=== PATIENT | female | born 2005 | race Caucasian/White ===

== ENCOUNTER 2024-11-29 21:43 | Emergency (ER) | payer OTHER, SELFPAY ==
[2024-11-29 21:43] VITALS: BP 146/96; PULSE 77; RESP 18; TEMP 36.7; O2SAT 98; BMI 39.7
[2024-11-29] MEDS: Ketorolac 30 MG/ML Syringe IM (22:34)
--- OUTSIDE RECORDS SUMMARY | 2024-11-29 22:35 | XMS RPT_ITS | CCD ---
Author Organization [facility] Care Team Providers Care Blind Aide Name Role Phone PATIENT, SELF Referring Unavailable JOSUE SAM Primary Care Unavailable PROVIDER, UNKNOWN Admitting Unavailable PROVIDER, UNKNOWN Attending Unavailable PROVIDER, UNKNOWN Attending Unavailable PATIENT, SELF Referring Unavailable JOSUE SAM Primary Care Unavailable PROVIDER, UNKNOWN Admitting Unavailable Jim Rueda Attending Unavailable Jim Rueda Attending Unavailable Jim Rueda Referring Unavailable Care Physician, No Primary Primary Care Unava ilable Jim Rueda Attending Unavailable JOSUE SAM Primary Care Unavailable RUTH MENJIVAR Attending Unavaila ble Unavailable Primary Care Provider Unavailabl e Medications Current Medications Medication Drug Class(es) Dates Sig (Normalized) Sig (Original) ethinyl estradiol 0.035 mg / norgestimate 0.25 mg oral tablet (3 sources) Progestin, Estrogen Start: 11-23-2019 norgestimate-ethin yl estradiol (PRAVIFEM- ORTHO/CYCLEN) 0.25-35 MG-MCG tablet Take 1 Tablet by mouth daily. 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 Chronic Mood disorders (3 sources) Major depressive affective disorder, recurrent episode, mild Onset: 05-11-2019 05-11-2019 Chronic Other hereditary and degenerative nervous system conditions (3 sources) Tics of organic origin Onset: 01-28-2019 01-28-2019 Chronic Other nutritional; endocrine; and metabolic disorders (3 sources) Obesity, unspecified Onset: 11-23-2019 11-23-2019 Chronic Other upper respiratory infections (1 source) Acute pharyngitis, unspecified; Translations: [Acute pharyngitis, unspecified etiology] Onset: 03-03-2024 Episodic Thyroid disorders (1 source) Goiter, unspecified 07-17-2023 Chronic Past or Other Problems Problem Classification Problem Date Documented Da te Episodic/Chronic Headache; including migraine (3 sources) Headache Onset: 01-28-2019 01-28-2019 Episodic Menopausal disorders (1 source) Hormone replacement therapy (postmenopausal) 06-17-2023 Episodic Results Test Name Value Interpretation Reference Range Facility [facility] SHERRI LOGAN ([id number]) 3 F Date Time Provider Department 03/04/24 RUTH MENJIVAR [facility] During your visit today, we recorded the following information about you: Adina Contreras LPN 03/04/2024 9:55 AM Signed ----- Message from Ruth Menjivar MD sent at 03/04/2024 7:39 AM EST ----- Please inform patient PCR positive for strep pharyngitis. Finish amoxicillin as directed. Adina Contreras LPN 03/04/2024 9:56 AM Signed Patient notified of lab results, pt voiced understanding of the results. Adina Contreras LPN Allergies As of Date: 03/04/2024 (No Known Allergies) Date Reviewed: 03/03/2024 Reviewed by: Ruth Menjivar MD - Fully Assessed Reason for Visit: Results [95] Prescriptions as of 03/04/2024 - etonogestrel (NEXPLANON) subdermal implant 68 mg 68 mg. - amoxicillin (AMOXIL) 875 mg tablet Take 1 tablet by mouth two times a day for 10 days. - ibuprofen (MOTRIN) 600 mg tablet Take 1 tablet by mouth every 6 hours. Take with food. Problem List As Of Date: 03/04/2024 (None) Encounter Status:Closed by ADINA CONTRERAS on 03/04/24 [facility] CNPN Telephone ([facility]NCA) SHERRI LOGAN ([id number]) 3 F Date Time Provider Department 03/04/24 RUTH MENJIVAR [facility] During your visit today, we recorded the following information about you: Ruth Menjivar MD 03/04/2024 4:30 PM Signed Please inform patient amoxicillin and ibuprofen sent to designated pharmacy. Savita Martinez LPN 03/04/2024 6:57 PM Signed Patient notified prescriptions have been sent to [facility] per patient request. Patient verbalized understanding. Savita Martinze LPN Allergies As of Date: 03/04/2024 (No Known Allergies) Date Reviewed: 03/03/2024 Reviewed by: Ruth Menjivar MD - Fully Assessed Reason for Visit: Patient Update [1234] Prescriptions as of 03/04/2024 - amoxicillin (AMOXIL) 875 mg tablet Take 1 tablet by mouth two times a day for 10 days. - ibuprofen (MOTRIN) 600 mg tablet Take 1 tablet by mouth every 6 hours. Take with food. - etonogestrel (NEXPLANON) subdermal implant 68 mg 68 mg. - amoxicillin (AMOXIL) 875 mg tablet Take 1 tablet by mouth two times a day for 10 days. - ibuprofen (MOTRIN) 600 mg tablet Take 1 tablet by mouth every 6 hours. Take with food. Problem List As Of Date: 03/04/2024 (None) Encounter Status:Closed by RUTH MENJIVAR on 03/04/24 [facility] CNOVon 03-03-2024 CN Office Visit (UCMNCA ) SHERRI LOGAN ([id number]) 3 F Date Time Provider Department 03/03/24 6:30 PM RUTH MENJIVAR [facility] During your visit today, we recorded the following information about you: Temperature Pulse Respiration Blood pressure 99.3 degrees 96/minute 16/minute 143/93 Weight Last Period 108.9 kg 02/17/24 Ruth Menjivar MD 03/03/2024 7:30 PM Signed Sherri Logan is a 18 year old female who presents with Sore Throat (Fatigue started on Friday) She is 18 years old presenting today with a sore throat, fatigue, cough since Friday. Patient reports that she attended a concert and shared water bottles with several individuals prior to getting sick. She states that she has not been able to work at her job at the [employer] since she became ill. She states that she has had plenty of strep pharyngitis when she was a kid and few as an adult. She presents today for further evaluation and treatment. PAST MEDICAL HISTORY Diagnosis Date Anxiety Depression There is no problem list on file for this patient. Current Outpatient Medications Medication Sig Dispense Refill etonogestrel (NEXPLANON) subdermal implant 68 mg 68 mg. hydrOXYzine HCl (ATARAX) 10 mg tablet Take 10 mg by mouth. (Patient not taking: Reported on 03/03/2024) FLUoxetine (PROZAC) 10 mg capsule Take 10 mg by mouth once daily. (Patient not taking: Reported on 03/03/2024) 3 cloNIDine HCl (CATAPRES) 0.1 mg tablet Take 0.1 mg by mouth daily at bedtime. (Patient not taking: Reported on 03/03/2024) 2 No current facility-administered medications for this visit. Social History Tobacco Use Smoking status: Never Smokeless tobacco: Never Vaping Use Vaping status: Never Used Substance Use Topics Alcohol use: Never Drug use: Never Alcohol Use: Never Tobacco Use: Never FAMILY HISTORY Problem Relation Age of Onset Depression Mother Diabetes Mother Diabetes Brother Review of Systems Constitutional: Positive for malaise/fatigue. Negative for chills and fever. HENT: Positive for sore throat. Negative for ear pain and sinus pain. Eyes: Negative for blurred vision. Respiratory: Positive for cough. Negative for hemoptysis, sputum production, shortness of breath, wheezing and stridor. Cardiovascular: Negative for chest pain. Gastrointestinal: Negative for abdominal pain. Skin: Negative for rash. Neurological: Negative for dizziness and headaches. BP 143/93 Pulse 96 Temp (Src) 99.3 (Temporal) Resp 16 Wt 240 lb (108.9kg) SpO2 100% LMP 02/17/2024 Physical Exam Vitals and nursing note reviewed. Constitutional: Comments: PHYSICAL EXAMINATION: GENERAL:The patient is alert oriented in no acute distress. HEAD: Head is atraumatic normocephalic. EYES: Extraocular muscles are intact bilaterally. Normal sclerae and conjunctivae. EARS: Tympanic membranes are normal in appearance without signs of infection. NOSE: No maxillary sinus tenderness bilaterally. MOUTH: Pharynx erythematous. Tonsils are not enlarged. Exudates not present. Uvula at midline. No dysphagia. No peritonsillar abscess. NECK: Trachea at midline. No anterior cervical adenopathy. No stridor. No trismus. No hoarseness. Normal phonation. LUNGS: No labored breathing. Lungs clear to auscultation. HEART: Regular rate and rhythm. No murmurs, rubs or gallops. MUSCULOSKELETAL: Moves all extremities. SKIN: Warm and dry no clubbing cyanosis or edema. No rashes. NEUROLOGY: Cranial nerves II through XII grossly intact without any focal neurological deficits. PSYCHIATRY: Cooperative. Normal mood and affect. Strep test negative. Cultures pending. My suspicion for strep pharyngitis is high I will treat with amoxicillin and ibuprofen. Home-going instructions discussed with patient. Follow-up if not improving. Discharged in stable condition. Procedures ASSESSMENT/PLAN: 1. Acute pharyngitis, unspecified etiology - ICD9: 462, ICD10: J02.9 - RAPID GROUP A STREP RFLX TO PCR - GROUP A STREPTOCOCCUS BY PCR - AMOXICILLIN 875 MG TABLET - IBUPROFEN 600 MG TABLET Ruth Shah MD 03/03/2024 7:29 PM Signed Discontinue ibuprofen if gastrointestinal upset develops. Patient instructed to return in the next 3 to 5 days if not improving. Patient instructed to keep routine appointment with primary care provider. Ruth Menjivar MD 03/04/2024 4:30 PM Signed Addended by: RUTH MENJIVAR on: 03/04/2024 04:30 PM Modules accepted: Orders Allergies As of Date: 03/03/2024 (No Known Allergies) Date Reviewed: 03/03/2024 Reviewed by: Ruth Menjivar MD - Fully Assessed Reason for Visit: Sore Throat [200] Cmt: Fatigue started on Friday Primary Visit Diagnosis:Acute pharyngitis, unspecified etiology [J02.9] Order(s):RAPID GROUP A STREP RFLX TO PCR [SQSTAPCR] Order #: [id number] FUTURE (more content not included)... Normal [facility] RAPID GROUP A STREP RFLX TO PCRon 03-03-2024 S. pyogenes Ag Ql (Throat) Negative Normal Negative Group A Strep Screen [facility] Comment on above: Order Comment: Speci men Type: SWAB Ordering Facility: [facility] Address: [address] [place] [address] Performed By: #### S TAPCR #### [facility] CLIA [id number] [address] [place] [address] [place] #### [id number] #### [facility] CLIA [id number] [facility] [place] [address] [place] S pyo DNA Throat Ql JIAN+prob manjit 03-03-2024 S. pyogenes DNA JIAN+probe Ql (Throat) Detected Abnormal Not detected [facility] Comment on above: Order Comment: Speci men Type: SWAB Ordering Facility: [facility] Address: [address] [place] [address] Performed By: #### S TAPCR #### [facility] CLIA [id number] [address] [place], [place] [id number] [place] #### [id number] #### [facility] CLIA [id number] [address] [place] [address] [place] Quantiferon TB-Gold+on 12-02 QFT MITOGEN MARIBELL > 10.00 Normal . [facility] Comment on above: Performed By: #### L 3400.8000 #### [facility] [address] [place], [address] QFT NIL VALUE 0 IU/mL Normal . [facility] Comment on above: Performed By: #### L 3400.8000 #### [facility] [address] [place], [address] QFT TB GOLD+ Comment Normal . [facility] Comment on above: Result Comment: Mk tiFERON-TB Gold Plus is a qualitative indirect test for M tuberculosis infection (including disease) and is intended for use in conjunction with risk assessment, radiography, and other medical and diagnostic evaluations. The QuantiFERON-TB Gold Plus result is determined by subtracting the Nil value from either TB antigen (Ag) value. The Mitogen tube serves as a control for the test. Performed By: #### L 3400.8000 #### [facility] [address] [place], [address] QFT TB POS CRIT Negative Normal Negative [facility] Comment on above: Result Comment: No r esponse to M tuberculosis antigens detected. Infection with M tuberculosis is unlikely, but high risk individuals should be considered for additional testing (ATS/IDSA/CDC Clinical Practice Guidelines, 2017). The reference range is an Antigen minus Nil result of <0.35 IU/mL. The specimen received for QuantiFERON testing was incubated by the ordering institution. Specific procedures outlined in our Directory of Services and in the package insert for the QuantiFERON Gold (In Tube) test must be followed to enable for proper stimulation of cells for the production of interferon gamma. Chemiluminescence immunoassay methodology Performed at: [facility] [employer] [id number] [employer] Sealer: Jacobo Puente PhD, Phone: [phone] Performed By: #### L 3400.8000 #### [facility] [address] [place], [place], [address] QFT TB1+ AG MARIBELL 0 IU/mL Normal . [facility] Comment on above: Performed By: #### L 3400.8000 #### [facility] [address] [place], [address] QFT TB2+ AG MARIBELL 0 IU/mL Normal . [facility] Comment on above: Performed By: #### L [id number] #### [facility] [address] [place], [place], [address] Office Visit Reporton 2023 Office Visit Report [facility] [address] [place] [address] OFFICE VISIT Date of Service: 12/01/23 MR#: [id number] Acct: [id number] Patient: SHERRI LOGAN Rep #: [id number] : 2005 Provider: NAEEM Chi Age/Sex: 18/F [place] [facility] Status: Signed Intake Intake Visit Reasons: PRE EMP/NON DOT/RESP FIT TEST/QUANTIFERON Office Procedures [facility] Billing Sheet Testing Respirator Clearance (form only): Yes Respirator Fit Testing: Yes Occquant-Quantiferon: Yes Assessment and Plan Assessment and Plan Orders: Orders Quantiferon TB-Gold+ Today Z02.1 - Encounter for pre-employment examination 12/01/23 1052 Date Jim Black Signature: Date (if applicable) CC: Normal [facility] Urgent Care Visit Reporton 0 12-01-2023 Urgent Care Visit Report [facility] [address], [address] [place] [address] OFFICE VISIT Date of Service: 12/01/23 MR#: [id number] Acct: [id number] Name: SHERRI LOGAN Rep #: [id number] : 2005 Provider: NAEEM Chi Age/Sex: 18/F [place] [facility] [place] Status: Signed Intake Intake Visit Reasons: PRE EMP[facility]NON DOT[facility] History (Updated 12/01/23 @ 10:54 by Jim HARTLEY PA) Physical exam, pre-employment HPI HPI Details: SHERRI LOGAN, is a 18 F who presents to the office today for Office Procedures Physical Exam Coding PE Coding Pre-employment PE: Yes Coding Level of Care Code No Charge Diagnoses Physical exam, pre-employment Z02.1 Assessment and Plan Assessment and Plan (1) Physical exam, pre-employment: Status: Acute 12/01/23 1200 Date Jim HARTLEY Cosigner Signature: Date (if applicable) CC: Normal [facility] 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 Audio and visual communication was utilized in real-time. I confirmed understanding of risks and benefits of telehealth visits and obtained consent to proceed with the telemedicine visit. Location of Patient: Home of patient Time-Based Billing Justifications: Charting in Epic Patient visit (including performing a medically appropriate exam) Obtaining history (or reviewing separately obtained history) Phone numbers Service Authorized by Treatment Plan/ISP: Yes MEDICATIONS: Current Outpatient Medications: * buPROPion (WELLBUTRIN) 75 MG tablet, Take 1 Tablet by mouth daily., Disp: 30 Tablet, Rfl: 2 * norgestimate-ethinyl estradiol (PRAVIFEM- ORTHO/CYCLEN) 0.25-35 MG-MCG tablet, Take 1 Tablet by mouth daily., Disp: 3 Package, Rfl: 3 SIDE EFFECTS: None reported. SIGNIFICANT LIFE CHANGES/UPDATE: None reported. Treatment Plan Goal Addressed Today: Psy Tx Goals 07/08/2017 Goal 1 Decrease depressive symptoms as measured by the PHQ9 Some recent data might be hidden SCALES: No Chief Complaint: depression SUBJECTIVE: Doing pretty good, denies feeling sad or depressed (denies feeling hopeless, worthless, no anhedonia, good energy level, sleep is preserved), denies SI/HI and AVH. Has been off medication for about almost 2 months. Has been doing ok in home and at school. Bringing grades up and feels happy about it. Not talking to therapist. No concerns for safety or behavior. OARRS was reviewed today: No concerns There were no vitals taken for this visit. OBJECTIVE/MENTAL STATUS EXAM: 1. APPEARANCE: well groomed 2. GAIT: Normal 3. BEHAVIOR: cooperative 4. ORIENTATION: Oriented to time, person AND place 5. SPEECH: spontaneous, normal rate and flow 6. THOUGHT PROCESS: logical, organized 7. THOUGHT CONTENT: No evidence of paranoia, No evidence of delusions 8. PERCEPTIONS: No evidence of perceptual disturbance 9. MOOD: euthymic 10. AFFECT: range full 11. ATTENTION/CONCENTRATIO N: Sustained 12. RECENT AND REMOTE MEMORY: Within normal limits 13. JUDGMENT AND INSIGHT: Good Cognitive function is sufficient for dialogue with therapist: Yes Patient Safety Screener (PSS-3) RISK ASSESSMENT: 1. In the past two weeks, have you felt down, depressed, or hopeless? No 2. In the past two weeks, have you had thoughts of killing yourself? No 3. In your lifetime, have you ever attempted to kill yourself? No PAIN ASSESSMENT: Patient did not report pain today. LAB STUDIES AND TESTS: None today ASSESSMENT: Symptoms in partial remission Mood stable Coping better Adjustment improving Stopped medication and doing well, not depressed, not anxious, denies SI/HI and AVH. INTERACTIVE COMPLEXITY: None DIAGNOSTIC IMPRESSION: Diagnosis: Major depressive disorder in partial remission. LIZZY. Active/pertinent medical issues impacting patient presentation: None MENTAL HEALTH INTERVENTIONS: Adjust medications: Will stop wellbutrin. Continue recommending psychotherapy. PATIENT RESPONSE TO INTERVENTIONS: Verbalized information correctly Verbalizes understanding Return demo correct CHANGES TO TREATMENT PLAN: None needed at this time. PROMIS: no Have you had any change in the condition of your health?No Have you had a visit with a primary care provider in the past 12 months?Yes PATIENT EDUCATION ON CURRENT PROTOCOL: RISKS AND BENEFITS OF MEDICATIONS DISCUSSED: Yes ENCOURAGED TO MAKE PHONE CALLS WITH CONCERNS: Yes AVAILABILITY OF ED AFTER CLINIC HOURS DISCUSSED: Yes FOLLOW-UP PLAN: Is the patient on two or more psychotropic medications in the same class? No Follow up required to prevent relapse: Yes Follow up: 3 months Problems being treated are amenable to intervention: Yes Pharmacological Management appointment: To be arranged Marshall Rodríguez MD PGY-3, Psychiatry Pager [phone] Attending/Teaching Physician Note: I evaluated Sherri Logan. I personally obtained the ceron and critical portions of the history and physical exam. I reviewed the resident's documentation and discussed the patient with the resident. I agree with the resident's medical decision making as documented in the resident's note. 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 Audio and visual communication was utilized in real-time. I confirmed understanding of risks and benefits of telehealth visits and obtained consent to proceed with the telemedicine visit. Location of Patient: Home of patient Time-Based Billing Justifications: Charting in Epic Patient visit (including performing a medically appropriate exam) Obtaining history (or reviewing separately obtained history) No one logging to video visit Phone numbers Called number on file. Per mom Jorden is at school. Wants to reschedule. Patient was a no show. Marshall Rodríguez MD PGY-3, Psychiatry Pager [phone] This encounter was opened in error. Patient was a No-Show. Please disregard. Normal [facility] Vital Signs Date Time Vital Sign Value Performing Clinician Facility 07-17-2023 15:29-0400 Body temperature 97.81 [degF] Carol Mcnamara MD Other Phone: [facility] 07-17-2023 15:29-0400 Body weight 113.85 kg Carol Mcnamara MD Other Phone: [facility] 07-17-2023 15:29-0400 Diastolic blood pressure 87 mm[Hg] Carol Mcnamara MD Other Phone: [facility] 07-17-2023 15:29-0400 Heart rate 95 /min Carol Mcnamara MD Other Phone: [facility] 07-17-2023 15:29-0400 SaO2% (BldA) [Mass fraction] 97 % Carol Mcnamara MD Other Phone: [facility] 07-17-2023 15:29-0400 Systolic blood pressure 115 mm[Hg] Carol Mcnamara MD Other Phone: [facility] Encounters Encounter Date Encounter Type Care Provider Facility Start: 03-03-2024 End: 03-05-2024 ambulatory JOSUE SIMSY CECY Facility:[id number] Start: 12-01-2023 End: 12-01-2023 ambulatory Jim HARTLEY [place] [place] Start: 07-17-2023 End: 07-17-2023 Office outpatient new 45 minutes Carol Mcnamara MD Other Phone: [facility] Comment on above: Gender dysphoria (Pr imary Dx); Goiter Start: 06-23-2023 Patient encounter procedure Royal Amos RN [facility] Comment on above: Referral to Speciali st; Care Coordination Start: 06-17-2023 Transcribe Orders Nanci Park Other Phone: [facility] Physician Referral Service Start: 08-31-2020 End: 09-13-2020 ambulatory SELF PATIENT Facility:[facility] Start: 08-29-2020 ambulatory UNKNOWN [facility]ER [facility] Date Care Activity Detail Author Start: 2054 Shingles (RZV) Vacci ne (1 of 2) Shingles (RZV) Vaccine (1 of 2) [facility] Start: 06-07-2025 Tetanus vaccination Tetanus (T d or Tdap) Booster [facility] Start: 12-20-2022 COVID-19 Vaccine ( season) COVID-19 Vaccine ( season) [facility] Start: 12-20-2022 Influenza vaccination Influenza Vacc ine (#1) [facility] Start: 2022 Hepatitis C screening Hepatitis C An tibody [facility] Start: 2022 Screening for Chlamy luis a trachomatis STI Screening (Age 18-24) [facility] Start: 2020 Meningococcal B (Bexsero,OMV) Vaccine (Optional,16-23 years) Meningococcal B (Bexsero,OMV) Vaccine (Optional,16-23 years) [facility] Start: 2019 HIV screening HIV Test [email or web address] Assay of testosteron e total [facility] Work Phone: Comment on above: Ordered: 07/17/2023 Assay of thyroid stimulating hormone tsh TSH Lab Routine Goiter Ordered: 07/17/2023 [facility] Work Phone: Comment on above: Ordered: 07/17/2023 Basic metabolic 2000 panel - Serum or Plasma BASIC METABOLIC PANEL Lab Routine Gender dysphoria Ordered: 07/17/2023 [facility] Work Phone: Comment on above: Ordered: 07/17/2023 CBC panel - Blood by Automated count COMPLETE BLOOD COUNT Lab Routine Gender dysphoria Ordered: 07/17/2023 [facility] Work Phone: Comment on above: Ordered: 07/17/2023 Lipid 1996 panel - Serum or Plasma FULL LIPID PROFILE Lab Routine Gender dysphoria Ordered: 07/17/2023 [facility] [employer] [facility] Work Phone: Comment on above: Ordered: 07/17/2023 Transferase alanine amino alt sgpt ALANINE AMINO TRANSFERASE Lab Routine Gender dysphoria Ordered: 07/17/2023 [facility] Work Phone: Comment on above: Ordered: 07/17/2023 Transferase aspartat e amino ast sgot ASPARTATE AMINOTRANSFERASE Lab Routine Gender dysphoria Ordered: 07/17/2023 [facility] [employer] [facility] Work Phone: Comment on above: Ordered: 07/17/2023 Immunizations Immunization Date Immunization Notes Care Provider [facility] 08-29-2021 meningococcal oligosaccharide (groups A, C, Y and W-135) diphtheria toxoid conjugate vaccine (MCV4O) Nanci Skorvanek Other Phone: [facility] [employer] [facility] 12-08-2018 varicella virus vaccine Ginny yoan Skorvanek Other Phone: [facility] [employer] [facility] 03-06-2017 Human Papillomavirus 9-valent vaccine Nanci Skorvanek Other Phone: [facility] [facility] Work Phone: 03-06-2017 influenza, injectabl e, quadrivalent, preservative free Nanci Skorvanek Other Phone: [facility] [employer] [facility] Work Phone: 03-06-2017 influenza virus vacc ine, unspecified formulation Nanci Skorvanek Other Phone: [facility] [employer] [facility] Work Phone: 06-07-2015 Human Papillomavirus 9-valent vaccine Nanci Skorvanek Other Phone: [facility] [employer] [facility] Work Phone: 06-07-2015 meningococcal oligosaccharide (groups A, C, Y and W-135) diphtheria toxoid conjugate vaccine (MCV4O) Nanci Skorvanek Other Phone: [facility] [employer] [facility] Work Phone: 06-07-2015 tetanus toxoid, redu rossi diphtheria toxoid, and acellular pertussis vaccine, adsorbed Nanci Skorvanek Other Phone: [facility] Work Phone: 2014 influenza, injectabl e, quadrivalent, preservative free Nanci Skorvanek Other Phone: [facility] Work Phone: 07-04-2009 diphtheria, tetanus toxoids and acellular pertussis vaccine, unspecified formulation Nanci Skorvanek Other Phone: [facility] Work Phone: 07-04-2009 measles, mumps and rubella virus vaccine Nanci Skorvanek Other Phone: [facility] Work Phone: 07-04-2009 poliovirus vaccine, unspecified formulation Nanci Skorvanek Other Phone: [facility] Work Phone: 07-04-2009 varicella virus vaccine Ginny yoan Skorvanek Other Phone: [facility] Work Phone: 08-11-2007 hepatitis A vaccine, pediatric/adolescent dosage, 2 dose schedule Nanci Skorvanek Other Phone: [facility] Work Phone: 2006 hepatitis A vaccine, pediatric/adolescent dosage, 2 dose schedule Nanci Skorvanek Other Phone: [facility] Work Phone: 2006 influenza virus vacc ine, unspecified formulation Nanci Skorvanek Other Phone: [facility] Work Phone: 07-04-2005 diphtheria, tetanus toxoids and acellular pertussis vaccine, unspecified formulation Nanci Skorvanek Other Phone: [facility] Work Phone: 07-04-2005 haemophilus influenz ae type b vaccine, conjugate unspecified formulation Nanci Skorvanek Other Phone: [facility] Work Phone: 07-04-2005 hepatitis B vaccine, unspecified formulation Nanci Skorvanek Other Phone: [facility] Work Phone: 07-04-2005 pneumococcal Conjuga te, unspecified formulation Nanci Skorvanek Other Phone: [facility] Work Phone: 05-22-2005 varicella virus vaccine Ginny yoan Skorvanek Other Phone: [facility] Work Phone: 05-01-2005 influenza virus vacc ine, unspecified formulation Nanci Skorvanek Other Phone: [facility] Work Phone: 05-01-2005 measles, mumps and rubella virus vaccine Nanci Skorvanek Other Phone: [facility] Work Phone: 02-16-2005 influenza nasal, unspecified formulation Nanci Skorvanek Other Phone: [facility] Work Phone: 2004 diphtheria, tetanus toxoids and acellular pertussis vaccine, unspecified formulation Nanci Skorvanek Other Phone: [facility] Work Phone: 2004 haemophilus influenz ae type b vaccine, conjugate unspecified formulation Nanci Skorvanek Other Phone: [facility] Work Phone: 2004 pneumococcal Conjuga te, unspecified formulation Nanci Skorvanek Other Phone: [facility] Work Phone: 2004 poliovirus vaccine, unspecified formulation Nanci Skorvanek Other Phone: [facility] Work Phone: 2004 diphtheria, tetanus toxoids and acellular pertussis vaccine, unspecified formulation Nanci Skorvanek Other Phone: [facility] Work Phone: 2004 haemophilus influenz ae type b vaccine, conjugate unspecified formulation Nanci Skorvanek Other Phone: [facility] Work Phone: 2004 pneumococcal Conjuga te, unspecified formulation Nanci Skorvanek Other Phone: [facility] Work Phone: 2004 poliovirus vaccine, unspecified formulation Nanci Skorvanek Other Phone: [facility] Work Phone: 2004 diphtheria, tetanus toxoids and acellular pertussis vaccine, unspecified formulation Nanci Skorvanek Other Phone: [facility] Work Phone: 2004 haemophilus influenz ae type b vaccine, conjugate unspecified formulation Nanci Skorvanek Other Phone: [facility] Work Phone: 2004 hepatitis B vaccine, unspecified formulation Nanci Skorvanek Other Phone: [facility] Work Phone: 2004 pneumococcal Conjuga te, unspecified formulation Nanci Skorvanek Other Phone: [facility] Work Phone: 2004 poliovirus vaccine, unspecified formulation Nanci Skorvanek Other Phone: [facility] Work Phone: 2004 hepatitis B vaccine, unspecified formulation Nanci Park Other Phone: [facility] [employer] [facility] Work Phone: Payers Date Payer Category Payer Unknown [id number] 2023 Self-pay 2023 Private Health Insurance [id number] 2020 Private Health Insurance [id number] 1981 Unknown [id number] 1981 Unknown [id number] Unknown [id number] Unknown [id number] Unknown [id number] Social History Date Type Detail Facility Start: 01-28-2019 Tobacco smoking stat [facility] Never smoked tobacco [facility] [employer] [facility] History of tobacco use Passive smoker [facility] [employer] [facility] Work Phone: Start: 01-28-2019 Tobacco use and exposure Smokeless tobacco non-user [facility] [employer] [facility] Work Phone: Start: 01-28-2019 Tobacco Comment Smoker present in [facility] [employer] [facility] Work Phone: Start: 2004 Sex Assigned At Not on file T [facility] [employer] [facility] Work Phone: Start: 11-23-2019 Gender identity Not on file [facility] [employer] [facility] Work Phone: Start: 11-23-2019 History of Social function [facility] [employer] [facility] Work Phone: Adolescent depressio n screening assessment 0 [facility] Work Phone: Progress note 03-03-2024 Note Date & Type Note Facility 03-03-2024 Note HNO ID: [id number] Author: RUTH MENJIVAR MD Service: ? Author Type: Physician Type: Progress Notes Filed: 03/03/2024 19:30 Note Text: Sherri Logan is a 18 year old female who presents with Sore Throat (Fatigue started on Friday) She is 18 years old presenting today with a sore throat, fatigue, cough since Friday. Patient reports that she attended a concert and shared water bottles with several individuals prior to getting sick. She states that she has not been able to work at her job at the [employer] since she became ill. She states that she has had plenty of strep pharyngitis when she was a kid and few as an adult. She presents today for further evaluation and treatment. PAST MEDICAL HISTORY Diagnosis Date Anxiety Depression There is no problem list on file for this patient. Current Outpatient Medications Medication Sig Dispense Refill etonogestrel (NEXPLANON) subdermal implant 68 mg 68 mg. hydrOXYzine HCl (ATARAX) 10 mg tablet Take 10 mg by mouth. (Patient not taking: Reported on 03/03/2024) FLUoxetine (PROZAC) 10 mg capsule Take 10 mg by mouth once daily. (Patient not taking: Reported on 03/03/2024) 3 cloNIDine HCl (CATAPRES) 0.1 mg tablet Take 0.1 mg by mouth daily at bedtime. (Patient not taking: Reported on 03/03/2024) 2 No current facility-administered medications for this visit. Social History Tobacco Use Smoking status: Never Smokeless tobacco: Never Vaping Use Vaping status: Never Used Substance Use Topics Alcohol use: Never Drug use: Never Alcohol Use: Never Tobacco Use: Never FAMILY HISTORY Problem Relation Age of Onset Depression Mother Diabetes Mother Diabetes Brother Review of Systems Constitutional: Positive for malaise/fatigue. Negative for chills and fever. HENT: Positive for sore throat. Negative for ear pain and sinus pain. Eyes: Negative for blurred vision. Respiratory: Positive for cough. Negative for hemoptysis, sputum production, shortness of breath, wheezing and stridor. Cardiovascular: Negative for chest pain. Gastrointestinal: Negative for abdominal pain. Skin: Negative for rash. Neurological: Negative for dizziness and headaches. BP 143/93 Pulse 96 Temp (Src) 99.3 (Temporal) Resp 16 Wt 240 lb (108.9kg) SpO2 100% LMP 02/17/2024 Physical Exam Vitals and nursing note reviewed. Constitutional: Comments: PHYSICAL EXAMINATION: GENERAL:The patient is alert oriented in no acute distress. HEAD: Head is atraumatic normocephalic. EYES: Extraocular muscles are intact bilaterally. Normal sclerae and conjunctivae. EARS: Tympanic membranes are normal in appearance without signs of infection. NOSE: No maxillary sinus tenderness bilaterally. MOUTH: Pharynx erythematous. Tonsils are not enlarged. Exudates not present. Uvula at midline. No dysphagia. No peritonsillar abscess. NECK: Trachea at midline. No anterior cervical adenopathy. No stridor. No trismus. No hoarseness. Normal phonation. LUNGS: No labored breathing. Lungs clear to auscultation. HEART: Regular rate and rhythm. No murmurs, rubs or gallops. MUSCULOSKELETAL: Moves all extremities. SKIN: Warm and dry no clubbing cyanosis or edema. No rashes. NEUROLOGY: Cranial nerves II through XII grossly intact without any focal neurological deficits. PSYCHIATRY: Cooperative. Normal mood and affect. Strep test negative. Cultures pending. My suspicion for strep pharyngitis is high I will treat with amoxicillin and ibuprofen. Home-going instructions discussed with patient. Follow-up if not improving. Discharged in stable condition. Procedures ASSESSMENT/PLAN: 1. Acute pharyngitis, unspecified etiology - ICD9: 462, ICD10: J02.9 - RAPID GROUP A STREP RFLX TO PCR - GROUP A STREPTOCOCCUS BY PCR - AMOXICILLIN 875 MG TABLET - IBUPROFEN 600 MG TABLET [facility] History of Present illness Narrative 07-17-2023 Carol Mcnamara MD - 07/17/2023 3:33 PM Rell Baker - 07/17/2023 3:26 PM Carol Bello MD - 07/17/2023 3:24 PM EDT Note Date & Type Note Facility 07-17-2023 History of Present illness Narrative Images from the original note were not included. Sherri Logan 18 year old Chief Complaint Patient presents with New patient, to establish relationship Referring Provider: Nanci Park HPI: She is here to discuss trans gender thoughts Since she was 11 years old, she was thinking she should be a boy and called as a boy. Started thinking about transgender for 2 year now Has Nexplanon gets occasional spotting. She smokes daily, alcohol socially She lives with parents, family (except for dad) supportive She has a job Never been and nut sure if she would like to in the future Patient reports Anxiety; headaches. Patient denies: Difficulty swallowing food; Hoarseness; Chocking sensation; Neck pressure; Neck pain; Heat Intolerance; Cold intolerance; Palpitations; Depression; Tremors; Memory problem; Dry skin; Hair loss; Insomnia; Bowel movement problem: Fatigue: Proximal Muscle weakness; Weight changes ROS: As per history of present illness. All other systems reviewed and negative. 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 Anxiety 05/11/2019 Mild episode of recurrent major depressive disorder (HCC) 05/11/2019 Tics of organic origin 01/28/2019 Frequent headaches 01/28/2019 Family History Problem Relation Age of Onset Asthma Father Diabetes Mellitus Maternal Grandfather Lung Disease Paternal Uncle Social History Socioeconomic History Marital status: Single Tobacco Use Smoking status: Passive Smoke Exposure - Never Smoker Smokeless tobacco: Never Tobacco comments: Smoker present in home Substance and Sexual Activity Sexual activity: Never No Known Allergies Lab Results Component Value Date TSH 1.139 03/06/2017 Physical Examination: Constitution: 1-Vital signs: BP 115/87 Pulse 95 Temp 97.8 F (36.6 C) (Temporal) Wt 251 lb (113.9 kg) SpO2 97% 2-Appearance: obese Eyes: Conjunctivae: normal, not injected. lids: normal. No Upper lid retraction, No Lid Lag. No Periorbital edema, No Proptosis. Extra Ocular Movement intact HENT: Normocephalic atraumatic Ear, and nose, normal appearance, no lesions Mouth: Oral mucosa moist; Lip moist, no lesions or edema Neck: 1-Thyroid: no thyromegaly or nodules palpated. No tenderness 2. Neck- supple. ROM normal. Trachea midline. Gastrointestinal: 1-Abdomen: soft, no distention or tenderness, 2. Palpation: Soft, no tenderness. no mass palpated, no organomegaly Skin: 1-Appearance: No pallor, jaundice or erythema.. acne 2-Palpation: smooth warm moist Musculoskeletal: 1-Gait and station normal 2. No hand tremor Psychiatric: 1-Orientation: Patient appears well oriented to place, person and time. 2-Mood anxious. affect: flat Assessment and plan: Sherri was seen today for new patient, to establish relationship. Diagnoses and all orders for this visit: Gender dysphoria - BASIC METABOLIC PANEL - ASPARTATE AMINOTRANSFERASE - ALANINE AMINO TRANSFERASE - COMPLETE BLOOD COUNT - FULL LIPID PROFILE - SEX BINDING HORMONE (SHBG), TESTOSTERONE, FREE AND BIOAVAILABLE - TESTOSTERONE, TOTAL - PSYCHIATRY SERVICE REQUEST, ADULT Goiter - TSH Gender dysphoria (thoughts for 2 years) Has not seen a therapist. She thinks she has good support in the family Discussed with her and her friend about the course of treatment and expectations I also advised her to think about fertility and if she with consider being in the future I referred to psych for evaluation, she can call to make appointment after she gets clearance letter Orders & Meds Signed During This Encounter Basic Metabolic Panel Aspartate Aminotransferase (A* Alanine Amino Transferase Complete Blood Count Full Lipid Profile Sex Binding Hormone,Testosterone, Fr&Bio Testosterone, Total TSH Behavioral Health Service Request (Adult) Follow up in No follow-ups on file. Carol Mcnamara MD Patient was identified by name and date of . 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 Patient at risk for falls:No Falls Risk protocol implemented: Yes documented in this encounter [facility] [employer] [facility] Work Phone: Evaluation note Note Date & Type Note Facility Evaluation note Diagnosis Counseling for hormone replacement therapy- Primary Need for prophylactic hormone replacement therapy (postmenopausal) documented in this encounter [facility] [employer] [facility] Work Phone: Evaluation note Note Date & Type Note Facility Evaluation note Diagnosis Gender dysphoria- Primary Goiter Goiter, unspecified documented in this encounter [facility] [employer] [facility] Work Phone: Summary Purpose Family History No Family History Records FoundNo Family History Records FoundNo Family History Records Found Advance Directives No Advanced Directives Records FoundNo Advanced Directives Records FoundNo Advanced Directives Records Found Reason for Referral Specialty Diagnoses / Procedures Referred By Ramila schmidt Referred To Contact Endocrinology Diagnoses Counseling for hormone replacement therapy Nanci Park [address] [address] [facility] ENDOCRINOLOGY [address] [place] [address] Referral ID Status Reason Start Date Expiration Date V isits Requested Visits Authorized [id number] Authorized 06/19/2023 06/17/2024 3 3 Scheduling Instructions Please call the Endocrinology Clinic at [phone] to schedule an appointment if one was not made for you today. Question Answer Patient to be evaluated for: Hormones [10] Comments No prior visits in Endocrinology Specialty Diagnoses / Procedures Referred By Ramila schmidt Referred To Contact Psychiatry Diagnoses Gender dysphoria Carol Mcnamara MD [address] [place] [address] [facility] PSY ADULT GENERAL [address] [place] [address] Referral ID Status Reason Start Date Expiration Date V isits Requested Visits Authorized [id number] Authorized 07/17/2023 07/16/2024 3 3 Scheduling Instructions You have been referred to Outpatient Behavioral Health. In order to begin services, you will need to attend an intake assessment with a licensed retail supervisor. (No medications will be provided at this appointment. Linkage to treatment is made after completion of the initial assessment.) To schedule an intake, please contact our office at and we will schedule you an appointment with a licensed retail supervisor. All scheduled intake appointments run between 8AM-3:00PM Friday through Friday with some capacity for evening appointments. Intakes are available in person or via video. Assessment locations are as follows: o [address] [facility] (walk-in available 8 a.m.-2 p.m, first come first served) o [address] [facility] (by appointment only) For quicker assistance, please consider utilizing our online scheduling tool at [email or web address]. We look forward to assisting you. Thank you for choosing [employer]. Question Answer Behavioral Health Service Options Counseling Comments Please utilize the [id number] Integrated Behavioral Health referral if initiating Psychology or Psychiatry services from a site that offers Integrated Behavioral Health. Please utilize the PAX555, Addiction Referral Outpatient if requesting that this patient be evaluated for Substance Use Disorder (RABIA) reasons. Additional Source Comments INFORMATION SOURCE (unrecogn ized section and content) DATE CREATED AUTHOR 05/24/2021 [facility] [employer] [facility] DATE CREATED AUTHOR AUTHOR'S ORGANIZ ATION 01/10/2024 [facility] DATE CREATED AUTHOR AUTHOR'S ORGANIZ ATION 03/08/2024 [facility] Reason for Visit (unrecogniz ed section and content) Reason Onset Date Comments Referral to Specialist 06/23/2023 Care Coordination 06/23/2023 Reason Comments New patient, to establish relationship Specialty Diagnoses / Procedures Referred By Ramila schmidt Referred To Contact Endocrinology Diagnoses Counseling for hormone replacement therapy Nanci Park [address] [facility] [address] [place] [address] [facility] ENDOCRINOLOGY [address] [place], [place] [id number] Referral ID Status Reason Start Date Expiration Date V isits Requested Visits Authorized [id number] Authorized 06/19/2023 06/17/2024 3 3 FOR RECORDS PERTAINING TO PATIENTS WHO ARE OR HAVE BEEN ENROLLED IN A CHEMICAL DEPENDENCY/SUBSTANCEABUSE PROGRAM, SOME INFORMATION MAY BE OMITTED. This clinical summary was aggregated from multiple sources. Caution should be exercised in using it in the provision of clinical care. This summary normalizes information from multiple sources, and as a consequence, information in this document may materially change the coding, format and clinical context of patient data. In addition, data may be omitted in some cases. CLINICAL DECISIONS SHOULD BE BASED ON THE PRIMARY CLINICAL RECORDS. [facility] [employer] [facility]. provides no warranty or guarantee of the accuracy or completeness of information in this document.
--- OUTSIDE RECORDS SUMMARY | 2024-11-29 22:35 | XMS RPT_ITS | CCD ---
Author Organization [facility] Care Team Providers Care Admissions Manager Name Role Phone PATIENT, SELF Referring Unavailable JOSUE SAM Primary Care Unavailable PROVIDER, UNKNOWN Admitting Unavailable PROVIDER, UNKNOWN Attending Unavailable PROVIDER, UNKNOWN Attending Unavailable PATIENT, SELF Referring Unavailable JOSUE ASM Primary Care Unavailable PROVIDER, UNKNOWN Admitting Unavailable [...] Test Name Value Interpretation Reference Range Facility [facility] 03-04-2024 [facility] Tele[facility] (UCMNCA) SHERRI LOGAN ([id number]) 3 F Date Time Provider Department 03/04/24 RUTH MENJIVAR [facility] During your visit today, we recorded the [...] Encounter Status:Closed by ADINA CONTRERAS on 03/04/24 [facility] CNPN Telephone (UCMNCA) SHERRI LOGAN ([id number]) 3 F Date Time Provider Department 03/04/24 RUTH MENJIVAR [facility] During your visit today, we recorded the following information about you: Ruth Menjivar MD 03/04/2024 4:30 PM Signed Please inform patient amoxicillin and ibuprofen sent to designated pharmacy. Savita Martinez LPN 03/04/2024 6:57 PM Signed Patient notified prescriptions have been sent to [facility] per patient request. Patient verbalized understanding. 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 She states that [...] STREP RFLX TO PCR [SQSTAPCR] Order #: [id number] FUTURE (more content not included)... Normal [facility] RAPID GROUP A STREP RFLX TO PCRon 03-03-2024 S. pyogenes Ag Ql (Throat) Negative Normal Negative Group A Strep Screen [facility] Comment on above: Order Comment: Speci men Type: SWAB Ordering Facility: [facility] Address: [address] [place] [address] Performed By: #### S TAPCR #### [facility] CLIA [id number] [address] [place] [address] [place] #### [id number] #### [facility] CLIA [id number] [facility] [place] [address] [place] S pyo DNA Throat Ql JIAN+prob manjit 03-03-2024 S. pyogenes DNA JIAN+probe Ql (Throat) Detected Abnormal Not detected [facility] Comment on above: Order Comment: Speci men Type: SWAB Ordering Facility: [facility] Address: [address] [place] [address] Performed By: #### S TAPCR #### [facility] CLIA [id number] [address] [place], [place] [id number] [place] #### [id number] #### [facility] CLIA [id number] [address] [place] [address] [place] Quantiferon TB-Gold+on 12-02 QFT MITOGEN MARIBELL > 10.00 Normal . [facility] Comment on above: Performed By: #### L 3400.8000 #### [facility] [address] [place], [address] QFT NIL VALUE 0 IU/mL Normal . [facility] Comment on above: Performed By: #### L 3400.8000 #### [facility] [address] [place], [address] QFT TB GOLD+ Comment Normal . [facility] Comment on above: Result Comment: Mk tiFERON-TB [...] test. Performed By: #### L 3400.8000 #### [facility] [address] [place], [address] QFT TB POS CRIT Negative Normal Negative [facility] Comment on above: Result Comment: No r [...] interferon gamma. Chemiluminescence immunoassay methodology Performed at: [facility] [email or web address] [id number] Professor Of Industrial Technology: Jacobo Puente PhD, Phone: [phone] Performed By: #### L [id number] #### [facility] [address] [place], [place], [address] QFT TB1+ AG MARIBELL 0 IU/mL Normal . [facility] Comment on above: Performed By: #### L [id number] #### [facility] [address] [place], [address] QFT TB2+ AG MARIBELL 0 IU/mL Normal . [facility] Comment on above: Performed By: #### L [id number] #### [facility] [address] [place], [place], [address] Office Visit Reporton 2023 Office Visit Report [facility] [address] [place] [address] OFFICE VISIT Date of Service: 12/01/23 MR#: [id number] Acct: [id number] Patient: SHERRI LOGAN Rep #: [id number] : 2005 Provider: NAEEM Chi Age/Sex: 18/F Location: [facility] Status: Signed Intake Intake Visit Reasons: PRE EMP/NON DOT/RESP FIT TEST/QUANTIFERON Office Procedures [facility] Billing Sheet Testing Respirator Clearance (form only): Yes Respirator Fit Testing: Yes Occquant-Quantiferon: Yes Assessment and Plan Assessment and Plan Orders: Orders Quantiferon TB-Gold+ Today Z02.1 - Encounter for pre-employment examination 12/01/23 1052 Date Jim Black Signature: Date (if applicable) CC: Normal [facility] Urgent Care Visit Reporton 0 12-01-2023 Urgent Care Visit Report [facility] [address] [place] [address] OFFICE VISIT Date of Service: 12/01/23 MR#: [id number] Acct: [id number] Name: SHERRI LOGAN Rep #: [id number] : 2005 Provider: NAEEM Chi Age/Sex: 18/F Location: [facility] Status: Signed Intake Intake Visit Reasons: PRE EMP/NON DOT[facility] History (Updated 12/01/23 @ 10:54 by [...] Cosigner Signature: Date (if applicable) CC: Normal [facility] Progress Noteson 08-31-2020 [employer] Worker Authentication Interface Message Text PHARMACOLOGIC MANAGEMENT: DATE: [...] arranged Marshall Rodríguez MD PGY-3, Psychiatry Pager [phone] Attending/Teaching Physician Note: I evaluated Sherri Logan. I personally obtained the ceron and critical portions of the history and physical exam. I reviewed the resident's documentation and discussed the patient with the resident. I agree with the resident's medical decision making as documented in the resident's note. Phone: Time spent 7 minutes Chai Rachel MD Child and Adolescent Psychiatrist Pin [phone] Pager [phone] 09/01/2020 Normal [facility] [employer] [facility] Progress Noteson 08-29-2020 [employer] Worker Authentication Interface Message Text PHARMACOLOGIC MANAGEMENT: DATE: [...] mm[Hg] Carol Mcnamara MD Other Phone: [facility] [employer] [facility] Encounters Encounter Date Encounter Type Care Provider Facility Start: 03-03-2024 End: 03-05-2024 ambulatory JOSUE SIMSY CECY Facility:[id number] Start: 12-01-2023 End: 12-01-2023 ambulatory Jim HARTLEY Facility:[facility] Start: 07-17-2023 End: 07-17-2023 Office outpatient new 45 minutes Carol Mcnamara MD Other Phone: [facility] Comment on above: Gender dysphoria (Pr imary Dx); Goiter Start: 06-23-2023 Patient encounter procedure Royal Amos RN [facility] Comment on above: Referral to Speciali st; Care Coordination Start: 06-17-2023 Transcribe Orders Nanci Park Other Phone: [facility] Physician Referral Service Start: 08-31-2020 End: 09-13-2020 ambulatory SELF PATIENT Facility:[facility] Start: 08-29-2020 ambulatory UNKNOWN [facility] Plan of Treatment Date Care Activity Detail Author Start: 2054 Shingles (RZV) Vacci ne (1 of 2) Shingles (RZV) Vaccine (1 of 2) [facility] [employer] [facility] Start: 06-07-2025 Tetanus vaccination Tetanus (T d or Tdap) Booster [facility] [employer] [facility] Start: 12-20-2022 COVID-19 Vaccine ( season) COVID-19 Vaccine ( season) [facility] [employer] [facility] Start: 12-20-2022 Influenza vaccination Influenza Vacc ine (#1) [facility] [employer] [facility] Start: 2022 Hepatitis C screening Hepatitis C An tibody [facility] [employer] [facility] Start: 2022 Screening for Chlamy luis a trachomatis STI Screening (Age 18-24) [facility] [employer] [facility] Start: 2020 Meningococcal B (Bexsero,OMV) Vaccine (Optional,16-23 years) Meningococcal B (Bexsero,OMV) Vaccine (Optional,16-23 years) [facility] [employer] [facility] Start: 2019 HIV screening HIV Test [facility] Assay of testosteron e total [employer] Work Phone: Comment on above: Ordered: 07/17/2023 Assay of thyroid stimulating hormone tsh TSH Lab Routine Goiter Ordered: 07/17/2023 [facility] [employer] Work Phone: Comment on above: Ordered: 07/17/2023 Basic metabolic 2000 panel - Serum or Plasma BASIC METABOLIC PANEL Lab Routine Gender dysphoria Ordered: 07/17/2023 [facility] [employer] [facility] Work Phone: Comment on above: Ordered: 07/17/2023 CBC panel - Blood by Automated count COMPLETE BLOOD COUNT Lab Routine Gender dysphoria Ordered: 07/17/2023 [facility] [employer] [facility] Work Phone: Comment on above: Ordered: 07/17/2023 Lipid 1996 panel - Serum or Plasma FULL LIPID PROFILE Lab Routine Gender dysphoria Ordered: 07/17/2023 [facility] [employer] [facility] Work Phone: Comment on above: Ordered: 07/17/2023 Transferase alanine amino alt sgpt ALANINE AMINO TRANSFERASE Lab Routine Gender dysphoria Ordered: 07/17/2023 [facility] Work Phone: Comment on above: Ordered: 07/17/2023 Transferase aspartat e amino ast sgot ASPARTATE AMINOTRANSFERASE Lab Routine Gender dysphoria Ordered: 07/17/2023 [facility] [employer] [facility] Work Phone: Comment on above: Ordered: 07/17/2023 Immunizations Immunization Date Immunization Notes Care Provider Fa [facility] 08-29-2021 meningococcal oligosaccharide (groups A, C, Y and W-135) diphtheria toxoid conjugate vaccine (MCV4O) Nanci Skorvanek Other Phone: [facility] [employer] [facility] 12-08-2018 varicella virus vaccine Ginny yoan Skorvanek Other Phone: [facility] [employer] [facility] 03-06-2017 Human Papillomavirus 9-valent vaccine Nanci Skorvanek Other Phone: [facility] [employer] [facility] Work Phone: 03-06-2017 influenza, injectabl e, quadrivalent, preservative free Nanci Skorvanek Other Phone: [facility] [employer] [facility] Work Phone: 03-06-2017 influenza virus vacc ine, unspecified formulation Nanci Skorvanek Other Phone: [facility] [employer] [facility] Work Phone: 06-07-2015 Human Papillomavirus 9-valent vaccine Nanci Skorvanek Other Phone: [facility] [employer] [facility] Work Phone: 06-07-2015 meningococcal oligosaccharide (groups A, C, Y and W-135) diphtheria toxoid conjugate vaccine (MCV4O) Nanci Skorvanek Other Phone: [facility] [employer] [facility] Work Phone: 06-07-2015 tetanus toxoid, redu [...] unspecified formulation Nanci Park Other Phone: [facility] [employer] [facility] Work Phone: Payers Date Payer Category Payer Unknown [id number] 2023 Self-pay 2023 Private Health Insurance [id number] 2020 Private Health Insurance [id number] 1981 Unknown [id number] 1981 Unknown [id number] [id number] Unknown [id number] Unknown [id number] [id number] Unknown [id number] Social History Date Type Detail Facility Start: 01-28-2019 Tobacco smoking stat [facility] Never smoked tobacco [facility] [employer] [facility] History of tobacco use Passive smoker [facility] [employer] [facility] Work Phone: Start: 01-28-2019 Tobacco use and exposure Smokeless tobacco non-user [facility] [employer] [facility] Work Phone: Start: 01-28-2019 Tobacco Comment Smoker present in [facility] [employer] [facility] Work Phone: Start: 2005 Sex Assigned At Not on file T [facility] [employer] [facility] Work Phone: Start: 11-23-2019 Gender identity Not on file [facility] [employer] [facility] Work Phone: Start: 11-23-2019 History of Social function [facility] [employer] Work Phone: Adolescent depressio n screening assessment 0 [facility] Work Phone: Progress note 03-03-2024 Note Date & Type Note Facility 03-03-2024 Note HNO ID: [id number] Author: RUTH MENJIVAR MD Service: ? 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 She states that [...] MG TABLET - IBUPROFEN 600 MG TABLET [facility] History of Present illness Narrative 07-17-2023 Carol [...] implemented: Yes documented in this encounter [facility] [employer] Work Phone: Evaluation note Note Date & Type Note Facility Evaluation note Diagnosis Counseling for hormone replacement therapy- Primary Need for prophylactic hormone replacement therapy (postmenopausal) documented in this encounter [facility] [employer] Work Phone: Evaluation note Note Date & Type Note Facility Evaluation note Diagnosis Gender dysphoria- Primary Goiter Goiter, unspecified documented in this encounter [facility] [employer] [facility] Work Phone: Summary Purpose Family History No Family History Records FoundNo Family History Records FoundNo Family History Records Found Advance Directives No Advanced Directives Records FoundNo Advanced Directives Records FoundNo Advanced Directives Records Found Reason for Referral Specialty Diagnoses / Procedures Referred By Ramila schmidt Referred To Contact Endocrinology Diagnoses Counseling for hormone replacement therapy Nanci Park [address] [address] [facility] END[facility] [address] [place] [address] Referral ID Status Reason Start Date Expiration Date V isits Requested Visits Authorized [id number] Authorized 06/19/2023 06/17/2024 3 3 Scheduling Instructions Please call the Endocrinology Clinic at [phone] to schedule an appointment if one was not made for you today. Question Answer Patient to be evaluated for: Hormones [10] Comments No prior visits in Endocrinology Specialty Diagnoses / Procedures Referred By Ramila schmidt Referred To Contact Psychiatry Diagnoses Gender dysphoria Carol Mcnamara MD [address] [place] [address] [facility] PSY ADULT GENERAL [address] [place] [address] Referral ID Status Reason Start Date Expiration Date V isits Requested Visits Authorized [id number] Authorized 07/17/2023 07/16/2024 3 3 Scheduling Instructions [...] Assessment locations are as follows: o [address] [facility] (walk-in available 8 a.m.-2 p.m, first come first served) o [address] [facility] (by appointment only) For quicker assistance, please consider utilizing our online scheduling tool at [email or web address]. We look forward to assisting you. Thank you for choosing [employer]. Question Answer Behavioral Health Service Options Counseling Comments Please utilize the [id number] Integrated Behavioral Health referral if initiating Psychology or Psychiatry services from a site that offers Integrated Behavioral Health. Please utilize the [id number], Addiction Referral Outpatient if requesting that this patient be evaluated for Substance Use Disorder (RABIA) reasons. Additional Source Comments INFORMATION SOURCE (unrecogn ized section and content) DATE CREATED AUTHOR 05/24/2021 [facility] [employer] [facility] DATE CREATED AUTHOR AUTHOR'S ORGANIZ ATION 01/10/2024 [facility] DATE CREATED AUTHOR AUTHOR'S ORGANIZ ATION 03/08/2024 [facility] Reason for Visit (unrecogniz ed section and content) Reason Onset Date Comments Referral to Specialist 06/23/2023 Care Coordination 06/23/2023 Reason Comments New patient, to establish relationship Specialty Diagnoses / Procedures Referred By Ramila schmidt Referred To Contact Endocrinology Diagnoses Counseling for hormone replacement therapy Nanci Park [address] [facility] [address] [place] [address] [facility] [address] [place], [place] [id number] Referral ID Status Reason Start Date Expiration Date V isits Requested Visits Authorized [id number] Authorized 06/19/2023 06/17/2024 3 3 FOR RECORDS [...] BE BASED ON THE PRIMARY CLINICAL RECORDS. [facility] [employer] [facility]. provides no warranty or guarantee of the accuracy or completeness of information in this document.
--- NOTE | 2024-11-29 22:52 | RAD_ITS ---
PROCEDURE: L/S SPINE MIN 4 VIEWS 11/29/2024 REASON FOR EXAM: PAIN TECHNIQUE: L/S SPINE MIN 4 VIEWS FINDINGS: No evidence of acute fracture or dislocation. No visualized pars defects. The intervertebral disc spaces are maintained. Vertebral body heights are maintained. Normal alignment. RAD/L/S Spine Min 4 Views IMPRESSION: No acute abnormalities. Reading Location: [id number]
--- NOTE | 2024-11-29 22:52 | RAD_ITS ---
PROCEDURE: L/S SPINE MIN 4 VIEWS 11/29/2024 REASON FOR EXAM: PAIN TECHNIQUE: L/S SPINE MIN 4 VIEWS FINDINGS: No evidence of acute fracture or dislocation. No visualized pars defects. The intervertebral disc spaces are maintained. Vertebral body heights are maintained. Normal alignment. RAD/L/S Spine Min 4 Views IMPRESSION: No acute abnormalities. Reading Location: [id number]
--- NOTE | 2024-11-29 23:19 | EDS_ITS ---
HPI History of Present Illness Chief Complaint: Abd Pain Informant: patient and spouse/S.O. Narrative Narrative: Patient is a 19-year-old female who reports no significant past medical history. She states on Friday night she noticed some pain in the midline of her low back. She states it was not significant however and she was able to go to sleep. She reports that she then awoke around 5 or 6 in the morning with increased pain in the low back region. She states that it hurts worse with motion and will sometimes radiate towards her rectum. She states there is been no recent trauma or excessive activity. She denies any concern for or STD. She states has been no dysuria or hematuria. She denies any use of IV drugs. She denies any loss of bowel or bladder control. She states she is taken yfgn-cah-poofnmg medications throughout the day with minimal symptom improvement and secondary to this comes in for evaluation. [facility] Medical History (Updated 11/29/24 @ 23:[address] Masood Palencia, DO) Physical exam, pre-employment Home Medications ?Medication ?Instructions ?Recorded ?Last Taken ?Type methocarbamol 500 mg tablet 1,000 mg (2 x 500 mg) PO 4 X/DAY 11/29/24 Unknown Rx PRN Muscle pain/spasm #56 tabs oxycodone-acetaminophen 5 mg-325 1 tab PO Q6H PRN pain 3 days #12 11/29/24 Unknown Rx mg tablet (Endocet) tabs Allergy/AdvReac Type Severity Reaction Status Date / Time No Known Allergies Allergy Verified 11/29/24 21:45 Social History Smoking Status: Never smoker [facility] ED Constitutional Constitutional ED: Denies chills or fever(s) ENT ENT ED: Denies sore throat Cardiovascular Cardiovascular: Denies chest pain Respiratory/Chest Respiratory/Chest: Denies cough or dyspnea Gastrointestinal Gastrointestinal: Denies abdominal pain, diarrhea, nausea or vomiting Genitourinary Genitourinary ED: Denies dysuria, hematuria or urinary frequency Musculoskeletal Musculoskeletal: Reports back pain Integumentary Denies rash Neurologic Neurologic: Denies headache(s) or paresthesias Hematologic/Lymphatic Hematologic/Lymphatic: Denies easy bleeding or easy bruising EXAM Physical Exam Const Vital Signs: 11/29/24 21:43 11/29/24 23:28 Temperature 98.1 F 98 F Temperature Source Oral Pulse Rate 77 70 Respiratory Rate 18 18 Blood Pressure 146/96 H 144/84 H Blood Pressure Mean 112 104 Pulse Ox 98 100 Positive well nourished and well developed General Appearance ED: well developed; Negative for pallor HEENT HEENT Narrative: Normocephalic atraumatic Eyes PERRL and EOMs intact bilaterally General Eye ED: Negative for scleral icterus Neck supple Resp normal respiratory effort and clear to auscultation bilaterally Cardio regular rate and regular rhythm Back/Spine no CVA tenderness Back/Spine Narrative: No bony deformity or step-off of the cervical thoracic or lumbar spine. Patient does have lower lumbar midline pain with palpation. No saddle anesthesia. Negative straight leg raise. No clonus or Babinski. Patellar reflexes are +2-4 bilaterally No overlying soft tissue changes to suggest trauma or infection Back pain does worsen with palpation as well as rotation and sidebending. Extremity normal to inspection Extremity Narrative: No asymmetric edema no pitting edema negative Homans' sign bilaterally Neuro oriented x3, CN's II-XII intact bilaterally and no sensory deficits noted Sensorium / Orientation: alert Motor Exam: strength 5/5 throughout Psych mental status grossly normal Skin no rashes or lesions noted and no wounds General Skin Exam: Negative for jaundice or pallor MDM MDM MDM Narrative Medical decision making narrative: Patient arrived to the ER hypertensive otherwise with stable vitals. Reportedly she told nursing triage that she had lower abdominal pain and vaginal discharge. She denied the symptoms for me and reported low back pain radiating towards her rectum. Therefore this time as patient is denying discharge bleeding or concern for STD or to me I do not feel the need for pelvic exam. As her pain is solely located in the low back and radiating towards the buttocks/rectum and not the abdomen I have low concern for kidney stone UTI or pyelonephritis. Patient denies any recent surgical procedures or injections going against discitis or osteomyelitis. She denies IV drug use or loss of bowel or bladder control going against cauda equina syndrome or epidural abscess. Therefore this time I feel pain is most likely musculoskeletal but as she has midline pain there is concern for compression fracture versus generative disc disease versus spondylolisthesis. X-ray was obtained which revealed no acute finding. After receiving medication in the ER she did have improvement of symptoms. Therefore this time as history and exam and imaging indicate this is most likely musculoskeletal I will simply place patient on medication and she is safe for discharge. History & Record Review Discussion w/independent historian: Patient and Significant other Radiography Diagnostic Testing: Clinical Impression(s) from Imaging Studies Lumbar Spine X-Ray 11/29/24 22:52 IMPRESSION: No acute abnormalities. Reading Location: [facility] X-ray of the lumbosacral spine as interpreted by the emergency medicine physician reveals no acute compression fracture or spondylolisthesis Discharge Plan Triage Chief Complaint: Abd Pain ED Provider: Masood Palencia Dx/Rx/DC Orders Clinical Impression: Lumbosacral strain Instructions: Understanding Lumbosacral Strain, Understanding Sacroiliac Strain Prescriptions: New oxycodone-acetaminophen [Endocet] 5-325 mg tablet 1 tab PO Q6H PRN (Reason: pain) 3 Days Qty: 12 0RF methocarbamol 500 mg tablet 1,000 mg PO 4X/DAY PRN (Reason: Muscle pain/spasm) Qty: 56 0RF Stand Alone Forms: ED Work / School Excuse Primary Care Provider: Care Physician,No Primary Referrals: Jai Rachel MD [Med Staff - Active Staff] - Care Physician,No Primary [Primary Care Provider] - Activity Restrictions/Additional Instructions: Your x-ray did not show any sign bony abnormality or joint space narrowing. Therefore I feel your symptoms are most likely related to nerve impingement from superficial muscle tension and spasm. Please stretch and heat to low back to help reduce pain and speed healing. Take the prescribed medications as directed to help as well. If you have any further concerns or worsening of symptoms please return for repeat evaluation Print Language: Greenlandic Disposition Disposition: Home, Self Care Discharge Date/Time: 11/29/24 23:28
[2024-11-29 23:28] VITALS: BP 144/84; PULSE 70; RESP 18; TEMP 36.6; O2SAT 100
== END 2024-11-29 23:28 | disposition home or self-care (01) ==
PROVIDERS: Emergency Provider Emergency Medicine; Visit Provider Emergency Medicine
DX: S39.012A Strain of muscle, fascia and tendon of lower back, initial encounter (principal); N89.8 Other specified noninflammatory disorders of vagina; X58.XXXA Exposure to other specified factors, initial encounter
CPT/HCPCS: 72110; 96372; 99283

== ENCOUNTER 2024-12-03 15:52 | Inpatient (IN) | payer OTHER, SELFPAY ==
[2024-12-03] VITALS (7 sets, daily range): BP systolic 127–142; BP diastolic 74–92; PULSE 66–108; RESP 14–19; TEMP 36.6–36.9; O2SAT 97–100; BMI 39.2; BMI 38.7
--- NOTE | 2024-12-03 17:01 | EDS_ITS ---
HPI <NAEEM Archuleta - Last Filed: 12/03/24 21:58> History of Present Illness Chief Complaint: Abd Pain Narrative Narrative: 19-year-old female with no past medical history presents with a few days of generalized abdominal pain and midline lumbar pain. Patient was seen here on 11/29 and had workup for the back pain with negative lumbar x-rays. She was prescribed oxycodone and methocarbamol which have somewhat helped the pain. She reports she continues to have generalized abdominal pain with occasional nausea and vomiting. No hematemesis. Last bowel movement was a few days ago. No urinary symptoms. No history of abdominal surgeries. She drinks socially about twice a year but nothing recent. Denies smoking. PFS <NAEEM Archuleta - Last Filed: 12/03/24 21:58> [facility], [facility] Medical History (Updated 12/03/24 @ 23:45 by Noemí March) Depression Anxiety Physical exam, pre-employment Home Medications ?Medication ?Instructions ?Recorded ?Last Taken ?Type methocarbamol 500 mg tablet 1,000 mg (2 x 500 mg) PO 4 X/DAY 11/29/24 Unknown Rx PRN Muscle pain/spasm #56 tabs oxycodone-acetaminophen 5 mg-325 1 tab PO Q6H PRN pain 3 days #12 11/29/24 Unknown Rx mg tablet (Endocet) tabs Allergy/AdvReac Type Severity Reaction Status Date / Time No Known Allergies Allergy Verified 11/29/24 21:45 Social History Smoking Status: Former smoker ROS <NAEEM Archuleta - Last Filed: 12/03/24 21:58> ROS ED ROS Narrative Constitutional: Negative for fever, chills, malaise. CVS: Negative for chest pain. Respiratory: Negative for shortness of breath.. GI: Positive for abdominal pain, nausea, vomiting. : Negative for dysuria, hematuria or frequency. EXAM <NAEEM Archuleta - Last Filed: 12/03/24 21:58> Physical Exam Narrative Exam Narrative: CONST: Patient sitting in no acute distress. EYES: Normal inspection. NECK: Normal inspection. RESP: No respiratory distress, CTAB. CVS: Regular rate and rhythm, no murmur, no gallop. ABD: Soft with generalized tenderness, no guarding or rebound, nondistended, no hepatosplenomegaly. Back: Normal inspection, no midline or CVA tenderness. SKIN: Color normal, no rash, warm, dry, intact. EXTREMITIES: Normal appearance, no pedal edema. NEURO: Alert and answering questions appropriately. PSYCH: Normal affect. Const Vital Signs: 12/03/24 15:53 12/03/24 18:06 12/03/24 20:00 Temperature 97.9 F Temperature Source Oral Pulse Rate 108 H 66 71 Respiratory Rate 18 18 18 Blood Pressure 141/91 H 134/76 H 142/92 H Blood Pressure Mean 107 95 108 Pulse Ox 99 100 99 Oxygen Delivery Method Room Air Room Air Room Air <Dr. Ellen Bueno MD - Last Filed: 12/04/24 00:47> Physical Exam Const Vital Signs: 12/03/24 15:53 12/03/24 18:06 12/03/24 20:00 Temperature 97.9 F Temperature Source Oral Pulse Rate 108 H 66 71 Respiratory Rate 18 18 18 Blood Pressure 141/91 H 134/76 H 142/92 H Blood Pressure Mean 107 95 108 Pulse Ox 99 100 99 Oxygen Delivery Method Room Air Room Air Room Air MDM <NAEEM Archuleta - Last Filed: 12/03/24 21:58> [facility] MDM Narrative Medical decision making narrative: Differential includes but not limited to cholecystitis, appendicitis, kidney stone, UTI Consults: General surgery, GI, hospitalist 19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 Seen a couple days ago and given oxycodone and methocarbamol for the back pain male presenting with more so the abdominal complaints. Patient appears well and nontoxic. HR is 108 with otherwise stable vital signs. Abdomen is soft with generalized tenderness without peritoneal signs. There is no tenderness of the flank or back. CBC is within normal limits. Chemistry shows elevated liver enzymes with total bilirubin of 2.74, AST 159, ALT 285, alkaline phosphatase 194, and normal lipase at 17. is negative. Due to the lab abnormalities I ordered a CT scan and gallbladder ultrasound. Ultrasound shows gallbladder distention with wall thickening and stones with a mildly dilated CBD at 1 cm. The report states this is likely acute cholecystitis but with no white count and elevated liver enzymes this is more consistent with choledocholithiasis. I consulted Dr. Marshall in general surgery who recommended consulting GI for ERCP tomorrow and then he can remove her gallbladder at a later date. I consulted Dr. White and he is available tomorrow for ERCP. Patient was covered with Zosyn and I will discuss with the hospitalist for admission. History & Record Review Discussion w/independent historian: Patient and Friend Additional record(s) reviewed:: Prior ED visit Lab Data Attestation: I reviewed the patient's lab results. Labs: Laboratory Results - last 24 hr 12/03/24 12/03/24 17:14 17:35 WBC 6.6 RBC 4.61 Hgb 13.0 Hct 40.1 MCV 87.0 MCH 28.2 MCHC 32.4 RDW Std Deviation 44.7 H RDW Coeff of Keith 14.0 Plt Count 268 MPV 10.1 Immature Gran % (Auto) 0.200 Neut % (Auto) 66.8 Lymph % (Auto) 20.5 [place] % (Auto) 9.5 Eos % (Auto) 2.4 Baso % (Auto) 0.6 Absolute Neuts (auto) 4.4 Absolute Lymphs (auto) 1.34 Nucleated RBC % 0 Sodium 133 Potassium 4.4 Chloride 104 Carbon Dioxide 16.9 L Anion Gap 13 BUN 11 Creatinine 0.71 Estim Creat Clear Calc 169.90 Est GFR (MDRD) Non-Af 125 BUN/Creatinine Ratio 14.8 Glucose 93 Calcium 9.0 Magnesium 2.0 Total Bilirubin 2.74 H AST 159 H ALT 285 H Alkaline Phosphatase 194 H Total Protein 6.9 Albumin 3.4 L Globulin 3.5 Albumin/Globulin Ratio 1.0 Lipase 17 Serum , Qual NEGATIVE Urine Color Lyn Urine Clarity Clear Urine pH 6.5 Ur Specific [place] 1.015 Urine Protein 30 H Urine Glucose (UA) Normal Urine Ketones Negative Urine Occult Blood Negative Urine Nitrite Negative Urine Bilirubin 3 H Urine Urobilinogen 4 H Ur Leukocyte Esterase 25 H Urine RBC 0 SEEN Urine WBC 0 SEEN Ur Squamous Epith Cells 0-5 SEEN Urine Bacteria 0 SEEN Urine Mucus 0 SEEN Radiography Diagnostic Testing: Clinical Impression(s) from Imaging Studies Abdomen Ultrasound 12/03/24 18:09 IMPRESSION: 1. Cholelithiasis with gallbladder distention and mild generalized wall thickening/edema. Mildly dilated common bile duct measuring 1 cm. Findings likely indicate acute cholecystitis. 2. Mild diffuse hepatic steatosis. Reading Location: [facility] Abdomen/Pelvis CT 12/03/24 18:17 IMPRESSION: 1. Cholelithiasis with CT evidence of acute cholecystitis in correlation with findings seen on ultrasound. 2. Diffuse bladder wall thickening may represent cystitis, please correlate with urinalysis. Reading [facility] <Dr. 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 Seen a couple days ago and given oxycodone and methocarbamol for the back pain male presenting with more so the abdominal complaints. Patient appears well and nontoxic. HR is 108 with otherwise stable vital signs. Abdomen is soft with generalized tenderness without peritoneal signs. There is no tenderness of the flank or back. CBC is within normal limits. Chemistry shows elevated liver enzymes with total bilirubin of 2.74, AST 159, ALT 285, alkaline phosphatase 194, and normal lipase at 17. is negative. Due to the lab abnormalities I ordered a CT scan and gallbladder ultrasound. Ultrasound shows gallbladder distention with wall thickening and stones with a mildly dilated CBD at 1 cm. The report states this is likely acute cholecystitis but with no white count and elevated liver enzymes this is more consistent with choledocholithiasis. I consulted Dr. Marshall in general surgery who recommended consulting GI for ERCP tomorrow and then he can remove her gallbladder at a later date. I consulted Dr. White and he is available tomorrow for ERCP. Patient was covered with Zosyn and I will discuss with the hospitalist for admission. Patient seen and evaluated with KALINA. I personally interviewed and examined the patient. I was involved in all aspects of patient's orders, interpretation of results, and treatment. In brief patient came in for abdominal pain, nausea and vomiting. Very unremarkable abdominal exam, labs were obtained. Elevated total bili, AST, ALT and alk phos. CT abdomen and gallbladder ultrasound were obtained which shows findings of possible cholecystitis. With the elevated total bili and liver enzymes, most likely choledocholithiasis. Did speak with general surgery as above however they recommended speaking with GI and admitting hospitalist. Clinical impression Choledocholithiasis Abdominal pain Lab Data Labs: Laboratory Results - last 24 hr 12/03/24 12/03/24 17:14 17:35 WBC 6.6 RBC 4.61 Hgb 13.0 Hct 40.1 MCV 87.0 MCH 28.2 MCHC 32.4 RDW Std Deviation 44.7 H RDW Coeff of Keith 14.0 Plt Count 268 MPV 10.1 Immature Gran % (Auto) 0.200 Neut % (Auto) 66.8 Lymph % (Auto) 20.5 [place] % (Auto) 9.5 Eos % (Auto) 2.4 Baso % (Auto) 0.6 Absolute Neuts (auto) 4.4 Absolute Lymphs (auto) 1.34 Nucleated RBC % 0 Sodium 133 Potassium 4.4 Chloride 104 Carbon Dioxide 16.9 L Anion Gap 13 BUN 11 Creatinine 0.71 Estim Creat Clear Calc 169.90 Est GFR (MDRD) Non-Af 125 BUN/Creatinine Ratio 14.8 Glucose 93 Calcium 9.0 Magnesium 2.0 Total Bilirubin 2.74 H AST 159 H ALT 285 H Alkaline Phosphatase 194 H Total Protein 6.9 Albumin 3.4 L Globulin 3.5 Albumin/Globulin Ratio 1.0 Lipase 17 Serum , Qual NEGATIVE Urine Color Lyn Urine Clarity Clear Urine pH 6.5 Ur Specific [place] 1.015 Urine Protein 30 H Urine Glucose (UA) Normal Urine Ketones Negative Urine Occult Blood Negative Urine Nitrite Negative Urine Bilirubin 3 H Urine Urobilinogen 4 H Ur Leukocyte Esterase 25 H Urine RBC 0 SEEN Urine WBC 0 SEEN Ur Squamous Epith Cells 0-5 SEEN Urine Bacteria 0 SEEN Urine Mucus 0 SEEN Radiography Diagnostic Testing: Clinical Impression(s) from Imaging Studies Abdomen Ultrasound 12/03/24 18:09 IMPRESSION: 1. Cholelithiasis with gallbladder distention and mild generalized wall thickening/edema. Mildly dilated common bile duct measuring 1 cm. Findings likely indicate acute cholecystitis. 2. Mild diffuse hepatic steatosis. Reading Location: [facility] Abdomen/Pelvis CT 12/03/24 18:17 IMPRESSION: 1. Cholelithiasis with CT evidence of acute cholecystitis in correlation with findings seen on ultrasound. 2. Diffuse bladder wall thickening may represent cystitis, please correlate with urinalysis. Reading Location: [facility] Discharge Plan Dx/Rx/DC Orders Clinical Impression: Choledocholithiasis, Transaminitis, Abdominal pain Disposition Disposition: Acute Care Hospital [facility] Discharge Date/Time: 12/03/24 23:45
[2024-12-03 17:36] LABS: Hematocrit 40.1 % (37-47); Hemoglobin 13.0 g/dL (12.0-15.0); Immature Granulocytes Count 0.010 X10^3/uL (0.0-0.0); Mean Corp Hgb Conc 32.4 g/dL (32-36); Mean Corpuscular Volume 87.0 fL (81-99); Mean Platelet Vol. 10.1 fl (6.2-12.0); NRBC Flagged by Analyzer 0 % (0-5); Platelet Count 268 K/mm3 (150-450); RBC Distribution Width CV 14.0 % (11.6-14.6); RBC Distribution Width SD 44.7 fl (35.1-43.9); Red Blood Count 4.61 M/mm3 (4.2-5.4); White Blood Count 6.6 K/mm3 (4.4-11.0)
[2024-12-03 17:39] LABS: Mucous, Urine 0 SEEN /hpf (<or=2+); Red Blood Cells-Urine 0 SEEN /hpf (0-5)
[2024-12-03 17:48] LABS: Internal QC Validated? YES +Cl - CLEAR BKGD; Pregnancy, Serum, hCG Quali. NEGATIVE Negative; Record Kit Lot#, Serum Preg. 962302
[2024-12-03 17:59] LABS: Lipase 17 U/L (13-75)
[2024-12-03 18:01] LABS: AST(SGOT) 159 U/L (<=31); Alanine Aminotransfer ALT/SGPT 285 U/L (<=34); Albumin, Serum 3.4 g/dL (3.5-5.0); Alkaline Phosphatase 194 U/L (35-104); Anion Gap 13 (5-15); BUN 11 mg/dL (4-19); BUN/Creat Ratio 14.8 RATIO (10-20); Calcium,Total 9.0 mg/dL (7.6-11.0); Carbon Dioxide 16.9 mmol/L (21.0-32.0); Chloride 104 mmol/L (98-108); Estimated Creatinine Clearance 169.90 ml/min (50-250); Globulin 3.5 g/dL (2.2-4.2); Glucose 93 mg/dL (70-99); Potassium 4.4 mmol/L (3.3-5.1)
--- NOTE | 2024-12-03 18:09 | US_ITS ---
PROCEDURE: ULTRASOUND ABDOMEN LIMITED 12/03/2024 REASON FOR EXAM: RUQ PAIN TECHNIQUE: Right upper quadrant abdominal ultrasound utilizing 2D grayscale and color Doppler. COMPARISON: Abdominal CT from same day 12/03/2024. FINDINGS: Liver: Grossly normal in size. No discrete focal lesion. Mild diffuse increased parenchymal echogenicity compatible with fatty infiltration. Gallbladder: Gallbladder is distended with multiple shadowing echogenic gallstones. Mild circumferential gallbladder thickening/edema. No discrete pericholecystic fluid is seen. research technologist reports that no sonographic Allen's sign was elicited on this exam. Common bile duct: Dilated measuring up to roughly 1 cm in diameter. Pancreas: Visualized portions are sonographically unremarkable. Other: Visualized right kidney appears normal. No right upper quadrant ascites. US/Abdomen Limited IMPRESSION: 1. Cholelithiasis with gallbladder distention and mild generalized wall thicken ing/edema. Mildly dilated common bile duct measuring 1 cm. Findings likely indicate acute cholecystitis. 2. Mild diffuse hepatic steatosis. Reading Location: [id number]
--- NOTE | 2024-12-03 18:17 | CT_ITS ---
PROCEDURE: ABDOMEN/PELVIS W IV CONT ONLY 12/03/2024 REASON FOR EXAM: ABDOMINAL PAIN, NAUSEA, VOMITING TECHNIQUE: ABDOMEN/PELVIS W IV CONT ONLY Coronal and Sagittal reconstruction series were provided. CONTRAST: 100 cc of Isovue 370 intravenous contrast. One or more dose reduction techniques were used (e.g., Automated exposure control, adjustment of the mA and/or kV according to patient size, use of iterative reconstruction technique. RADIATION DOSE SUMMARY: CTDlvol: 30 mGy DLP: 1316 mGycm COMPARISON: Abdominal ultrasound 12/03/2024 FINDINGS: Lung bases: Unremarkable Liver: Normal-size. Mild diffuse hepatic steatosis. Mild intrahepatic bile duct dilatation. No mass. Gallbladder: Several calcified gallstones with mild gallbladder wall thickening and surrounding fluid. Mild dilatation of the common bile duct measuring up to 11 mm. Findings may suggest acute cholecystitis. No definite choledocholithiasis. Spleen: Normal size. Pancreas: Normal size without evidence of mass surrounding inflammation or ductal dilation. Adrenals: Unremarkable. Kidneys: Normal renal sizes. No hydronephrosis. Bladder: Diffuse bladder wall thickening may be due to underdistention or cystitis. Reproductive Organs: Normal uterine size and contour. Ovaries are unremarkable. Bowel: No bowel obstruction. Appendix: Normal. Lymph nodes: Unremarkable. Vasculature: The abdominal aorta and IVC are normal. Peritoneum / Retroperitoneum: No free fluid or air. Bones: Unremarkable. No acute fractures. CT/Abdomen/Pelvis W IV Cont ONLY IMPRESSION: 1. Cholelithiasis with CT evidence of acute cholecystitis in correlation with f indings seen on ultrasound. 2. Diffuse bladder wall thickening may represent cystitis, please correlate wit h urinalysis. Reading Location[facility]
[2024-12-03 18:24] LABS: Color, Urine Amber (Yellow); Glucose, Dipstick Normal (Normal); Ketone-Dipstick Negative (Negative); Leukocyte Esterase-Dipstick 25 /ul (Negative); Nitrite-Dipstick Negative (Negative); Occult Blood-Urine Negative /ul (Negative); Protein-Dipstick 30 mg/dl (Negative); Specific Gravity, Urine 1.015 (1.002-1.030)
[2024-12-03 18:32] LABS: Urine Bilirubin Dipstick 3 mg/dL (Negative)
[2024-12-03 18:34] LABS: Squamous Epithelial Cells - UA 0-5 SEEN /hpf (5-10)
[2024-12-03] MEDS: Piperacil/Tazobactam 4.5 GM in 0.9% Normal Saline (100mL MB+) 100 ML IV (21:58)
[2024-12-03] MEDS: DiphenhydrAMINE 50 MG/ML Syringe 25 MG IV (22:00)
--- NOTE | 2024-12-03 22:00 | HP.PCM.HOS_ITS ---
[facility] - General General Date of Admission: 12/03/24 Date of Service: 12/03/24 Chief Complaint: Abdominal Pain, Nausea and Vomiting. HPI Narrative SHERRI LOGAN, is a 19 F with a past medical history of obesity (class II); with BMI of 39.2 this admission and former tobacco abuse who presents to [facility] ER complaining of abdominal pain, nausea and vomiting. Ms. Logan reports her symptoms began approximately 4 days prior to admission with generalized abdominal pain that radiated into her lumbar region with visit to the ER here on November 29, 2024 when she underwent a back pain workup with negative lumbar x-rays. She was subsequently discharged on a combination of prn oxycodone and prn methocarbamol which she states did help alleviate her symptoms. Unfortunately, she then developed worsening abdominal pain with nausea and vomiting with bilious emesis with her last BM a few days ago so she decided to come back in for further evaluation and treatment. She denies associated fever, chills, runny nose, sore throat, ear pain, SOB, cough, diarrhea, dysuria, hematuria, headache or rash. In the ER she had a gallbladder ultrasound that revealed Cholelithiasis with gallbladder distention and mild generalized wall-thickening/edema with mildly dilated CBD measuring ~1 cm with findings indicating Acute Cholecystitis she then underwent CT scan of the abdomen and pelvis that revealed Cholelithiasis with CT evidence of Acute Cholecystitis in correlation with findings seen on ultrasound with corresponding laboratory evidence of Hyperbilirubinemia; with total bilirubin of 2.74 mg/dL and Transaminitis; with AST 159 U/L, ALT 285 U/L and alkaline phosphatase of 194 U/L suspicious for Choledocholithiasis with general surgeon on-call recommending GI consultation and ERCP in AM prior to potential cholecystectomy. She was then admitted to the general medical floor for ongoing care for a stay that is expected to extend beyond 2 midnights. COUNT INCLUDES THE [facility] Medical History (Updated 12/03/24 @ 23:45 by Noemí March) Depression Anxiety Physical exam, pre-employment Home Medications ?Medication ?Instructions ?Recorded ?Last Taken ?Type methocarbamol 500 mg tablet 1,000 mg (2 x 500 mg) PO 4 X/DAY 11/29/24 Unknown Rx PRN Muscle pain/spasm #56 tabs oxycodone-acetaminophen 5 mg-325 1 tab PO Q6H PRN pain 3 days #12 11/29/24 Unknown Rx mg tablet (Endocet) tabs Allergy/AdvReac Type Severity Reaction Status Date / Time No Known Allergies Allergy Verified 11/29/24 21:45 Social History Smoking Status: Former smoker ROS ROS Narrative Review of Systems: Constitutional: Patient denies fever or chills. Eyes: Patient denies changes in vision or discharge from eyes. ENT: Patient denies runny nose, sore throat or ear pain. Resp: Patient denies SOB or cough. CV: Patient denies chest pain, palpitations, heart racing or lower extremity edema. GI: Patient admits to generalized abdominal pain radiating into her back with nausea and vomiting as per HPI. : Patient denies dysuria or hematuria. MSK: Patient admits to back pain as per HPI. Skin: Patient denies rash, abscess, wounds or jaundice. Psych: Patient denies symptoms of uncontrolled depression or anxiety. Neuro: Patient denies headache, paresthesias or focal neurologic deficits. Allergy: Patient denies lip swelling, tongue swelling or urticaria. Hematology: Patient denies easy bleeding or easy bruisability. Endocrinology: Patient denies polyuria, polydipsia, polyphagia or heat/cold intolerance. 14 point ROS otherwise negative except for positives noted above in HPI. Vital Signs Vital Signs Vital Signs: 12/03/24 15:53 12/03/24 18:06 12/03/24 20:00 Temperature 97.9 F Temperature Source Oral Pulse Rate 108 H 66 71 Respiratory Rate 18 18 18 Blood Pressure 141/91 H 134/76 H 142/92 H Blood Pressure Mean 107 95 108 Pulse Ox 99 100 99 Oxygen Delivery Method Room Air Room Air Room Air Weight Weight: 258 lb Body Mass Index (BMI) 39.2 Physical Exam Const alert and oriented x3 Constitutional Narrative: Obese and nontoxic in appearance. General Appearance: cooperative HEENT normocephalic, head/scalp atraumatic, hearing grossly normal bilaterally and moist oral mucous membranes Eyes PERRL and EOMs intact bilaterally Neck no lymphadenopathy and supple Resp normal respiratory effort, no retractions, no use of accessory muscles and clear to auscultation bilaterally Cardio regular rate and regular rhythm GI normal to inspection, nondistended, normoactive bowel sounds, soft to palpation, non-tender and non-distended Extremity normal to inspection, full ROM and no clubbing, cyanosis or edema Skin Skin Narrative: Patient has no evidence of rah, abscess, wounds or jaundice. Neuro oriented x3, CN's II-XII intact bilaterally, moves all extremities and no focal motor deficits Sensorium / Orientation: awake, alert, oriented to person, oriented to place and oriented to time Speech: speech normal Psych affect normal Results Medical Records Data Attestation: I reviewed the patient's medical records Lab / Micro Data Attestation: I reviewed the patient's lab results. 12/03/24 17:14 12/03/24 17:14 Labs: Laboratory Results - last 24 hr 12/03/24 17:14: WBC 6.6, RBC 4.61, Hgb 13.0, Hct 40.1, MCV 87.0, MCH 28.2, MCHC 32.4, RDW Std Deviation 44.7 H, RDW Coeff of Keith 14.0, Plt Count 268, MPV 10.1, Immature Gran % (Auto) 0.200, Neut % (Auto) 66.8, Lymph % (Auto) 20.5, [place] % (Auto) 9.5, Eos % (Auto) 2.4, Baso % (Auto) 0.6, Absolute Neuts (auto) 4.4, Absolute Lymphs (auto) 1.34, Nucleated RBC % 0, Sodium 133, Potassium 4.4, Chloride 104, Carbon Dioxide 16.9 L, Anion Gap 13, BUN 11, Creatinine 0.71, Estim Creat Clear Calc 169.90, Est GFR (MDRD) Non-Af 125, BUN/Creatinine Ratio 14.8, Glucose 93, Calcium 9.0, Total Bilirubin 2.74 H, AST 159 H, ALT 285 H, A lkaline Phosphatase 194 H, Total Protein 6.9, Albumin 3.4 L, Globulin 3.5, Albumin/Globulin Ratio 1.0, Lipase 17, Serum , Qual NEGATIVE 12/03/24 17:35: Urine Color Lyn, Urine Clarity Clear, Urine pH 6.5, Ur Specific [place] 1.015, Urine Protein 30 H, Urine Glucose (UA) Normal, Urine Ketones Negative, Urine Occult Blood Negative, Urine Nitrite Negative, Urine Bilirubin 3 H, Urine Urobilinogen 4 H, Ur Leukocyte Esterase 25 H, Urine RBC 0 SEEN, Urine WBC 0 SEEN, Ur Squamous Epith Cells 0-5 SEEN, Urine Bacteria 0 SEEN, Urine Mucus 0 SEEN Imaging Radiology Impression Abdomen Ultrasound 12/03/24 18:09 IMPRESSION: 1. Cholelithiasis with gallbladder distention and mild generalized wall thickening/edema. Mildly dilated common bile duct measuring 1 cm. Findings likely indicate acute cholecystitis. 2. Mild diffuse hepatic steatosis. Reading Location: [facility] Abdomen/Pelvis CT 12/03/24 18:17 IMPRESSION: 1. Cholelithiasis with CT evidence of acute cholecystitis in correlation with findings seen on ultrasound. 2. Diffuse bladder wall thickening may represent cystitis, please correlate with urinalysis. Reading Location: [facility] Assessment & Plan Assessment/Plan (1) Acute cholecystitis: (2) Choledocholithiasis: (3) Hyperbilirubinemia: (4) Transaminitis: (5) Abdominal pain: QUALIFIERS: Abdominal location: generalized Qualified Code(s): R 10.84 - Generalized abdominal pain (6) Nausea and vomiting: QUALIFIERS: Vomiting type: bilious vomiting Qualified Code(s): R 11.14 - Bilious vomiting (7) Obesity (BMI 30-39.9): PLAN: Plan 1. Gallbladder ultrasound that revealed Cholelithiasis with gallbladder distention and mild generalized wall-thickening/edema with mildly dilated CBD measuring ~1cm with findings indicating Acute Cholecystitis she then underwent CT scan of the abdomen and pelvis that revealed Cholelithiasis with CT evidence of Acute Cholecystitis in correlation with findings seen on ultrasound in addition to suspected Choledocholithiasis - Admit to general medical floor. Keep strict NPO for impending ERCP. Start empiric IV piperacillin-tazobactam. Give pantoprazole 40 mg IV daily. Give ondansetron IV prn for nausea and vomiting. Give promethazine IM prn for breakthrough nausea. Give ketorolac IV prn for [id number] (level 1-5/10) pain or fever. Give morphine IV prn for severe (level 6-10/10) pain. General surgeon already on case. Finally, we will consult gastroenterology to see this patient on-rounds in the AM for further recommendations with help appreciated in advance. 2. Hyperbilirubinemia; with total bilirubin of 2.74 mg/dL and Transaminitis; with AST 159 U/L, ALT 285 U/L and alkaline phosphatase of 194 U/L due to #1 - Check CMP daily to follow trend. 3. Abdominal Pain with Nausea, Vomiting and bilious emesis attributable to #1 & #2 - We will follow pain regimen and scales outlined in #1. 4. Obesity (class II); with BMI of 39.2 this admission adding to the burden of disease outlined from #1 - #3 - Weight loss will be recommended. Check TSH. This complicates her case and may hamper recovery. 5. Former tobacco abuse - Noted. 6. DVT prophylaxis - SCD's only with impending ERCP. Total time: Approximately (but not less than) 75 minutes. Charges/Coding Visit Charges Inpatient E&M: 11859 Init Hosp L3
--- OUTSIDE RECORDS SUMMARY | 2024-12-03 22:26 | XMS RPT_ITS | CCD ---
Author Organization [facility] Care Team Providers Care Cinnamon Grinder Name Role Phone PATIENT, SELF Referring Unavailable JOSUE SAM Primary Care Unavailable PROVIDER, UNKNOWN Admitting Unavailable PROVIDER, UNKNOWN Attending Unavailable PROVIDER, UNKNOWN Attending Unavailable PATIENT, SELF Referring Unavailable JOSUE SAM Primary Care Unavailable PROVIDER, UNKNOWN Admitting Unavailable JOSUE SAM Primary Care Unavailable RUTH MENJIVAR Attending Unavaila ble Unavailable Primary Care Provider Unavailserafin e Care Physician, No Primary Primary Care Provider Unavailable Dr. Masood Palencia DO Emergency Provider [phone] BALDEMAR AMIN Admitting Unavailable BALDEMAR AMIN Attending Unavailable BALDEMAR AMIN Primary Care Unavailable Masood Palencia Attending Unavailable Care Physician, No Primary Primary Care Unava ilable Medications Current Medications Medication Drug Class(es) Dates Sig (Normalized) Sig (Original) acetaminophen 325 mg / oxyCODONE hydrochloride 5 mg oral tablet (1 source) Opioid Agonist Start: 11-29-2024 take 1 tablet by mouth every six hours as needed for pain Oxycodone-Acetamino phen (Endocet) 5-325 mg tablet Active 1 {tbl} PO EVERY 6 HOURS as needed for pain 12 3 0 November 29, 2024 Lumbosacral strain Strain of muscle, fascia and tendon of lower back, initial encounter ethinyl estradiol 0.035 mg / norgestimate 0.25 mg oral tablet (3 sources) Progestin, Estrogen Start: 11-23-2019 norgestimate-ethiny l estradiol (PRAVIFEM- ORTHO/CYCLEN) 0.25-35 MG-MCG tablet Take 1 Tablet by mouth daily. 3 Package 3 11/23/2019 Active methocarbamol 500 mg oral tablet (1 source) Muscle Relaxant Start: 11-29-2024 take 2 tablets by mouth four times daily as needed for pain Methocarbamol 500 mg tablet Active 1000 mg PO 4 TIMES DAILY as needed for Muscle pain/spasm 56 0 November 29, 2024 11:20pm Problems Active Problems Problem Classification Problem Date Documented Da te Episodic/Chronic Administrative/social admission (1 source) Patient encounter status; Translations: [Encounter for pre-employment examination] 12-01-2023 Episodic Anxiety disorders (3 sources) Anxiety state, [...] [Acute pharyngitis, unspecified etiology] Onset: 03-03-2024 Episodic Sprains and strains (2 sources) Lumbosacral strain; Translations: [Strain of muscle, fascia and tendon of lower back, initial encounter] Onset: 11-30-2024 11-29-2024 Episodic Thyroid disorders (1 source) Goiter, unspecified 07-17-2023 Chronic Past or Other Problems Problem Classification Problem Date Documented Da te Episodic/Chronic Headache; including migraine (3 sources) Headache Onset: 01-28-2019 01-28-2019 Episodic Menopausal disorders (1 source) Hormone replacement therapy (postmenopausal) 06-17-2023 Episodic Results Test Name Value Interpretation Reference Range Facility ED MED ADMINISTRATION DETAIL on 11-29-2024 ED MED ADMINISTRATION DETAIL Chief Power Dispatcher - SHERRI LOGAN, : 2005, , Medication Administration Record [address] [address] [id number] 11/29/2024 Patient: SHERRI LOGAN Sex: Female : 2005 Age: 19y Medication Ordered Medication Administration Date/Time 1 of 1 [facility] ED NURSES CLINICAL NOTEon ED NURSES CLINICAL NOTE Nurse Narrative - SHERRI LOGAN, : 2005, , Nurse Clinical Narrative [address] [address] [id number] 11/29/2024 17:53:00 Patient: SHERRI LOGAN Sex: Female : 2005 Age: 19y Disposition: Left W/O Being Seen Disposition Decision Time: 20:50 11/29/2024 Departure Time: 20:50 11/29/2024 DISPOSITION / DISCHARGE Departure time: 20:50 11/29/2024. The patient left the Emergency Department before triage. The patient appears to be alert, oriented x4, coherent and in no acute distress. The patient notified staff prior to leaving the department and stated is leaving due to the long waiting time. Prior to leaving, the patient was advised to stay for completion of treatment. The patient left the Emergency Department ambulatory and via private vehicle. -- 21:42 11/29/24 EDT Yuly Guerrero R.N. 20:50 11/29/24. Condition at departure: stable. -- 21:43 11/29/24 EDT Yuly Guerrero R.N. (Electronically signed by Yuly Guerrero R.N. 11/29/24 21:43:37 EDT) Generated by [facility] 1 of 1 [facility] ED ORDER SHEET (CPOE ONLY)on 11-29-2024 ED ORDER SHEET (CPOE ONLY) Order Sheet - SHERRI LOGAN, : 2005, , Order Sheet [address] [address] [id number] 11/29/2024 Patient: SHERRI LOGAN Sex: Female : 2005 Age: 19y MEDICATION/IV/DRIP/FL UID ORDERS Order Description Priority Entered Acknowledged Completed LAB ORDERS Order Description Priority Entered Acknowledged Collected Completed DIAGNOSTIC STUDY ORDERS Order Description Priority Entered Acknowledged Completed STAFF ORDERS Order Description Priority Entered Acknowledged Collected Completed 1 of 1 [facility] ED SUPER BILLon 11-29-2024 ED SUPER BILL [facility] - SHERRI LOGAN, : 2005, , [address] [address] [id number] 11/29/2024 Patient: SHERRI LOGAN Sex: Female : 2005 Age: 19y Item Professional Category Description Facility Code Code Quantity Fee Total Grand Total $0.00 [address] [facility] ED VISIT SUMMARYon ED VISIT SUMMARY Visit Overview - SHERRI LOGAN, : 2005, , Visit [address] [address] [id number] 11/29/2024 Patient: SHERRI LOGAN Sex: Female : 2005 Age: 19y 11/29/2024 09:43 PM EDT ED Arrival:17:53 11/29/2024 EDT Status: Recent Travel: Language:eng Adv Directive: Isolation Status: Ethnicity:N Fall Risk: Infectious Disease Exposure: Measurements: Self-Harm Status: Sepsis Screen: Chief Complaint: ALLERGIES HOME MEDICATIONS PAST MEDICAL HISTORY / PROBLEMS PAST SURGICAL HISTORY SOCIAL HISTORY ED COURSE MEDICATIONS GIVEN IN EMERGENCY DEPARTMENT IV SITE INFORMATION 1 of 2 Visit Overview - SHERRI LOGAN, : 2005, , INTAKE OUTPUT REASSESMENT (most recent) VITAL SIGNS PROCEDURES NURSING INTERVENTIONS LABS / STUDIES CLINICAL IMPRESSION [address] [facility] ED VITALS FLOW SHEETon 11-29 ED VITALS FLOW SHEET Vitals - SHERRI LOGAN, : 2005, , Vital Sign Flow Sheet [facility] [address] [place] [address] [id number] 11/29/2024 Patient: SHERRI LOGAN Sex: Female : 2005 Age: 19y 1 of 1 [facility] Emergency Department Summary on 11-29-2024 Emergency Department Summary [facility] Medical Records Department [address] [address] Emergency Department Summary 11/29/24 MR#: [id number] Acct: [id number] Name: SHERRI LOGAN Rep #: [id number] : 2005 19 From: Masood Palencia DO PCP: Care Physician,No Primary Status:DEP ER Location: ED HPI History of Present Illness Chief Complaint: Abd Pain Informant: patient and spouse/S.O. Narrative Narrative: Patient is a 19-year-old female who reports no significant past medical history. She states on Friday night she noticed some pain in the midline of her low back. She states it was not significant however and she was able to go to sleep. She reports that she then awoke around 5 or 6 in the morning with increased pain in the low back region. She states that it hurts worse with motion and will sometimes radiate towards her rectum. She states there is been no recent trauma or excessive activity. She denies any concern for or STD. She states has been no dysuria or hematuria. She denies any use of IV drugs. She denies any loss of bowel or bladder control. She states she is taken [id number] medications throughout the day with minimal symptom improvement and secondary to this comes in for evaluation. [facility] Medical History (Updated 11/29/24 @ 23:[address] Masood Palencia DO) Physical exam, pre-employment Home Medications ???Medication ???Instructions ???Recorded ???Last Taken ???Type methocarbamol 500 mg tablet 1,000 mg (2 x 500 mg) PO 4X/DAY Unknown Rx PRN Muscle pain/spasm #56 tabs oxycodone-acetaminoph en 5 mg-325 1 tab PO Q6H PRN pain 3 days #12 0 11/29/24 Unknown Rx mg tablet (Endocet) tabs Allergy/AdvReac Type Severity Reaction Status Date / Time No Known Allergies Allergy Verified 11/29/24 21:45 Social History Smoking Status: Never smoker ROS ROS ED Constitutional Constitutional ED: Denies chills or fever(s) ENT ENT ED: Denies sore throat Cardiovascular Cardiovascular: Denies chest pain Respiratory/Chest Respiratory/Chest: Denies cough or dyspnea Gastrointestinal Gastrointestinal: Denies abdominal pain, diarrhea, nausea or vomiting Genitourinary Genitourinary ED: Denies dysuria, hematuria or urinary frequency Musculoskeletal Musculoskeletal: Reports back pain Integumentary Denies rash Neurologic Neurologic: Denies headache(s) or paresthesias Hematologic/Lymphatic Hematologic/Lymphatic : Denies easy bleeding or easy bruising EXAM Physical Exam Const Vital Signs: 11/29/24 21:43 11/29/24 23:28 Temperature 98.1 F 98 F Temperature Source Oral Pulse Rate 77 70 Respiratory Rate 18 18 Blood Pressure 146/96 H 144/84 H Blood Pressure Mean 112 104 Pulse Ox 98 100 Positive well nourished and well developed General Appearance ED: well developed; Negative for pallor HEENT HEENT Narrative: Normocephalic atraumatic Eyes PERRL and EOMs intact bilaterally General Eye ED: Negative for scleral icterus Neck supple Resp normal respiratory effort and clear to auscultation bilaterally Cardio regular rate and regular rhythm Back/Spine no CVA tenderness Back/Spine Narrative: No bony deformity or step-off of the cervical thoracic or lumbar spine. Patient does have lower lumbar midline pain with palpation. No saddle anesthesia. Negative straight leg raise. No clonus or Babinski. Patellar reflexes are +2-4 bilaterally No overlying soft tissue changes to suggest trauma or infection Back pain does worsen with palpation as well as rotation and sidebending. Extremity normal to inspection Extremity Narrative: No asymmetric edema no pitting edema negative Homans' sign bilaterally Neuro oriented x3, CN's II-XII intact bilaterally and no sensory deficits noted Sensorium / Orientation: alert Motor Exam: strength 5/5 throughout Psych mental status grossly normal Skin no rashes or lesions noted and no wounds General Skin Exam: Negative for jaundice or pallor MDM MDM MDM Narrative Medical decision making narrative: Patient arrived to the ER hypertensive otherwise with stable vitals. Reportedly she told nursing triage that she had lower abdominal pain and vaginal discharge. She denied the symptoms for me and reported low back pain radiating towards her rectum. Therefore this time as patient is denying discharge bleeding or concern for STD or to me I do not feel the need for pelvic exam. As her pain is solely located in the low back and radiating towards the buttocks/rectum and not the abdomen I have low concern for kidney stone UTI or pyelonephritis. Patient denies any recent surgical procedures or injections going against discitis or osteomyelitis. She denies IV drug use or loss of bowel or bladder control going against cauda equina syndrom (more content not included)... Normal [facility] L/S Spine Min 4 Viewson 11-19 L/S Spine Min 4 Views [facility] Imaging Services [address] [place], [place] [address] L/S Spine Min 4 Views MR#: [id number] Acct: [id number] Name: SHERRI LOGAN Rep #: [id number] : 2005 F 19 From: Jean-Pierre Alexis MD PCP: Care Physician,No Primary Status: REG ER Study: L/S Spine Min 4 Views Date of Exam: 11/29/24 Exam# [id number] Ordering Dr: Masood Palencia DO PROCEDURE: L/S SPINE MIN 4 VIEWS 11/29/2024 REASON FOR EXAM: PAIN TECHNIQUE: L/S SPINE MIN 4 VIEWS FINDINGS: No evidence of acute fracture or dislocation. No visualized pars defects. The intervertebral disc spaces are maintained. Vertebral body heights are maintained. Normal alignment. RAD/L/S Spine Min 4 Views IMPRESSION: No acute abnormalities. Reading Location: [facility] CC: Masood Palencia DO; No Primary Care Physician Cosmetic Sales Assistant: Signed Normal [facility] Tawana 03-04-2024 [facility] Telephone ([facility] SHERRI LOGAN ([id number]) 3 F Date Time Provider Department 03/04/24 RUTH MENJIVAR During your visit today, we recorded the [...] Encounter Status:Closed by ADINA CONTRERAS on 03/04/24 [facility] CNPN Telephone ([facility]) SHERRI LOGAN ([id number]) [birth year] F Date Time Provider Department 03/04/24 RUTH MENJIVAR During your visit today, we recorded the following information about you: Ruth Menjivar MD 03/04/2024 4:30 PM Signed Please inform patient amoxicillin and ibuprofen sent to designated pharmacy. Savita Martinez LPN 03/04/2024 6:57 PM Signed Patient notified prescriptions have been sent to [facility] per patient request. Patient verbalized understanding. 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 She states that [...] STREP RFLX TO PCR [SQSTAPCR] Order #: [id number] FUTURE (more content not included)... Normal [facility] RAPID GROUP A STREP RFLX TO PCRon 03-03-2024 S. pyogenes Ag Ql (Throat) Negative Normal Negative Group A Strep Screen [facility] Comment on above: Order Comment: Speci men Type: SWAB Ordering Facility: [facility] Address: [address] [place] [address] Performed By: #### S TAPCR #### [facility] CLIA [id number] [address] [place] [address] #### [id number] #### [facility] CLIA [id number] [address] [place] [address] S pyo DNA Throat Ql JIAN+prob manjit 03-03-2024 S. pyogenes DNA JIAN+probe Ql (Throat) Detected Abnormal Not detected [facility] Comment on above: Order Comment: Speci men Type: SWAB Ordering Facility: [facility] Address: [address] [place] [address] Performed By: #### S TAPCR #### [facility] CLIA [id number] [address] [place] [address] [place] #### [id number] #### [facility] CLIA [id number] [address] [place] [address] Progress Noteson 08-31-2020 Concept Artist Authentication Interface Message Text PHARMACOLOGIC MANAGEMENT: DATE: 08/31/2020 START TIME: 1600 END TIME: 1621 21 minutes for Pharmacological Management and Therapy/Psychoeducati on Documentation: Mode: Video Consent: This visit was [...] MOOD: euthymic 10. AFFECT: range full 11. ATTENTION/CONCENTRATI ON: Sustained 12. RECENT AND REMOTE MEMORY: Within [...] arranged Marshall Rodríguez MD PGY-3, Psychiatry Pager [phone] Attending/Teaching Physician Note: I evaluated Sherri Logan. I personally obtained the ceron and critical portions of the history and physical exam. I reviewed the resident's documentation and discussed the patient with the resident. I agree with the resident's medical decision making as documented in the resident's note. Phone: Time spent 7 minutes Chai Rachel MD Child and Adolescent Psychiatrist Pin [phone] Pager [phone] 09/01/2020 Normal [facility] Progress Noteson 08-29-2020 Concept Artist Authentication Interface Message Text PHARMACOLOGIC MANAGEMENT: DATE: [...] show. Marshall Rodríguez MD PGY-3, Psychiatry Pager [phone] This encounter was opened in error. Patient was a No-Show. Please disregard. Normal [facility] Vital Signs Date Time Vital Sign Value Performing Clinician Facility 11-29-2024 23:28-0400 Body temperature 98 [degF] No Primary Care Physician [facility] 11-29-2024 23:28-0400 Diastolic blood pressure 84 mm[Hg] No Primary Care Physician [facility] 11-29-2024 23:28-0400 Heart rate 70 /min No Primary Care Physician [facility] 11-29-2024 23:28-0400 Respiratory rate 18 /min No Primary Care Physician [facility] 11-29-2024 23:28-0400 SaO2% (BldA) [Mass fraction] 100 % No Primary Care Physician [facility] 11-29-2024 23:28-0400 Systolic blood pressure 144 mm[Hg] No Primary Care Physician [facility] 11-29-2024 21:43-0400 Body height 172.72 cm No Primary Care Physician [facility] 11-29-2024 21:43-0400 Body mass index (BMI) [Ratio] 39.7 kg/m2 No Primary Care Physician [facility] 11-29-2024 21:43-0400 Body weight 118.61 kg No Primary Care Physician [facility] 07-17-2023 15:29-0400 Body temperature 97.81 [degF] Carol [...] mm[Hg] Carol Mcnamara MD Other Phone: [facility] Encounters Encounter Date Encounter Type Care Provider Facility Start: 11-29-2024 End: 11-29-2024 Emergency department patient visit No Primary Care Physician -Emergency Department Work Phone: Start: 11-29-2024 End: 11-29-2024 Emergency department patient visit BALDEMAR Corley ELOISA [facility] Start: 03-03-2024 End: 03-05-2024 ambulatory JOSUE SAM Facility:[id number] Start: 07-17-2023 End: 07-17-2023 Office outpatient new 45 minutes Carol Mcnamara MD Other Phone: [facility] Endocrinology Comment on above: Gender dysphoria (Pr imary Dx); Goiter Start: 06-23-2023 Patient encounter procedure Royal Amos RN [facility] Comment on above[facility] Coord[facility] Start: 06-17-2023 Transcribe Orders Nanci Park Other Phone: [facility] Physician Referral Service Start: 08-31-2020 End: 09-13-2020 ambulatory SELF PATIENT Facility:[facility] Start: 08-29-2020 ambulatory UNKNOWN PROVIDER Facili ty:[facility] Procedures Date Procedure Procedure Detail Performing Clinician Start: 11-29-2024 X-ray of lumbosacral spine No Primary Care Physician Plan of Treatment Date Care Activity Detail Author Start: 2054 Shingles (RZV) Vacci ne (1 of 2) Shingles (RZV) Vaccine (1 of 2) [facility] Start: 06-07-2025 Tetanus vaccination Tetanus (T d or Tdap) Booster [facility] Start: 11-29-2024 [facility] Start: 12-20-2022 COVID-19 Vaccine ( season) COVID-19 Vaccine ( season) [facility] Start: 12-20-2022 Influenza vaccination Influenza Vacc ine (#1) [facility] Start: 2022 Hepatitis C screening Hepatitis C An tibody [facility] Start: 2022 Screening for Chlamy luis a trachomatis STI Screening (Age 18-24) [facility] Start: 2020 Meningococcal B (Bexsero,OMV) Vaccine (Optional,16-23 years) Meningococcal B (Bexsero,OMV) Vaccine (Optional,16-23 years) [facility] Start: 2019 HIV screening HIV Test [facility] [employer] Assay of testosteron e total [facility] Work Phone: Comment on above: Ordered: 07/17/2023 Assay of thyroid stimulating hormone tsh TSH Lab Routine Goiter Ordered: 07/17/2023 [facility] Work Phone: Comment on above: Ordered: 07/17/2023 Basic metabolic 2000 panel - Serum or Plasma BASIC METABOLIC PANEL Lab Routine Gender dysphoria Ordered: 07/17/2023 [facility] Work Phone: Comment on above: Ordered: 07/17/2023 CBC panel - Blood by Automated count COMPLETE BLOOD COUNT Lab Routine Gender dysphoria Ordered: 07/17/2023 [facility] Work Phone: Comment on above: Ordered: 07/17/2023 Lipid 1996 panel - Serum or Plasma FULL LIPID PROFILE Lab Routine Gender dysphoria Ordered: 07/17/2023 [facility] Work Phone: Comment on above: Ordered: 07/17/2023 Patient Education Understanding Lumbosacral Strain Understanding Sacroiliac Strain [facility] Work Phone: Transferase alanine amino alt sgpt ALANINE AMINO TRANSFERASE Lab Routine Gender dysphoria Ordered: 07/17/2023 [facility] Work Phone: Comment on above: Ordered: 07/17/2023 Transferase aspartat e amino ast sgot ASPARTATE AMINOTRANSFERASE Lab Routine Gender dysphoria Ordered: 07/17/2023 [facility] Work Phone: Comment on above: Ordered: 07/17/2023 Immunizations Immunization Date Immunization Notes Care Provider Becky jorge 08-29-2021 meningococcal oligosaccharide (groups A, C, Y and W-135) diphtheria toxoid conjugate vaccine (MCV4O) Nanci Marlenaorvandhara Other Phone: [facility] 12-08-2018 varicella virus vaccine Ginny yoan Marlenaorvandhara Other Phone: [facility] 03-06-2017 Human Papillomavirus 9-valent vaccine Nanci Marlenaorvanek Other Phone: [facility] Work Phone: 03-06-2017 influenza, injectabl e, quadrivalent, preservative free Nanci Skorvanek Other Phone: [facility] Work Phone: 03-06-2017 influenza virus vacc ine, unspecified formulation Nanci Skorvanek Other Phone: [facility] Work Phone: 06-07-2015 Human Papillomavirus 9-valent vaccine Nanci Marlenaorvanek Other Phone: [facility] Work Phone: 06-07-2015 meningococcal oligosaccharide (groups A, C, Y and W-135) diphtheria toxoid conjugate vaccine (MCV4O) Nanci Andriyvan Other Phone: [facility] Work Phone: 06-07-2015 tetanus toxoid, redu rossi diphtheria toxoid, and acellular pertussis vaccine, adsorbed Nanci Skorvanek Other Phone: [facility] Work Phone: 2014 influenza, injectabl e, quadrivalent, preservative free Nanci Skorvanek Other Phone: [facility] Work Phone: 07-04-2009 diphtheria, tetanus toxoids and acellular pertussis vaccine, unspecified formulation Nanci Skorvanek Other Phone: [facility] Work Phone: 07-04-2009 measles, mumps and rubella virus vaccine Nanci Skorvanek Other Phone: [facility] Work Phone: 07-04-2009 poliovirus vaccine, unspecified formulation Nanci Skorvanek Other Phone: [facility] Work Phone: 07-04-2009 varicella virus vaccine Ginny yoan Skorvanek Other Phone: [facility] Work Phone: 08-11-2007 hepatitis A vaccine, pediatric/adolescent dosage, 2 dose schedule Nanci Skorvanek Other Phone: [facility] Work Phone: 2006 hepatitis A vaccine, pediatric/adolescent dosage, 2 dose schedule Nanci Skorvanek Other Phone: [facility] Work Phone: 2006 influenza virus vacc ine, unspecified formulation Nanci Skorvanek Other Phone: [facility] Work Phone: 07-04-2005 diphtheria, tetanus toxoids and acellular pertussis vaccine, unspecified formulation Nanci Skorvanek Other Phone: [facility] Work Phone: 07-04-2005 haemophilus influenz ae type b vaccine, conjugate unspecified formulation Nanci Skorvanek Other Phone: [facility] Work Phone: 07-04-2005 hepatitis B vaccine, unspecified formulation Nanci Skorvanek Other Phone: [facility] Work Phone: 07-04-2005 pneumococcal Conjuga te, [...] unspecified formulation Nanci Skorvanek Other Phone: [facility] Work Phone: Payers Date Payer Category Payer Self-pay 2023 Unknown [id number] 2023 Private Health Insurance [id number] 2020 Private Health Insurance [id number] 2004 Unknown [id number] 1981 Unknown [id number] 1981 Unknown [id number] Unknown [id number] Social History Date Type Detail Facility Start: 01-28-2019 End: 11-29-2024 Tobacco smoking status NHIS Never smoked tobacco [facility] History of tobacco use Passive smoker [facility] Work Phone: Start: 01-28-2019 Tobacco use and exposure Smokeless tobacco non-user [facility] Work Phone: Start: 01-28-2019 Tobacco Comment Smoker present in [facility] Work Phone: Start: 2005 Sex Assigned At Not on file T [facility] Work Phone: Start: 11-23-2019 Gender identity Not on file [facility] Work Phone: Start: 11-23-2019 History of Social function [facility] Work Phone: Adolescent depressio n screening assessment 0 [facility] Work Phone: Start: 2005 Sex Assigned At Female W [facility] Radiology Diagnostic study note 11-29-2024 Note Date & Type Note Facility 11-29-2024 Radiology Diagnostic study note [facility] Imaging Services [address] [place] [phone] (656) L/S Spine Min 4 Views MR#: [id number] Acct: [id number] Name: SHERRI LOGAN Rep #: [id number] : 2005 F 19 From: Angus Alexis MD PCP: Care Physician,No Primary Status: REG ER Study:L/S Spine Min 4 Views Date of Exam: 11/29/24 Exam# [id number] Ordering Dr: Janet Palencia DO PROCEDURE: L/S SPINE MIN 4 VIEWS 11/29/2024 REASON FOR EXAM: PAIN TECHNIQUE: L/S SPINE MIN 4 VIEWS FINDINGS: No evidence of acute fracture or dislocation. No visualized pars defects. The intervertebral disc spaces are maintained. Vertebral body heights are maintained. Normal alignment. RAD/L/S Spine Min 4 Views IMPRESSION: No acute abnormalities. Reading Location: [id number] CC: Masood Palencia DO; No Primary Care Physician ~ Cosmetic Sales Assistant: Signed [facility] Progress note 03-03-2024 Note Date & Type Note Facility 03-03-2024 Note HNO ID: [id number] Author: RUTH MENJIVAR MD Service: ? 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 She states that [...] MG TABLET - IBUPROFEN 600 MG TABLET [facility] History of Present illness [...] implemented: Yes documented in this encounter [employer] Work Phone: Evaluation note Note Date & Type Note Facility Evaluation note Diagnosis Counseling for hormone replacement therapy- Primary Need for prophylactic hormone replacement therapy (postmenopausal) documented in this encounter [facility] [employer] Work Phone: Evaluation note Note Date & Type Note Facility Evaluation note Diagnosis Gender dysphoria- Primary Goiter Goiter, unspecified documented in this encounter [employer] Work Phone: Evaluation note Note Date & Type Note Facility Evaluation note No assessment information availa ble [facility] Work Phone: Hospital Discharge instructions Note Date & Type Note Facility Hospital Discharge instructions Additional Instructions Your x-ray did not show any sign bony abnormality or joint space narrowing. Therefore I feel your symptoms are most likely related to nerve impingement from superficial muscle tension and spasm. Please stretch and heat to low back to help reduce pain and speed healing. Take the prescribed medications as directed to help as well. If you have any further concerns or worsening of symptoms please return for repeat evaluation [facility] Work Phone: Reason for referral (narrative) Note Date & Type Note Facility Reason for referral (narrative) No reason for referral information available [facility] Work Phone: Summary Purpose Family History No Family History Records FoundNo Family History Records FoundNo Family History Records FoundNo Family History Records Found Advance Directives No Advanced Directives Records Found Advance Directive Response Recorded Date/ Time Do you have a Healthcare Power of Powertrain Calibration Engineer? No November 29, 2024 10:30pm Reason for Referral Specialty Diagnoses / Procedures Referred By Ramila schmidt Referred To Contact Endocrinology Diagnoses Counseling for hormone replacement therapy Nanci Park [address] [facility] [address] [place] [address] [facility] ENDOCRINOLOGY [address] [place] [id number] Referral ID Status Reason Start Date Expiration Date V isits Requested Visits Authorized [id number] Authorized 06/19/2023 06/17/2024 3 3 Scheduling Instructions Please call the Endocrinology Clinic at [phone] to schedule an appointment if one was not made for you today. Question Answer Patient to be evaluated for: Hormones [10] Comments No prior visits in Endocrinology Specialty Diagnoses / Procedures Referred By Ramila schmidt Referred To Contact Psychiatry Diagnoses Gender dysphoria Carol Mcnamara MD [address] [place] [id number] [facility] PSY ADULT GENERAL [address] [phone] Referral ID Status Reason Start Date Expiration Date V isits Requested Visits Authorized [id number] Authorized 07/17/2023 07/16/2024 3 3 Scheduling Instructions You have been referred to Outpatient Behavioral Health. In order to begin services, you will need to attend an intake assessment with a licensed optician. (No medications will be provided at this appointment. Linkage to treatment is made after completion of the initial assessment.) To schedule an intake, please contact our office at and we will schedule you an appointment with a licensed optician. All scheduled intake appointments run between 8AM-3:00PM Friday through Friday with some capacity for evening appointments. Intakes are available in person or via video. Assessment locations are as follows: o [address] [facility] (walk-in available 8 a.m.-2 p.m, first come first served) o [address] [facility] (by appointment only) For quicker assistance, please consider utilizing our online scheduling tool at [email or web address]. We look forward to assisting you. Thank you for choosing [facility]. Question Answer Behavioral Health Service Options Counseling Comments Please utilize the [id number] Integrated Behavioral Health referral if initiating Psychology or Psychiatry services from a site that offers Integrated Behavioral Health. Please utilize the [id number], Addiction Referral Outpatient if requesting that this patient be evaluated for Substance Use Disorder (RABIA) reasons. Chief Complaint and Reason for Visit Chief Complaint Admit Date Abd pain November 29, 2024 9: 43pm Additional Source Comments INFORMATION SOURCE (unrecogn ized section and content) DATE CREATED AUTHOR 05/24/2021 [facility] DATE CREATED AUTHOR AUTHOR'S ORGANIZ ATION 03/08/2024 [facility] DATE CREATED AUTHOR AUTHOR'S ORGANIZ ATION 12/01/2024 [facility] DATE CREATED AUTHOR AUTHOR'S ORGANIZ ATION 12/01/2024 [facility] Reason for Visit (unrecogniz ed section and content) Reason Onset Date Comments Referral to Specialist 06/23/2023 Care Coordination 06/23/2023 Reason Comments New patient, to establish relationship Specialty Diagnoses / Procedures Referred By Ramila schmidt Referred To Contact Endocrinology Diagnoses Counseling for hormone replacement therapy Nanci Park [address] [facility] [address] [place] [address] [facility] ENDOCRINOLOGY [address] [place] [address] Referral ID Status Reason Start Date Expiration Date V isits Requested Visits Authorized [id number] Authorized 06/19/2023 06/17/2024 3 3 Care Teams (unrecognized sec tion and content) Team Status: Active Member Role/Relationship Status Dates No Primary Care Physician Primary Care Provider Active Team Status: Inactive Member Role/Relationship Status Dates No Primary Care Physician Primary Care Provider Active Start: November 29, 2024 End: November 29, 2024 Dr. Masood Palencia , DO Emergency Provider Active Start: November 29, 2024 End: November 29, 2024 Goals (unrecognized section and content) Goals may be documented in a n alternate section FOR RECORDS PERTAINING TO PATIENTS WHO ARE [...] BE BASED ON THE PRIMARY CLINICAL RECORDS. [facility] [employer] [facility]. provides no warranty or guarantee of the accuracy or completeness of information in this document.
--- OUTSIDE RECORDS SUMMARY | 2024-12-03 22:26 | XMS RPT_ITS | CCD ---
Author Organization [facility] Care Team Providers Care Algology Teacher Name Role Phone PATIENT, SELF Referring Unavailable JOSUE ASM Primary [...] Unavailable Dr. 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 11/29/24 21:43:37 EDT) Generated by [facility] 1 of 1 Normal [facility] ED ORDER SHEET (CPOE ONLY)on 11-29-2024 ED ORDER SHEET (CPOE ONLY) Order Sheet - SHERRI LOGNA, : 2005, , Order Sheet [address] [address] [id number] 11/29/2024 Patient: SHERRI LOGAN Sex: Female : 2005 Age: 19y MEDICATION/IV/DRIP/FL UID ORDERS Order Description Priority Entered Acknowledged Completed LAB ORDERS Order Description Priority Entered Acknowledged Collected Completed DIAGNOSTIC STUDY ORDERS Order Description Priority Entered Acknowledged Completed STAFF ORDERS Order Description Priority Entered Acknowledged Collected Completed 1 of 1 Normal [facility] ED SUPER BILLon 11-29-2024 ED SUPER BILL [facility] - SHERRI LOGAN, : 2005, , [address] [address] [id number] 11/29/2024 Patient: SHERRI LOGAN Sex: Female : 2005 Age: 19y Item Professional Category Description Facility Code Code Quantity Fee Total Grand Total $0.00 1 of 1 [facility] ED VISIT SUMMARYon ED VISIT SUMMARY Visit Overview - SHERRI LOGAN, : 2005, , Visit [address] [address] [id number] 11/29/2024 Patient: SHERRI LOGAN Sex: Female : [...] / STUDIES CLINICAL IMPRESSION 2 of 2 [facility] ED VITALS FLOW SHEETon 11-29 ED VITALS FLOW SHEET Vitals - SHERRI LOGAN, : 2005, , Vital Sign Flow Sheet [facility] [address] [place] [address] [id number] 11/29/2024 Patient: SHERRI LOGAN Sex: Female : 2005 Age: 19y 1 of 1 Normal [facility] Emergency Department Summary on 11-29-2024 Emergency Department Summary [facility] Medical Records Department [address] [place] [address] Emergency Department Summary 11/29/24 MR#: [id number] Acct: [id number] Name: SHERRI LOGAN Rep #: [id number] : 2005 19 From: Masood Palencia DO [...] bladder control. She states she is taken szzw-zxy-sgexloc medications throughout the day with minimal symptom improvement and secondary to this comes in for evaluation. [facility] Medical History (Updated 11/29/24 @ 23:20 by [...] equina syndrom (more content not included)... Normal [facility] L/S Spine Min 4 Viewson 11-19 L/S Spine Min 4 Views [facility] Imaging Services [address] [place], [place] [address] L/S Spine Min 4 Views MR#: [id number] Acct: [id number] Name: SHERRI LOGAN Rep #: [id number] : 2005 F 19 From: Jean-Pierre Alexis MD PCP: Care Physician,No Primary Status: REG ER Study: L/S Spine Min 4 Views Date of Exam: 11/29/24 Exam# [id number] Ordering Dr: Masood Palencia DO PROCEDURE: L/S SPINE MIN 4 VIEWS 11/29/2024 REASON FOR EXAM: PAIN TECHNIQUE: L/S SPINE MIN 4 VIEWS FINDINGS: No evidence of acute fracture or dislocation. No visualized pars defects. The intervertebral disc spaces are maintained. Vertebral body heights are maintained. Normal alignment. RAD/L/S Spine Min 4 Views IMPRESSION: No acute abnormalities. Reading Location: [id number] CC: Masood Palencia DO; No Primary Care Physician Education Spec: Signed Normal [facility] Tawana 03-04-2024 [facility] Telephone ([facility]) SHERRI LOGAN ([id number]) 3 F Date Time Provider Department 03/04/24 [...] Encounter Status:Closed by ADINA CONTRERAS on 03/04/24 [facility] CNPN Telephone (UCMNCA) SHERRI LOGAN ([id number]) 3 F Date Time Provider Department 03/04/24 RUTH MENJIVAR During your visit today, we recorded the following information about you: Ruth Menjivar MD 03/04/2024 4:30 PM Signed Please inform patient amoxicillin and ibuprofen sent to designated pharmacy. Savita Martinez LPN 03/04/2024 6:57 PM Signed Patient notified prescriptions have been sent to [facility] per patient request. Patient verbalized understanding. Savita [...] Encounter Status:Closed by RUTH MENJIVAR on 03/04/24 [facility] Office Visit (UCMNCA ) SHERRI LOGAN ([id number]) 3 F Date Time Provider Department 03/03/24 6:30 PM RUTH MENJIVAR [facility] During your visit today, we recorded [...] to work at her job at the [employer] since she became ill. She states that [...] STREP RFLX TO PCR [SQSTAPCR] Order #: [id number] FUTURE (more content not included)... Normal [facility] RAPID GROUP A STREP RFLX TO PCRon 03-03-2024 S. pyogenes Ag Ql (Throat) Negative Normal Negative Group A Strep Screen [facility] Comment on above: Order Comment: Speci men Type: SWAB Ordering Facility: [facility] Address: [address] [place] [address] Performed By: #### S TAPCR #### [facility] CLIA [id number] [address] [place] [address] #### [id number] #### [facility] CLIA [id number] [address] [place] [address] S pyo DNA Throat Ql JIAN+prob manjit 03-03-2024 S. pyogenes DNA JIAN+probe Ql (Throat) Detected Abnormal Not detected [facility] Comment on above: Order Comment: Speci men Type: SWAB Ordering Facility: [facility] Address: [address] [place] [address] Performed By: #### S TAPCR #### [facility] CLIA [id number] [address] [place] [address] [place] #### [id number] #### [facility] CLIA [id number] [address] [place] [address] Progress Noteson 08-31-2020 Business Applications Analyst Authentication Interface Message Text PHARMACOLOGIC MANAGEMENT: DATE: [...] arranged Marshall Rodríguez MD PGY-3, Psychiatry Pager [phone] Attending/Teaching Physician Note: I evaluated Sherri Logan. I personally obtained the ceron and critical portions of the history and physical exam. I reviewed the resident's documentation and discussed the patient with the resident. I agree with the resident's medical decision making as documented in the resident's note. Phone: Time spent 7 minutes Chai Rachel MD Child and Adolescent Psychiatrist Pin [phone] Pager [phone] 09/01/2020 Normal [facility] Progress Noteson 08-29-2020 Business Applications Analyst Authentication Interface Message Text PHARMACOLOGIC MANAGEMENT: DATE: [...] show. Marshall Rodríguez MD PGY-3, Psychiatry Pager [phone] This encounter was opened in error. Patient was a No-Show. Please disregard. Normal [facility] Vital Signs Date Time Vital Sign Value Performing Clinician Facility 11-29-2024 23:28-0400 Body temperature 98 [degF] No Primary Care Physician [facility] 11-29-2024 23:28-0400 Diastolic blood pressure 84 mm[Hg] No Primary Care Physician [facility] 11-29-2024 23:28-0400 Heart rate 70 /min No Primary Care Physician [facility] 11-29-2024 23:28-0400 Respiratory rate 18 /min No Primary Care Physician [facility] 11-29-2024 23:28-0400 SaO2% (BldA) [Mass fraction] 100 % No Primary Care Physician [facility] 11-29-2024 23:28-0400 Systolic blood pressure 144 mm[Hg] No Primary Care Physician [facility] 11-29-2024 21:43-0400 Body height 172.72 cm No Primary Care Physician [facility] 11-29-2024 21:43-0400 Body mass index (BMI) [Ratio] 39.7 kg/m2 No Primary Care Physician [facility] 11-29-2024 21:43-0400 Body weight 118.61 kg No Primary Care Physician [facility] 07-17-2023 15:29-0400 Body temperature 97.81 [degF] Carol [...] mm[Hg] Carol Mcnamara MD Other Phone: [facility] Encounters Encounter Date Encounter Type Care Provider Facility Start: 11-29-2024 End: 11-29-2024 Emergency department patient visit No Primary Care Physician -Emergency Department Work Phone: Start: 11-29-2024 End: 11-29-2024 Emergency department patient visit BALDEMAR Corley ELOISA [facility] Start: 03-03-2024 End: 03-05-2024 ambulatory JOSUE SAM Facility:[id number] Start: 07-17-2023 End: 07-17-2023 Office outpatient new 45 minutes Carol Mcnamara MD Other Phone: [facility] Endocrinology Comment on above: Gender dysphoria (Pr imary Dx); Goiter Start: 06-23-2023 Patient encounter procedure Royal Amos RN [facility] Comment on above: [facility] Care Coordination Start: 06-17-2023 Transcribe Orders Nanci Park Other Phone: [facility] Physician Referral Service Start: 08-31-2020 End: 09-13-2020 ambulatory SELF PATIENT Facility:[facility] Start: 08-29-2020 ambulatory UNKNOWN PROVIDER Facili ty:[facility] Procedures Date Procedure Procedure Detail Performing Clinician Start: 11-29-2024 X-ray of lumbosacral spine No Primary Care Physician Plan of Treatment Date Care Activity Detail Author Start: 2054 Shingles (RZV) Vacci ne (1 of 2) Shingles (RZV) Vaccine (1 of 2) [facility] Start: 06-07-2025 Tetanus vaccination Tetanus (T d or Tdap) Booster [facility] Start: 11-29-2024 [place] Start: 12-20-2022 COVID-19 Vaccine ( season) COVID-19 Vaccine ( season) [facility] Start: 12-20-2022 Influenza vaccination Influenza Vacc ine (#1) [facility] Start: 2022 Hepatitis C screening Hepatitis C An tibody [facility] Start: 2022 Screening for Chlamy luis a trachomatis STI Screening (Age 18-24) [facility] Start: 2020 Meningococcal B (Bexsero,OMV) Vaccine (Optional,16-23 years) Meningococcal B (Bexsero,OMV) Vaccine (Optional,16-23 years) [facility] Start: 2019 HIV screening HIV Test [facility] [employer] Assay of testosteron e total [facility] Work Phone: Comment on above: Ordered: 07/17/2023 Assay of thyroid stimulating hormone tsh TSH Lab Routine Goiter Ordered: 07/17/2023 [facility] Work Phone: Comment on above: Ordered: 07/17/2023 Basic metabolic 2000 panel - Serum or Plasma BASIC METABOLIC PANEL Lab Routine Gender dysphoria Ordered: 07/17/2023 [facility] Work Phone: Comment on above: Ordered: 07/17/2023 CBC panel - Blood by Automated count COMPLETE BLOOD COUNT Lab Routine Gender dysphoria Ordered: 07/17/2023 [facility] Work Phone: Comment on above: Ordered: 07/17/2023 Lipid 1996 panel - Serum or Plasma FULL LIPID PROFILE Lab Routine Gender dysphoria Ordered: 07/17/2023 [facility] Work Phone: Comment on above: Ordered: 07/17/2023 Patient Education Understanding Lumbosacral Strain Understanding Sacroiliac Strain [facility] Work Phone: Transferase alanine amino alt sgpt ALANINE AMINO TRANSFERASE Lab Routine Gender dysphoria Ordered: 07/17/2023 [facility] Work Phone: Comment on above: Ordered: 07/17/2023 Transferase aspartat e amino ast sgot ASPARTATE AMINOTRANSFERASE Lab Routine Gender dysphoria Ordered: 07/17/2023 [facility] Work Phone: Comment on above: Ordered: 07/17/2023 Immunizations Immunization Date Immunization Notes Care Provider Becky jorge 08-29-2021 meningococcal oligosaccharide (groups A, C, Y and W-135) diphtheria toxoid conjugate vaccine (MCV4O) Nanci Marlenaorvandhara Other Phone: [facility] 12-08-2018 varicella virus vaccine Ginny yoan Marlenaorvandhara Other Phone: [facility] 03-06-2017 Human Papillomavirus 9-valent vaccine Nanci Marlenaorvanek Other Phone: [facility] Work Phone: 03-06-2017 influenza, injectabl e, quadrivalent, preservative free Nanci Skorvanek Other Phone: [facility] Work Phone: 03-06-2017 influenza virus vacc ine, unspecified formulation Nanci Skorvanek Other Phone: [facility] Work Phone: 06-07-2015 Human Papillomavirus 9-valent vaccine Nanci Marlenaorvanek Other Phone: [facility] Work Phone: 06-07-2015 meningococcal oligosaccharide (groups A, C, Y and W-135) diphtheria toxoid conjugate vaccine (MCV4O) Nanci Andriyvan Other Phone: [facility] Work Phone: 06-07-2015 tetanus toxoid, redu rossi diphtheria toxoid, and acellular pertussis vaccine, adsorbed Nanci Skorvanek Other Phone: [facility] Work Phone: 2014 influenza, injectabl e, quadrivalent, preservative free Nanci Skorvanek Other Phone: [facility] Work Phone: 07-04-2009 diphtheria, tetanus toxoids and acellular pertussis vaccine, unspecified formulation Nanci Skorvanek Other Phone: [facility] Work Phone: 07-04-2009 measles, mumps and rubella virus vaccine Nanci Skorvanek Other Phone: [facility] Work Phone: 07-04-2009 poliovirus vaccine, unspecified formulation Nanci Skorvanek Other Phone: [facility] [employer] [facility] Work Phone: 07-04-2009 varicella virus vaccine Ginny yoan Skorvanek Other Phone: [facility] Work Phone: 08-11-2007 hepatitis A vaccine, pediatric/adolescent dosage, 2 dose schedule Nanci Skorvanek Other Phone: [facility] Work Phone: 2006 hepatitis A vaccine, pediatric/adolescent dosage, 2 dose schedule Nanci Skorvanek Other Phone: [facility] Work Phone: 2006 influenza virus vacc ine, unspecified formulation Nanci Skorvanek Other Phone: [facility] Work Phone: 07-04-2005 diphtheria, tetanus toxoids and acellular pertussis vaccine, unspecified formulation Nanci Skorvanek Other Phone: [facility] Work Phone: 07-04-2005 haemophilus influenz ae type b vaccine, conjugate unspecified formulation Nanci Skorvanek Other Phone: [facility] Work Phone: 07-04-2005 hepatitis B vaccine, unspecified formulation Nanci Skorvanek Other Phone: [facility] Work Phone: 07-04-2005 pneumococcal Conjuga te, [...] unspecified formulation Nanci Skorvanek Other Phone: [facility] Work Phone: Payers Date Payer Category Payer Self-pay 2023 Unknown [id number] 2023 Private Health Insurance [id number] 2020 Private Health Insurance [id number] 2004 Unknown [id number] 1981 Unknown [id number] 1981 Unknown [id number] Unknown [id number] Social History Date Type Detail Facility Start: 01-28-2019 End: 11-29-2024 Tobacco smoking status NHIS Never smoked tobacco [facility] History of tobacco use Passive smoker [facility] Work Phone: Start: 01-28-2019 Tobacco use and exposure Smokeless tobacco non-user [facility] Work Phone: Start: 01-28-2019 Tobacco Comment Smoker present in [facility] Work Phone: Start: 2005 Sex Assigned At Not on file T [facility] Work Phone: Start: 11-23-2019 Gender identity Not on file [facility] Work Phone: Start: 11-23-2019 History of Social function [facility] Work Phone: Adolescent depressio n screening assessment 0 [facility] Work Phone: Start: 2005 Sex Assigned At Female W [facility] Radiology Diagnostic study note 11-29-2024 Note Date & Type Note Facility 11-29-2024 Radiology Diagnostic study note [facility] Imaging Services [address] [place] [address] (355) L/S Spine Min 4 Views MR#: [id number] Acct: [id number] Name: SHERRI LOGAN Rep #: [id number] : 2005 F 19 From: Angus Alexis MD PCP: Care Physician,No Primary Status: REG ER Study:L/S Spine Min 4 Views Date of Exam: 11/29/24 Exam# [id number] Ordering Dr: Janet Palencia DO PROCEDURE: L/S SPINE MIN 4 VIEWS 11/29/2024 REASON FOR EXAM: PAIN TECHNIQUE: L/S SPINE MIN 4 VIEWS FINDINGS: No evidence of acute fracture or dislocation. No visualized pars defects. The intervertebral disc spaces are maintained. Vertebral body heights are maintained. Normal alignment. RAD/L/S Spine Min 4 Views IMPRESSION: No acute abnormalities. Reading Location: [id number] CC: Masood Palencia DO; No Primary Care Physician ~ Education Spec: Signed [facility] Progress note 03-03-2024 Note Date & Type Note Facility 03-03-2024 Note HNO ID: [id number] Author: RUTH MENJIVAR MD Service: ? Author [...] to work at her job at the [employer] since she became ill. She states that [...] MG TABLET - IBUPROFEN 600 MG TABLET [facility] History of Present illness Narrative 07-17-2023 Carol [...] implemented: Yes documented in this encounter [facility] Work Phone: Evaluation note Note Date & Type Note Facility Evaluation note Diagnosis Counseling for hormone replacement therapy- Primary Need for prophylactic hormone replacement therapy (postmenopausal) documented in this encounter [facility] Work Phone: Evaluation note Note Date & Type Note Facility Evaluation note Diagnosis Gender dysphoria- Primary Goiter Goiter, unspecified documented in this encounter [facility] Work Phone: Evaluation note Note Date & Type Note Facility Evaluation note No assessment information availa ble [facility] Work Phone: Hospital Discharge instructions Note Date [...] of symptoms please return for repeat evaluation [facility] Work Phone: Reason for referral (narrative) Note Date & Type Note Facility Reason for referral (narrative) No reason for referral information available [facility] Work Phone: Summary Purpose Family History No Family History Records FoundNo Family History Records FoundNo Family History Records FoundNo Family History Records Found Advance Directives No Advanced Directives Records Found Advance Directive Response Recorded Date/ Time Do you have a Healthcare Power of Division Merchandise Manager? No November 29, 2024 10:30pm Reason for Referral Specialty Diagnoses / Procedures Referred By Ramila schmidt Referred To Contact Endocrinology Diagnoses Counseling for hormone replacement therapy Nanci Park [address] [place] [address] [facility] ENDOCRINOLOGY [address] [place] [id number] Referral ID Status Reason Start Date Expiration Date V isits Requested Visits Authorized [id number] Authorized 06/19/2023 06/17/2024 3 3 Scheduling Instructions Please call the Endocrinology Clinic at [phone] to schedule an appointment if one was not made for you today. Question Answer Patient to be evaluated for: Hormones [10] Comments No prior visits in Endocrinology Specialty Diagnoses / Procedures Referred By Ramila schmidt Referred To Contact Psychiatry Diagnoses Gender dysphoria Carol Mcnamara MD [address] [place] [address] [facility] PSY ADULT GENERAL [address] [id number] Referral ID Status Reason Start Date Expiration Date V isits Requested Visits Authorized [id number] Authorized 07/17/2023 07/16/2024 3 3 Scheduling Instructions You have been referred to Outpatient Behavioral Health. In order to begin services, you will need to attend an intake assessment with a nurse licensed practical. (No medications will be provided at this appointment. Linkage to treatment is made after completion of the initial assessment.) To schedule an intake, please contact our office at and we will schedule you an appointment with a nurse licensed practical. All scheduled intake appointments run between 8AM-3:00PM Friday through Friday with some capacity for evening appointments. Intakes are available in person or via video. Assessment locations are as follows: o [address] [facility] (walk-in available 8 a.m.-2 p.m, first come first served) o [address] [facility] (by appointment only) For quicker assistance, please consider utilizing our online scheduling tool at [email or web address]. We look forward to assisting you. Thank you for choosing [facility]. Question Answer Behavioral Health Service Options Counseling Comments Please utilize the [id number] Integrated Behavioral Health referral if initiating Psychology or Psychiatry services from a site that offers Integrated Behavioral Health. Please utilize the INR027, Addiction Referral Outpatient if requesting that this patient be evaluated for Substance Use Disorder (RABAI) reasons. Chief Complaint and Reason for Visit Chief Complaint Admit Date Abd pain November 29, 2024 9: 43pm Additional Source Comments INFORMATION SOURCE (unrecogn ized section and content) DATE CREATED AUTHOR 05/24/2021 [facility] DATE CREATED AUTHOR AUTHOR'S ORGANIZ ATION 03/08/2024 [facility] DATE CREATED AUTHOR AUTHOR'S ORGANIZ ATION 12/01/2024 [facility] DATE CREATED AUTHOR AUTHOR'S ORGANIZ ATION 12/01/2024 [facility] Reason for Visit (unrecogniz ed section and content) Reason Onset Date Comments Referral to Specialist 06/23/2023 Care Coordination 06/23/2023 Reason Comments New patient, to establish relationship Specialty Diagnoses / Procedures Referred By Ramila schmidt Referred To Contact Endocrinology Diagnoses Counseling for hormone replacement therapy Nanci Park [address] [facility] [address] [place] [address] [facility] ENDOCRINOLOGY [address] [place] [address] Referral ID Status Reason Start Date Expiration Date V isits Requested Visits Authorized [id number] Authorized 06/19/2023 06/17/2024 3 3 Care Teams [...] BE BASED ON THE PRIMARY CLINICAL RECORDS. [facility] [employer] [facility]. provides no warranty or guarantee of the accuracy or completeness of information in this document.
[2024-12-03 23:30] LABS: Magnesium 2.0 mg/dL (1.5-2.2)
[2024-12-03] MEDS: 0.9% Normal Saline (1000mL) 1,000 ML 150 ML IV (23:46)
[2024-12-03] MEDS: Pantoprazole Sodium 40 MG in 0.9% Normal Saline (100mL MB+) 100 ML 330 MG IV (23:58)
[2024-12-04] VITALS (13 sets, daily range): BP systolic 124–147; BP diastolic 50–91; PULSE 51–90; RESP 16–18; TEMP 36.6–37.1; O2SAT 93–100; BMI 39.1
--- NOTE | 2024-12-04 05:16 | EKG12_ITS ---
Test Reason : PRE OP Blood Pressure : */* mmHG Vent. Rate : 55 BPM Atrial Rate : 55 BPM P-R Int : 158 ms QRS Dur : 84 ms QT Int : 412 ms P-R-T Axes : 20 16 19 degrees QTcB Int : 394 ms Sinus bradycardia with sinus arrhythmia Otherwise normal ECG No previous ECGs available Confirmed by IRAIDA BUCKNER, LONNIE ([id number]), continuity editor SID KNUTSON ([id number]) on 12/07/2024 6:15:22 AM Referred By: Confirmed By: LONNIE KHOURY MD
[2024-12-04] MEDS: 0.9% Normal Saline (1000mL) 1,000 ML 150 ML IV (05:54)
[2024-12-04] MEDS: Piperacil/Tazobactam 3.375 GM in 0.9% Normal Saline (50mL MB+) 50 ML IV ×3 (05:54→22:47)
[2024-12-04 07:05] LABS: Hematocrit 35.7 % (37-47); Hemoglobin 11.7 g/dL (12.0-15.0); Immature Granulocytes Count 0.010 X10^3/uL (0.0-0.0); Mean Corp Hgb Conc 32.8 g/dL (32-36); Mean Corpuscular Volume 87.1 fL (81-99); Mean Platelet Vol. 10.3 fl (6.2-12.0); NRBC Flagged by Analyzer 0 % (0-5); Platelet Count 278 K/mm3 (150-450); RBC Distribution Width CV 14.2 % (11.6-14.6); RBC Distribution Width SD 45.5 fl (35.1-43.9); Red Blood Count 4.10 M/mm3 (4.2-5.4); White Blood Count 6.3 K/mm3 (4.4-11.0)
[2024-12-04 07:58] LABS: AST(SGOT) 141 U/L (<=31); Alanine Aminotransfer ALT/SGPT 267 U/L (<=34); Albumin, Serum 3.5 g/dL (3.5-5.0); Alkaline Phosphatase 192 U/L (35-104); Anion Gap 10 (5-15); BUN 8 mg/dL (4-19); BUN/Creat Ratio 9.8 RATIO (10-20); Calcium,Total 8.9 mg/dL (7.6-11.0); Carbon Dioxide 21.2 mmol/L (21.0-32.0); Chloride 108 mmol/L (98-108); Estimated Creatinine Clearance 143.66 ml/min (50-250); Globulin 2.9 g/dL (2.2-4.2); Glucose 90 mg/dL (70-99); Potassium 4.2 mmol/L (3.3-5.1)
--- NOTE | 2024-12-04 08:55 | CON.PCM.SX_ITS ---
Assessment & Plan Assessment/Plan (1) Acute cholecystitis: (2) Choledocholithiasis: PLAN: Plan The patient has likely choledocholithiasis and her bilirubin is rising today. She also has some thickening of the gallbladder wall indicating a component of acute cholecystitis. The patient needs ERCP before laparoscopic cholecystectomy. I did briefly discussed laparoscopic cholecystectomy with her but I will go in more detail tomorrow. Plan for surgery after ERCP. Continue antibiotics. Nigel Marshall MD Pager: [facility] [address] [place] [address], [address] [place] [address] Office: HPI Consult Data Date of Consult: 12/04/24 HPI Narrative HPI Narrative: SHERRI LOGAN, is a 19 F who presents with abdominal pain. The patient reports her abdominal pain is improved this morning. She reports the pain was in the right upper quadrant. She denies nausea or vomiting or fevers or chills. [facility] Medical History (Updated 12/03/24 @ 23:45 by Noemí March) Depression Anxiety Physical exam, pre-employment Home Medications ?Medication ?Instructions ?Recorded ?Last Taken ?Type methocarbamol 500 mg tablet 1,000 mg (2 x 500 mg) PO 4 X/DAY 11/29/24 Unknown Rx PRN Muscle pain/spasm #56 tabs oxycodone-acetaminophen 5 mg-325 1 tab PO Q6H PRN pain 3 days #12 11/29/24 Unknown Rx mg tablet (Endocet) tabs Allergy/AdvReac Type Severity Reaction Status Date / Time No Known Allergies Allergy Verified 11/29/24 21:45 Social History Smoking Status: Former smoker Physical Exam Const alert and oriented x3 HEENT normocephalic Lymph Lymphatic: no lymphadenopathy noted Resp normal respiratory effort Cardio Rate: regular rate Rhythm: regular rhythm GI soft to palpation Palpation: tender Lab / Micro Data 12/04/24 06:23 12/04/24 06:23 Labs: Laboratory Results - last 24 hr 12/03/24 17:14: WBC 6.6, RBC 4.61, Hgb 13.0, Hct 40.1, MCV 87.0, MCH 28.2, MCHC 32.4, RDW Std Deviation 44.7 H, RDW Coeff of Keith 14.0, Plt Count 268, MPV 10.1, Immature Gran % (Auto) 0.200, Neut % (Auto) 66.8, Lymph % (Auto) 20.5, [place] % (Auto) 9.5, Eos % (Auto) 2.4, Baso % (Auto) 0.6, Absolute Neuts (auto) 4.4, Absolute Lymphs (auto) 1.34, Nucleated RBC % 0, Sodium 133, Potassium 4.4, Chloride 104, Carbon Dioxide 16.9 L, Anion Gap 13, BUN 11, Creatinine 0.71, Estim Creat Clear Calc 169.90, Est GFR (MDRD) Non-Af 125, BUN/Creatinine Ratio 14.8, Glucose 93, Calcium 9.0, Magnesium 2.0, Total Bilirubin 2.74 H, AST 159 H, ALT 285 H, Alkaline Phosphatase 194 H, Total Protein 6.9, Albumin 3.4 L, Globulin 3.5, Albumin/Globulin Ratio 1.0, Lipase 17, Serum , Qual NEGATIVE 12/03/24 17:35: Urine Color Lyn, Urine Clarity Clear, Urine pH 6.5, Ur Specific [place] 1.015, Urine Protein 30 H, Urine Glucose (UA) Normal, Urine Ketones Negative, Urine Occult Blood Negative, Urine Nitrite Negative, Urine Bilirubin 3 H, Urine Urobilinogen 4 H, Ur Leukocyte Esterase 25 H, Urine RBC 0 SEEN, Urine WBC 0 SEEN, Ur Squamous Epith Cells 0-5 SEEN, Urine Bacteria 0 SEEN, Urine Mucus 0 SEEN 12/04/24 06:23: WBC 6.3, RBC 4.10 L, Hgb 11.7 L, Hct 35.7 L, MCV 87.1, MCH 28.5, MCHC 32.8, RDW Std Deviation 45.5 H, RDW Coeff of Keith 14.2, Plt Count 278, MPV 10.3, Immature Gran % (Auto) 0.200, Neut % (Auto) 67.1, Lymph % (Auto) 20.9, [place] % (Auto) 8.5, Eos % (Auto) 2.7, Baso % (Auto) 0.6, Absolute Neuts (auto) 4.2, Absolute Lymphs (auto) 1.32, Nucleated RBC % 0, Sodium 139, Potassium 4.2, Chloride 108, Carbon Dioxide 21.2, Anion Gap 10, BUN 8, Creatinine 0.84, Estim Creat Clear Calc 143.66, Est GFR (MDRD) Non-Af 102, BUN/Creatinine Ratio 9.8 L, Glucose 90, Calcium 8.9, Phosphorus 3.7, Total Bilirubin 3.30 H, AST 141 H, ALT 267 H, Alkaline Phosphatase 192 H, Total Protein 6.3, Albumin 3.5, Globulin 2.9, Albumin/Globulin Ratio 1.2, TSH 1.800 Imaging Radiology Impression Abdomen Ultrasound 12/03/24 18:09 IMPRESSION: 1. Cholelithiasis with gallbladder distention and mild generalized wall thickening/edema. Mildly dilated common bile duct measuring 1 cm. Findings likely indicate acute cholecystitis. 2. Mild diffuse hepatic steatosis. Reading Location: [facility] Abdomen/Pelvis CT 12/03/24 18:17 IMPRESSION: 1. Cholelithiasis with CT evidence of acute cholecystitis in correlation with findings seen on ultrasound. 2. Diffuse bladder wall thickening may represent cystitis, please correlate with urinalysis. Reading Location: [facility]
--- NOTE | 2024-12-04 09:50 | CASEMGMT ---
RN CM Face to Face with patient for initial transition planning/care coordination assessment. RN CM introduced self and role at [facility]. Patient lying in bed, alert and oriented, boyfriend at bedside. Patient willing to participate in assessment and is able to answer all questions appropriately. Care providers, pharmacy, and demographics verified. Strata: 1 PCP: None, PCP list provided, states she completed intake form for Dr. Mays's office but has not schedule appt. Specialists: none Preferred Pharmacy: [facility] Insurance: [facility] Prescription Benefit: yes Living Will/HPOA: none LNOK: mother Living Arrangements: Patient lives with boyfriend in a 2nd floor apartment. Patient is independent and able to ambulate stairs. Transportation: self, mother DME/HHC: Patient denies DME in the home. No previous HHC or SNF Patient wishes to discharge home, denies need at discharge. Patient states she has no further needs or concerns at this time. CM to follow for discharge planning needs that may arise. Disposition Plan: Patient to discharge home with family support and follow-up plans in place. Rimma RODRIGUEZ, RN, CM
--- NOTE | 2024-12-04 13:17 | PCM.PRE.AN2 ---
ASA Classification* ASA Classification ASA Classification: 2 and E Assessment & Plan Anesthesia* Anesthesia Assessment Anesthesia Assessment: Discussed sedation and/or anesthesia options, risks, benefits, and alternatives with patient/parents/legal guardian/POA. Questions invited. The patient/parents/legal guardian/POA seems to understand and agrees to proceed with anesthesia plan. Reviewed the physical assessment, medical history, allergy history and patient home medications list prior to surgery/procedure/anesthetic and documented any changes. Performed airway and anesthesia risk assessments. Anesthesia Type Anesthesia Type: General History Source History Obtained from:: Patient and Chart Anesthesia Focused Assessment* Temperature: 98.6 F Pulse Rate: 59 Blood Pressure: 130/83 Respiratory Rate: 16 Pulse Ox: 99 Oxygen Delivery Method: Room Air Airway Assessment Mouth opens: >3 cm Mallampati Score: II Labs Anesthesia Preop lab: CBC WBC 6.3 K/mm3 (4.4-11.0) 12/04/24 06:23 12/04/24 RBC 4.10 M/mm3 (4.2-5.4) L 12/04/24 06:23 12/04/24 Hgb 11.7 g/dL (12.0-15.0) L 12/04/24 06:23 12/04/24 Hct 35.7 % (37-47) L 12/04/24 06:23 12/04/24 Plt Count 278 K/mm3 (150-450) 12/04/24 06:23 12/04/24 CHEMISTRY Potassium 4.2 mmol/L (3.3-5.1) 12/04/24 06:23 12/04/24 Sodium 139 mmol/L (133-145) 12/04/24 06:23 12/04/24 Magnesium 2.0 mg/dL (1.5-2.2) 12/03/24 17:14 12/03/24 Phosphorus 3.7 mg/dL (2.7-4.5) 12/04/24 06:23 12/04/24 BUN 8 mg/dL (4-19) 12/04/24 06:23 12/04/24 Creatinine 0.84 mg/dL (0.70-1.20) 12/04/24 06:23 12/04/24 Glucose 90 mg/dL (70-99) 12/04/24 06:23 12/04/24 TSH 1.800 uIU/mL (0.300-4.200) 12/04/24 06:23 12/04/24 COAG Pre-Assessment Diagnosis/Proposed Procedure Planned Operative Procedure(s): ERCP Anesthesia History 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 When Was Last Pacemaker Check QUESTION #4 FULL TEXT: You/Your Family Experience fever (hyperthermia) with Anesthesia Last Oral Intake Last Oral intake: Last Oral Intake NPO since Meds taken in AM with sips of water? 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 Female HX of Motion Sickness HX of N/V After Surgery Non-Smoker Duration of Surgery greater than 60 minutes Number of Risk Factors PONV Score Height & Weight Height & Weight: Anesthesia: Height & Weight Height 5 ft 8 in 12/04/24 10:23 Weight: 117.1 kg 12/04/24 10:23 Body Mass Index (BMI) 39.1 12/04/24 06:00 Respiratory Assessment Respiratory Assessment - live truck operator: Respiratory Tract Infection Hx - live truck operator Hx Respiratory Tract Infection STOP Sleep Apnea STOP Sleep Apnea - live truck operator: STOP Sleep Apnea - live truck operator Hx Hypertension No 12/03/24 23:41 Hx Sleep Apnea No 12/03/24 23:41 CPAP BIPAP Do you snore loudly (louder Yes 12/03/24 23:41 than talking or can be heard Do you often feel tired/ No 12/03/24 23:41 fatigued/ sleepy during daytime? Has anyone observed you stop No 12/03/24 23:41 breathing during sleep? STOP Results Negative 12/03/24 23:41 QUESTION #5 FULL TEXT : Do you snore loudly (louder than talking or can be heard through closed doors)? 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 Specify any problems Hx of Preganancy in last 3 No 12/03/24 23:41 Months Nurse Filling Out Transfusion DREDICK 12/03/24 23:41 & Questions: Date: 12/03/24 12/03/24 23:41 Time: 23:42 12/03/24 23:41 Patient unable to answer at this time (ie. confused, unrespo /Reproduction History /Reproductive History - live truck operator: /Reproductive Hx- live truck operator Hx Now No 12/03/24 23:41 Gestational Age (in weeks): EDC: Hx Hx Para Hx Section SAB No 12/03/24 23:41 Active Medications Active Medications: Current Medications Generic Name Dose Route Start Last Admin Trade Name Freq PRN Reason Stop Dose Admin Piperacillin Sod/Tazobactam 50 mls @ 12.5 mls/hr 12/04/24 06:00 12/04/24 09:54 Sod 3.375 gm/ Sodium Chloride IV Infused Q8 STEFFEN Infusion Pantoprazole Sodium 40 mg/ 100 mls @ 330 mls/hr 12/03/24 22:13 12/04/24 01:08 Sodium Chloride IV Infused 2200 STEFFEN Infusion Sodium Chloride 250 mls @ 15 mls/hr 12/03/24 23:36 IV .[id number] PRN Saline Flush Sodium Chloride 250 mls @ 15 mls/hr 12/03/24 23:36 IV .[id number] PRN Additional IVPB Infusion Ketorolac Tromethamine 15 mg 12/03/24 23:35 12/04/24 11:21 Ketorolac 15 Mg/Ml Vial IV 12/08/24 23:36 15 mg TID PRN PRN Administration Pain 1-5/10 or Fever Morphine Sulfate 2 mg 12/03/24 23:35 Morphine 2 Mg/Ml Syringe IV Q4H PRN PRN Pain Score 6-10 Ondansetron HCl 4 mg 12/03/24 23:35 Ondansetron 4 Mg/2 Ml Vial IV Q4H PRN PRN NAUSEA/VOMITING Sodium Chloride 10 - 40 ml 12/03/24 23:36 0.9% Saline Lock 10 Ml Syringe IV UD PRN SALINE FLUSH [facility] Medical History Depression Anxiety Physical exam, pre-employment Home Medications ?Medication ?Instructions ?Recorded ?Last Taken ?Type methocarbamol 500 mg tablet 1,000 mg (2 x 500 mg) PO 4X/DAY 11/29/24 Unknown Rx PRN Muscle pain/spasm #56 tabs oxycodone-acetaminophen 5 mg-325 1 tab PO Q6H PRN pain 3 days #12 11/29/24 Unknown Rx mg tablet (Endocet) tabs Allergy/AdvReac Type Severity Reaction Status Date / Time No Known Allergies Allergy Verified 11/29/24 21:45 Social History Smoking Status: Former smoker Review of Systems (Anesthesia) ROS Narrative System reviewed and no additional complaints, except as documented.
--- NOTE | 2024-12-04 13:27 | CON.PCM.GI_ITS ---
HPI Consult Data Date of Consult: 12/04/24 HPI Narrative Reason for Consultation: Obstructive jaundice and choledocholithiasis HPI Narrative: SHERRI LOGAN, is a 19-year-old female with no past medical history presents with a few days of generalized abdominal pain and midline lumbar pain. Patient was seen here on 11/29 and had workup for the back pain with negative lumbar x- rays. She was prescribed oxycodone and methocarbamol which have somewhat helped the pain. She reports she continues to have generalized abdominal pain with occasional nausea and vomiting. No hematemesis. Last bowel movement was a few days ago. No urinary symptoms. No history of abdominal surgeries. She drinks socially about twice a year but nothing recent. Denies smoking. Total Bilirubin 2.74 H, AST 159 H, ALT 285 H, Alkaline Phosphatase 194 H Total Bilirubin 3.30 H, AST 141 H, ALT 267 H, Alkaline Phosphatase [address] scan of the abdomen pelvis : liver: Normal-size. Mild diffuse hepatic steatosis. Mild intrahepatic bile duct dilatation. No mass. Gallbladder: Several calcified gallstones with mild gallbladder wall thickening and surrounding fluid. Mild dilatation of the common bile duct measuring up to 11 mm. Findings may suggest acute cholecystitis. No definite choledocholithiasis. Spleen: Normal size. Pancreas: Normal size without evidence of mass surrounding inflammation or ductal dilation. [facility] Medical History Depression Anxiety Physical exam, pre-employment Home Medications ?Medication ?Instructions ?Recorded ?Last Taken ?Type methocarbamol 500 mg tablet 1,000 mg (2 x 500 mg) PO 4 X/DAY 11/29/24 Unknown Rx PRN Muscle pain/spasm #56 tabs oxycodone-acetaminophen 5 mg-325 1 tab PO Q6H PRN pain 3 days #12 11/29/24 Unknown Rx mg tablet (Endocet) tabs Allergy/AdvReac Type Severity Reaction Status Date / Time No Known Allergies Allergy Verified 11/29/24 21:45 Social History Smoking Status: Former smoker ROS Constitutional Constitutional: Denies fatigue, fever(s), poor appetite, weight gain or weight loss Gastrointestinal Gastrointestinal: Denies belching, bloating, change in bowel habits, change in stool character, chewing difficulty, coffee ground emesis, constipation, cramping, diarrhea, dyspepsia, dysphagia, early satiety, excessive flatus, fecal incontinence, heartburn, hematemesis, hematochezia, hemorrhoids, loose stools, melena, nausea, odynophagia, rectal bleeding, tenesmus, vomiting or weight changes Physical Exam Const alert, oriented x3, no apparent distress and healthy appearing General Appearance: cooperative GI normal to inspection, nondistended, normoactive bowel sounds, soft to palpation, non-tender and non-distended Percussion: normal to percussion Rectal Exam: deferred Lab / Micro Data 12/04/24 06:23 12/04/24 06:23 Labs: Laboratory Results - last 24 hr 12/03/24 17:14: WBC 6.6, RBC 4.61, Hgb 13.0, Hct 40.1, MCV 87.0, MCH 28.2, MCHC 32.4, RDW Std Deviation 44.7 H, RDW Coeff of Keith 14.0, Plt Count 268, MPV 10.1, Immature Gran % (Auto) 0.200, Neut % (Auto) 66.8, Lymph % (Auto) 20.5, [place] % (Auto) 9.5, Eos % (Auto) 2.4, Baso % (Auto) 0.6, Absolute Neuts (auto) 4.4, Absolute Lymphs (auto) 1.34, Nucleated RBC % 0, Sodium 133, Potassium 4.4, Chloride 104, Carbon Dioxide 16.9 L, Anion Gap 13, BUN 11, Creatinine 0.71, Estim Creat Clear Calc 169.90, Est GFR (MDRD) Non-Af 125, BUN/Creatinine Ratio 14.8, Glucose 93, Calcium 9.0, Magnesium 2.0, Total Bilirubin 2.74 H, AST 159 H, ALT 285 H, Alkaline Phosphatase 194 H, Total Protein 6.9, Albumin 3.4 L, Globulin 3.5, Albumin/Globulin Ratio 1.0, Lipase 17, Serum , Qual NEGATIVE 12/03/24 17:35: Urine Color Lyn, Urine Clarity Clear, Urine pH 6.5, Ur Specific [place] 1.015, Urine Protein 30 H, Urine Glucose (UA) Normal, Urine Ketones Negative, Urine Occult Blood Negative, Urine Nitrite Negative, Urine Bilirubin 3 H, Urine Urobilinogen 4 H, Ur Leukocyte Esterase 25 H, Urine RBC 0 SEEN, Urine WBC 0 SEEN, Ur Squamous Epith Cells 0-5 SEEN, Urine Bacteria 0 SEEN, Urine Mucus 0 SEEN 12/04/24 06:23: WBC 6.3, RBC 4.10 L, Hgb 11.7 L, Hct 35.7 L, MCV 87.1, MCH 28.5, MCHC 32.8, RDW Std Deviation 45.5 H, RDW Coeff of Keith 14.2, Plt Count 278, MPV 10.3, Immature Gran % (Auto) 0.200, Neut % (Auto) 67.1, Lymph % (Auto) 20.9, [place] % (Auto) 8.5, Eos % (Auto) 2.7, Baso % (Auto) 0.6, Absolute Neuts (auto) 4.2, Absolute Lymphs (auto) 1.32, Nucleated RBC % 0, Sodium 139, Potassium 4.2, Chloride 108, Carbon Dioxide 21.2, Anion Gap 10, BUN 8, Creatinine 0.84, Estim Creat Clear Calc 143.66, Est GFR (MDRD) Non-Af 102, BUN/Creatinine Ratio 9.8 L, Glucose 90, Calcium 8.9, Phosphorus 3.7, Total Bilirubin 3.30 H, AST 141 H, ALT 267 H, Alkaline Phosphatase 192 H, Total Protein 6.3, Albumin 3.5, Globulin 2.9, Albumin/Globulin Ratio 1.2, TSH 1.800 Imaging Radiology Impression Abdomen Ultrasound 12/03/24 18:09 IMPRESSION: 1. Cholelithiasis with gallbladder distention and mild generalized wall thickening/edema. Mildly dilated common bile duct measuring 1 cm. Findings likely indicate acute cholecystitis. 2. Mild diffuse hepatic steatosis. Reading Location: [id number] Abdomen/Pelvis CT 12/03/24 18:17 IMPRESSION: 1. Cholelithiasis with CT evidence of acute cholecystitis in correlation with findings seen on ultrasound. 2. Diffuse bladder wall thickening may represent cystitis, please correlate with urinalysis. Reading [facility] Assessment & Plan Assessment/Plan (1) Nausea and vomiting: QUALIFIERS: Vomiting type: bilious vomiting Qualified Code(s): R 11.14 - Bilious vomiting (2) Hyperbilirubinemia: (3) Choledocholithiasis: (4) Transaminitis: (5) Abdominal pain: QUALIFIERS: Abdominal location: generalized Qualified Code(s): R 10.84 - Generalized abdominal pain PLAN: 19-year-old patient presents with right upper quadrant pain, jaundice, and a dilated common bile duct with gallstones in the gallbladder. This presentation strongly suggests choledocholithiasis, which can lead to complications such as cholangitis.The patient reports a several-hour history of sharp, crampy pain in the RUQ, radiating to the back. This is similar to a previous, less intense episode a few months ago. He notes recent yellowing of the eyes and skin, as well as dark urine and light-colored stools. She currently denies fever, chills, nausea, or vomiting.she is well-appearing, jaundiced sclera and skin. She has tenderness to palpation in the right upper quadrant. No rebound tenderness or guarding. Allen's sign not specifically mentioned but tenderness suggests potential gallbladder inflammation. CT scan of the abdomen reveals a dilated common bile duct and gallstones within the gallbladder. The patient's presentation with RUQ pain, jaundice, and ultrasound findings of a dilated CBD and gallstones strongly indicates choledocholithiasis, likely complicated by biliary obstruction. The differential diagnosis includes: * Choledocholithiasis with biliary obstruction * Acute cholecystitis * Acute cholangitis (infection of the bile ducts), though fever and chills are absent at this time. * Gallstone pancreatitis * Treatment: * Pain management with intravenous fluids, antibiotics and analgesics. * Fasting to avoid endogenous cholecystokinin release. * Endoscopic Retrograde Cholangiopancreatography (ERCP) with sphincterotomy and stone extraction is a common treatment for CBD stones. * Surgeon was consulted for laparoscopic cholecystectomy ,inpatient versus outpatient. Charges/Coding Visit Charges Inpatient E&M: 73225 Init Hosp L3
[2024-12-04] MEDS: Lidocaine 1% (5 ml sdv) 5 ML Vial IV (13:55)
[2024-12-04] MEDS: Midazolam 2 MG/2 ML Syringe IV (13:55)
--- NOTE | 2024-12-04 14:03 | RAD_ITS ---
PROCEDURE: ERCP BILIARY/PANCREAS 12/04/2024 REASON FOR EXAM: PAIN TECHNIQUE: ERCP BILIARY/PANCREAS Intraoperative fluoroscopic views. Fluoroscopy time 74 seconds. Radiation dose 25.96 mGy. COMPARISON: CT scan on 12/03/2024. FINDINGS: Nonvisualization of the gallbladder. Dilated common bile duct. Balloon sweep was performed. CBD stent has been inserted in good position. No contrast leakage is noted. RAD/ERCP Biliary/Pancreas IMPRESSION: Nonvisualization of the gallbladder. Dilated common bile duct. Balloon sweep was performed. CBD stent has been inserted in good position. No contrast leakage is noted. Reading Location: [facility]
[2024-12-04] MEDS: fentaNYL 100 MCG/2 ML Ampul 200 MCG IV (14:12)
--- NOTE | 2024-12-04 14:44 | OP.PROVAT_ITS ---
12/04/2024 No Primary Care Physician Re : ERCP procedure for Luc[facility] Phys[facility] This procedure was performed on Wednesday, December 04, 2024. My impressions and recommendations are as follows: Impressions : - The biliary system were dilated, with a stone causing an obstruction. - Choledocholithiasis was found. Complete removal was accomplished by biliary sphincterotomy and balloon extraction. - A biliary sphincterotomy was performed. - The biliary tree was swept. - One temporary stent was placed into the common bile duct. Recommendations : My findings are described in the full procedure note, which is enclosed. If I can be of further assistance, please feel free to contact me at . Sincerely, Michael White, 12/04/2024 2:42:51 PM This report has been signed electronically.
--- NOTE | 2024-12-04 14:44 | OP.ERCP_ITS ---
Patient Name: Lucía Mays Procedure Date: 12/04/2024 1:20 PM Date of : 2005 Age: 19 Procedure: ERCP Indications: Common bile duct stone(s), Suspected ascending cholangitis, Jaundice, Elevated liver enzymes Providers: Michael White DO Medicines: Monitored Anesthesia Care Patient Profile: This is a 19 year old female. Refer to note in patient chart for documentation of history and physical. Patient has symptoms of acute abdominal cramping, acute right upper quadrant abdominal pain, acute jaundice and acute nausea. This patient has no history of previous ERCP. This patient has no history of surgical alteration of the upper digestive tract anatomy. Complications: No immediate complications. Procedure: Pre-Anesthesia Assessment: - Prior to the procedure, a History and Physical was performed, and patient medications and allergies were reviewed. The patient is competent. The risks and benefits of the procedure and the sedation options and risks were discussed with the patient. All questions were answered and informed consent was obtained. Patient identification and proposed procedure were verified by the physician in the pre-procedure area. Mental Status Examination: alert and oriented. Airway Examination: normal oropharyngeal airway and neck mobility. Respiratory Examination: clear to auscultation. CV Examination: normal. Prophylactic Antibiotics: The patient does not require prophylactic antibiotics. Prior Anticoagulants: The patient has taken no anticoagulant or antiplatelet agents except for NSAID medication. ASA Grade Assessment: II - A patient with mild systemic disease. After reviewing the risks and benefits, the patient was deemed in satisfactory condition to undergo the procedure. The anesthesia plan was to use monitored anesthesia care (MAC). Immediately prior to administration of medications, the patient was re-assessed for adequacy to receive sedatives. The heart rate, respiratory rate, oxygen saturations, blood pressure, adequacy of pulmonary ventilation, and response to care were monitored throughout the procedure. The physical status of the patient was re-assessed after the procedure. After obtaining informed consent, the scope was passed under direct vision. Throughout the procedure, the patient's blood pressure, pulse, and oxygen saturations were monitored continuously. The Duodenoscope was introduced through the mouth, and advanced to the duodenum and used to inject contrast into the bile duct and ventral pancreatic duct. The ERCP was accomplished without difficulty. The patient tolerated the procedure well. Scope In: 2:08:50 PM Scope Out: 2:30:26 PM Total Procedure Duration Time 0 hours 21 minutes 36 seconds Findings: The rubber compounder mixer film was normal. The esophagus was successfully intubated under direct vision. The scope was advanced to a normal major papilla in the descending duodenum without detailed examination of the pharynx, larynx and associated structures, and upper GI tract. The upper GI tract was grossly normal. The ventral pancreatic duct was deeply cannulated with the short-nosed traction sphincterotome. Contrast was injected. I personally interpreted the pancreatic duct images. Ductal flow of contrast was adequate. Image quality was adequate. Contrast extended to the pancreatic duct. Opacification of the entire pancreatic ductal system was successful. The maximum diameter of the ducts was 2 mm. The entire opacified area was normal. A long 0.025 inch Jagwire was passed into the ventral pancreatic duct. A long 0.025 inch Jagwire was passed into the biliary tree. The short-nosed traction sphincterotome was passed over the guidewire and the bile duct was then deeply cannulated. Contrast was injected. Opacification of the entire biliary tree was successful. The maximum diameter of the ducts was 10 mm. The middle third of the main bile duct and upper third of the main bile duct contained three stones, the largest of which was 6 mm in diameter. The entire opacified area was diffusely dilated, with a stone causing an obstruction. The largest diameter was 12 mm. A 5 mm biliary sphincterotomy was made with a monofilament traction (standard) sphincterotome using ERBE electrocautery. There was no post-sphincterotomy bleeding. The biliary tree was swept with a 12 mm balloon starting at the upper third of the main bile duct, middle third of the main bile duct, lower third of the main duct, bifurcation, left intrahepatic duct(s), left main hepatic duct, right intrahepatic duct(s) and right main hepatic duct. Sludge was swept from the duct. All stones were removed. One 11.5 Fr by 7 cm temporary stent was placed 5 cm into the common bile duct. Bile flowed through the stent. The stent was in good position. Impression: - The biliary system were dilated, with a stone causing an obstruction. - Choledocholithiasis was found. Complete removal was accomplished by biliary sphincterotomy and balloon extraction. - A biliary sphincterotomy was performed. - The biliary tree was swept. - One temporary stent was placed into the common bile duct. Procedure Code(s): --- Professional --- 84210, Endoscopic retrograde cholangiopancreatography (ERCP); with placement of endoscopic stent into biliary or pancreatic duct, including pre- and post-dilation and guide wire passage, when performed, including sphincterotomy, when performed, each stent 60312, Endoscopic retrograde cholangiopancreatography (ERCP); with removal of calculi/debris from biliary/pancreatic duct(s) 63299, 26, Endoscopic catheterization of the pancreatic ductal system, radiological supervision and interpretation CPT copyright 2021 [employer]. All rights reserved. The codes documented in this report are preliminary and upon health information coder review may be revised to meet current compliance requirements. Michael White DO 12/04/2024 2:42:51 PM This report has been signed electronically. Number of Addenda: 0 Note Initiated On: 12/04/2024 1:20 PM
--- NOTE | 2024-12-04 14:52 | PCM.POST.ANE ---
Anesthesia: Postop Eval I Current Vital Signs Temperature: 98.5 F Pulse Rate: 90 Blood Pressure: 127/80 Respiratory Rate: 16 Pulse Ox: 97 Oxygen Delivery Method: Room Air Assessment Airway patent: Yes Spontaneous unlabored respirations: Yes Mental status: Awake and Calm nausea: No Vomiting: No Anesthesia Complication: No Fluid Hydration Crystalloid volume administer (ml): 800 Total IV fluid infused: 800 Progress Note Anesthesia document: Postop Eval 1 completed: Yes
[2024-12-04] MEDS: Lactated Ringers 1,000 ML 999 ML IV (15:08)
[2024-12-04] MEDS: Lactated Ringers 1,000 ML 250 ML IV (15:52)
--- NOTE | 2024-12-04 16:34 | PCM.POSTANE2 ---
Anesthesia Postop Eval I Sum Postop Eval Completion status Anesthesia document: Postop Eval 1 completed: Yes Anesthesia Postop Eval I Summary Anesthesia Postop Eval I Summary: Anesthesia Postop Eval I: Assessment Summary Airway patent Yes 12/04/24 14:53 Spontaneous unlabored Yes 12/04/24 14:53 respirations Mental status Awake,Calm 12/04/24 14:53 nausea No 12/04/24 14:53 Vomiting No 12/04/24 14:53 Anesthesia Postop Eval I: Fluid Summary Crystalloid volume administer 800 12/04/24 14:53 (ml) Colloids volume administered ( ml) Blood Product volume administered (ml) Total IV fluid infused 800 12/04/24 14:53 Anesthesia Postop Eval I: Summary Notes Anesthesia Complication No 12/04/24 14:53 Anesthesia Complication Comment: Post-operative progress note Anesthesia: Postop Eval II Evaluation Mental status: Awake and Calm Pain Level: 1 nausea: No Vomiting: No Complications Anesthesia Complication: No
--- NOTE | 2024-12-04 18:03 | PN.HOSP_ITS ---
Reason for Visit Chief Complaint: Abdominal Pain, Nausea and Vomiting. Subjective Subjective Patient was seen and examined today, she states she is still having mid abdominal pain. I talked briefly with gastroenterology, they are not able to perform an ERCP until 12/06/2024. Objective Data Objective Data Vital Signs: Vital Signs Temp Pulse Resp BP Pulse Ox O2 Del Method 98.7 F 54 L 16 134/85 H 99 Room Air 12/04/24 17:30 12/04/24 17:30 12/04/24 17:30 12/04/24 17:30 12/04/24 17:30 12/04/24 17:30 Oxygen Delivery Method Room Air Weight: 117.1 kg Body Mass Index (BMI) 39.1 Intake & Output: Intake and Output for Last 24 Hours 12/02/24 12/03/24 12/04/24 23:59 23:59 23:59 Intake Total 100 / 100 3070 / 3070 Output Total 600 / 600 Balance 100 / 100 2470 / 2470 Lab / Micro Data 12/04/24 06:23 12/04/24 06:23 Labs: Laboratory Results - last 24 hr 12/03/24 17:14: Magnesium 2.0 12/03/24 17:35: Urine Color Lyn, Urine Clarity Clear, Urine pH 6.5, Ur Specific [place] 1.015, Urine Protein 30 H, Urine Glucose (UA) Normal, Urine Ketones Negative, Urine Occult Blood Negative, Urine Nitrite Negative, Urine Bilirubin 3 H, Urine Urobilinogen 4 H, Ur Leukocyte Esterase 25 H, Urine RBC 0 SEEN, Urine WBC 0 SEEN, Ur Squamous Epith Cells 0-5 SEEN, Urine Bacteria 0 SEEN, Urine Mucus 0 SEEN 12/04/24 06:23: WBC 6.3, RBC 4.10 L, Hgb 11.7 L, Hct 35.7 L, MCV 87.1, MCH 28.5, MCHC 32.8, RDW Std Deviation 45.5 H, RDW Coeff of Keith 14.2, Plt Count 278, MPV 10.3, Immature Gran % (Auto) 0.200, Neut % (Auto) 67.1, Lymph % (Auto) 20.9, [place] % (Auto) 8.5, Eos % (Auto) 2.7, Baso % (Auto) 0.6, Absolute Neuts (auto) 4.2, Absolute Lymphs (auto) 1.32, Nucleated RBC % 0, Sodium 139, Potassium 4.2, Chloride 108, Carbon Dioxide 21.2, Anion Gap 10, BUN 8, Creatinine 0.84, Estim Creat Clear Calc 143.66, Est GFR (MDRD) Non-Af 102, BUN/Creatinine Ratio 9.8 L, Glucose 90, Calcium 8.9, Phosphorus 3.7, Total Bilirubin 3.30 H, AST 141 H, ALT 267 H, Alkaline Phosphatase 192 H, Total Protein 6.3, Albumin 3.5, Globulin 2.9, Albumin/Globulin Ratio 1.2, TSH 1.800 Radiography Diagnostic Testing: Radiology Impression Abdomen Ultrasound 12/03/24 18:09 IMPRESSION: 1. Cholelithiasis with gallbladder distention and mild generalized wall thickening/edema. Mildly dilated common bile duct measuring 1 cm. Findings likely indicate acute cholecystitis. 2. Mild diffuse hepatic steatosis. Reading Location: [facility] Abdomen/Pelvis CT 12/03/24 18:17 IMPRESSION: 1. Cholelithiasis with CT evidence of acute cholecystitis in correlation with findings seen on ultrasound. 2. Diffuse bladder wall thickening may represent cystitis, please correlate with urinalysis. Reading Location: [facility] Physical Exam Const alert, oriented x3 and no apparent distress General Appearance: cooperative, well kempt and well developed Orientation / Consciousness: awake, oriented to person, oriented to place and oriented to time HEENT normocephalic, head/scalp atraumatic and moist oral mucous membranes Eyes PERRL, EOMs intact bilaterally and conjunctivae normal Neck supple, no JVD, thyroid normal and no carotid bruits General: trachea midline Resp normal respiratory effort, no retractions, no use of accessory muscles and clear to auscultation bilaterally Auscultation: Negative for rales, rhonchi or wheezes Cardio regular rate, regular rhythm, S1 normal heart sound, S2 normal heart sound, no murmurs, no rub and no gallops GI normal to inspection, nondistended, normoactive bowel sounds, soft to palpation and non-distended GI Narrative: There is some mid abdominal tenderness noted to palpation Extremity no clubbing, cyanosis or edema Skin no rashes or lesions noted General Skin Exam: no breakdown Neuro oriented x3, CN's II-XII intact bilaterally, moves all extremities, no focal motor deficits and no sensory deficits noted Sensorium / Orientation: awake and alert Speech: speech normal Psych affect normal Assessment & Plan Assessment/Plan (1) Nausea and vomiting: QUALIFIERS: Vomiting type: bilious vomiting Qualified Code(s): R 11.14 - Bilious vomiting PLAN: Plan 1. Acute cholecystitis-again patient will undergo an ERCP on 12/06/2024, I did talk with general surgery today and they stated that they probably would not be able to do a cholecystectomy until 12/07/2024 #2 choledocholithiasis-again ERCP will be performed on 12/06/2024 #3 nausea and vomiting secondary to #1-patient will remain n.p.o., IV fluids will be administered Total clinical time spent by myself addressing the patient's medical issues, reviewing all of her data, and collaborating with patient's care team: 35 minutes Charges/Coding Visit Charges Inpatient E&M: 59778 Subs Hosp L2
[2024-12-04] MEDS: Pantoprazole Sodium 40 MG in 0.9% Normal Saline (100mL MB+) 100 ML 330 MG IV (21:04)
[2024-12-04] MEDS: 0.9% Normal Saline (1000mL) 1,000 ML 125 ML IV (21:04)
[2024-12-05 02:00] VITALS: BP 134/79; PULSE 58; RESP 16; TEMP 36.7; O2SAT 97
[2024-12-05] MEDS: 0.9% Normal Saline (1000mL) 1,000 ML 125 ML IV ×2 (05:12→13:19)
[2024-12-05] MEDS: Piperacil/Tazobactam 3.375 GM in 0.9% Normal Saline (50mL MB+) 50 ML IV ×3 (05:12→22:41)
[2024-12-05 05:18] VITALS: BP 142/84; PULSE 42; RESP 16; TEMP 36.4; O2SAT 99
[2024-12-05 06:00] VITALS: BMI 39.9
[2024-12-05] MEDS: 0.9% Saline Lock 10 ML Syringe IV (07:38)
[2024-12-05 07:55] VITALS: O2SAT 95
--- NOTE | 2024-12-05 08:34 | PN.SURG_ITS ---
Subjective Subjective Patient is complaining of some abdominal pain radiating to her back. Unsure if this is pancreatitis after ERCP or from her gallbladder. She denies nausea or vomiting or fevers or chills. Objective Data Objective Data Vital Signs: Vital Signs Temp Pulse Resp BP Pulse Ox O2 Del Method 97.6 F L 42 L 16 142/84 H 95 Room Air 12/05/24 05:18 12/05/24 05:18 12/05/24 05:18 12/05/24 05:18 12/05/24 07:55 12/05/24 07:55 Oxygen Delivery Method Room Air Weight: 263 lb 3.711 oz Body Mass Index (BMI) 39.9 Intake & Output: Intake and Output for Last 24 Hours 12/03/24 12/04/24 12/05/24 23:59 23:59 23:59 Intake Total 100 / 100 4220 / 4520 1650 / 1650 Output Total 600 / 600 Balance 100 / 100 3620 / 3920 1650 / 1650 Lab / Micro Data 12/04/24 06:23 12/04/24 06:23 Labs: Laboratory Results - last 24 hr 12/05/24 04:54: Phosphorus 3.8 Physical Exam Const oriented x3 and no apparent distress Resp normal respiratory effort GI soft to palpation Palpation: tender epigastric Extremity normal to inspection Assessment & Plan Assessment/Plan (1) Choledocholithiasis: PLAN: Patient had ERCP yesterday with removal of 3 stones and stent placement. The patient is having some epigastric pain radiating to the back unsure if this is post ERCP pancreatitis. I will order a lipase. LFTs are pending. (2) Acute cholecystitis: PLAN: The patient also had thickening of the gallbladder wall with a stone in the gallbladder. I discussed laparoscopic cholecystectomy with the patient in detail. I discussed the procedure in detail with the patient. I discussed the risks, benefits, and alternatives of the procedure. I discussed the risks including but not limited to bleeding, infection, injury to surrounding organs such as the liver, bile duct, bowels. I did discuss the possibility of having to convert to an open procedure as well as the possibility that if any injuries occurred this may necessitate further surgery at a tertiary care center. Plan for n.p.o. after midnight and I will take her tomorrow for laparoscopic cholecystectomy. Nigel Marshall MD Pager: [facility] [address] [place] [address], [facility] [address] [place] [address] Office:
[2024-12-05 08:55] LABS: Lipase 155 U/L (13-75)
[2024-12-05] MEDS: Magnesium Citrate 300 ML 150 ML PO (10:09)
[2024-12-05 11:00] VITALS: BP 136/77; PULSE 69; RESP 18; TEMP 36.9; O2SAT 98
[2024-12-05 14:59] VITALS: BP 131/91; PULSE 66; RESP 18; TEMP 36.8; O2SAT 96
--- NOTE | 2024-12-05 18:02 | PN.HOSP_ITS ---
Reason for Visit Chief Complaint: Abdominal Pain, Nausea and Vomiting. Subjective Subjective Patient was seen and examined today, she is scheduled to have a laparoscopic cholecystectomy tomorrow, she did not have any specific questions about the procedure. Objective Data Objective Data Vital Signs: Vital Signs Temp Pulse Resp BP Pulse Ox O2 Del Method 98.3 F 66 18 131/91 H 96 Room Air 12/05/24 14:59 12/05/24 14:59 12/05/24 14:59 12/05/24 14:59 12/05/24 14:59 12/05/24 14:59 Oxygen Delivery Method Room Air Weight: 119.4 kg Body Mass Index (BMI) 39.9 Intake & Output: Intake and Output for Last 24 Hours 12/03/24 12/04/24 12/05/24 23:59 23:59 23:59 Intake Total 100 / 100 4220 / 4520 3300 / 3300 Output Total 600 / 600 Balance 100 / 100 3620 / 3920 3300 / 3300 Lab / Micro Data 12/04/24 06:23 12/04/24 06:23 Labs: Laboratory Results - last 24 hr 12/05/24 04:54: Phosphorus 3.8, Lipase 155 H Physical Exam Const alert, oriented x3, no apparent distress and healthy appearing Constitutional Narrative: Patient has class III obesity General Appearance: cooperative, well kempt and well developed Orientation / Consciousness: awake, oriented to person, oriented to place and oriented to time HEENT normocephalic, head/scalp atraumatic and moist oral mucous membranes Eyes PERRL, EOMs intact bilaterally and conjunctivae normal Neck supple, no JVD, thyroid normal and no carotid bruits General: trachea midline Resp normal respiratory effort and clear to auscultation bilaterally Auscultation: Negative for rales, rhonchi or wheezes Cardio regular rate, regular rhythm, no murmurs, no rub and no gallops GI normal to inspection, nondistended, normoactive bowel sounds, soft to palpation, non-tender and non-distended Extremity no clubbing, cyanosis or edema Skin no rashes or lesions noted General Skin Exam: no breakdown Neuro oriented x3, CN's II-XII intact bilaterally, no focal motor deficits and no sensory deficits noted Sensorium / Orientation: awake and alert Speech: speech normal Psych affect normal Assessment & Plan Assessment/Plan (1) Acute cholecystitis: (2) Nausea and vomiting: QUALIFIERS: Vomiting type: bilious vomiting Qualified Code(s): R 11.14 - Bilious vomiting PLAN: Plan 1. Acute cholecystitis-it is planned for the patient to have a laparoscopic cholecystectomy tomorrow #2 choledocholithiasis-patient underwent an ERCP yesterday with removal of 3 stones #3 nausea and vomiting secondary to #1-patient will remain n.p.o., IV fluids will be administered Total clinical time spent by myself addressing the patient's medical issues, reviewing all of her data, and collaborating with patient's care team: 35 minutes Charges/Coding Visit Charges Inpatient E&M: 53134 Subs Hosp L2
[2024-12-05 20:30] VITALS: BP 142/83; PULSE 72; RESP 18; TEMP 36.9; O2SAT 99
[2024-12-05] MEDS: Pantoprazole Sodium 40 MG in 0.9% Normal Saline (100mL MB+) 100 ML 330 MG IV (22:39)
[2024-12-06] VITALS (11 sets, daily range): BP systolic 124–156; BP diastolic 76–102; PULSE 59–121; RESP 16–20; TEMP 36.9–37.7; O2SAT 93–97; BMI 40.1; BMI 40.3
[2024-12-06] MEDS: 0.9% Normal Saline (1000mL) 1,000 ML 125 ML IV (02:15)
[2024-12-06 05:48] LABS: Hematocrit 31.8 % (37-47); Hemoglobin 10.4 g/dL (12.0-15.0); Immature Granulocytes Count 0.040 X10^3/uL (0.0-0.0); Mean Corp Hgb Conc 32.7 g/dL (32-36); Mean Corpuscular Volume 87.1 fL (81-99); Mean Platelet Vol. 10.3 fl (6.2-12.0); NRBC Flagged by Analyzer 0 % (0-5); Platelet Count 239 K/mm3 (150-450); RBC Distribution Width CV 14.6 % (11.6-14.6); RBC Distribution Width SD 46.3 fl (35.1-43.9); Red Blood Count 3.65 M/mm3 (4.2-5.4); White Blood Count 10.1 K/mm3 (4.4-11.0)
[2024-12-06 05:58] LABS: AST(SGOT) 109 U/L (<=31); Alanine Aminotransfer ALT/SGPT 215 U/L (<=34); Albumin, Serum 3.2 g/dL (3.5-5.0); Alkaline Phosphatase 148 U/L (35-104); Anion Gap 10 (5-15); BUN 9 mg/dL (4-19); BUN/Creat Ratio 12.2 RATIO (10-20); Calcium,Total 8.6 mg/dL (7.6-11.0); Carbon Dioxide 22.5 mmol/L (21.0-32.0); Chloride 108 mmol/L (98-108); Estimated Creatinine Clearance 158.41 ml/min (50-250); Globulin 2.8 g/dL (2.2-4.2); Glucose 95 mg/dL (70-99); Potassium 3.8 mmol/L (3.3-5.1)
[2024-12-06] MEDS: Piperacil/Tazobactam 3.375 GM in 0.9% Normal Saline (50mL MB+) 50 ML IV ×2 (06:12→13:49)
--- NOTE | 2024-12-06 13:05 | PCM.PN.BLA ---
Progress Note Patient is doing well this morning. I once again discussed with her laparoscopic cholecystectomy. I discussed the procedure in detail with the patient. I discussed the risks, benefits, and alternatives of the procedure. I discussed the risks including but not limited to bleeding, infection, injury to surrounding organs such as the liver, bile duct, bowels. I did discuss the possibility of having to convert to an open procedure as well as the possibility that if any injuries occurred this may necessitate further surgery at a tertiary care center. Nigel Marshall MD Pager: [facility] [address] [place] [address], [address] [place] [address] Office:
--- NOTE | 2024-12-06 13:08 | PRE.ANES_ITS ---
ASA Classification* ASA Classification ASA Classification: 3 Assessment & Plan Anesthesia* Anesthesia Assessment Anesthesia Assessment: Discussed sedation and/or anesthesia options, risks, benefits, and alternatives with patient/parents/legal guardian/POA. Questions invited. The patient/parents/legal guardian/POA seems to understand and agrees to proceed with anesthesia plan. Reviewed the physical assessment, medical history, allergy history and patient home medications list prior to surgery/procedure/anesthetic and documented any changes. Performed airway and anesthesia risk assessments. Anesthesia Type Anesthesia Type: General History Source History Obtained from:: Patient and Chart Anesthesia Focused Assessment* Temperature: 98.9 F Pulse Rate: 59 Blood Pressure: 138/91 Respiratory Rate: 18 Pulse Ox: 97 Oxygen Delivery Method: Room Air Airway Assessment Mouth opens: >3 cm Mallampati Score: II Teeth Condition: Chipped/Broken (Upper back molar, rest of teeth intact.) Neck Range of motion (ROM): Full ROM Labs Anesthesia Preop lab: CBC WBC 10.1 K/mm3 (4.4-11.0) 12/06/24 05:07 12/06/24 RBC 3.65 M/mm3 (4.2-5.4) L 12/06/24 05:07 12/06/24 Hgb 10.4 g/dL (12.0-15.0) L 12/06/24 05:07 5 Hct 31.8 % (37-47) L 12/06/24 05:07 12/06/24 Plt Count 239 K/mm3 (150-450) 12/06/24 05:07 12/06/24 CHEMISTRY Potassium 3.8 mmol/L (3.3-5.1) 12/06/24 05:07 12/06/24 Sodium 140 mmol/L (133-145) 12/06/24 05:07 12/06/24 Magnesium 2.0 mg/dL (1.5-2.2) 12/03/24 17:14 12/03/24 Phosphorus 3.8 mg/dL (2.7-4.5) 12/05/24 04:54 12/05/24 BUN 9 mg/dL (4-19) 12/06/24 05:07 12/06/24 Creatinine 0.77 mg/dL (0.70-1.20) 12/06/24 05:07 12/06/24 Glucose 95 mg/dL (70-99) 12/06/24 05:07 12/06/24 TSH 1.800 uIU/mL (0.300-4.200) 12/04/24 06:23 11/19 10/13 COAG Pre-Assessment Diagnosis/Proposed Procedure Planned Operative Procedure(s): Laparascopic Cholecystectomy with IOC Anesthesia History Anesthesia History - director of clinical trials: Anesthesia History - director of clinical trials Hx Hospitalization Any Problems With Anesthesia No 12/05/24 20:48 Cholinesterase deficiency No 12/05/24 20:48 You/Your Family Experience No 12/05/24 20:48 fever (hyperthermia) with Relationship Recent Exposure to Contagious No 12/05/24 20:48 Disease Does patient have nerve No 12/05/24 20:48 stimulator Patient instructed to have device shut off --Does patient have Pacemaker No 12/06/24 09:36 or ICD? When Was Last Pacemaker Check QUESTION #4 FULL TEXT: You/Your Family Experience fever (hyperthermia) with Anesthesia Any additional information?: No Last Oral Intake Last Oral intake: Last Oral Intake NPO since 00:00 12/06/24 09:36 Meds taken in AM with sips of No 12/06/24 09:36 water? Meds patient instructed to take am of surgery Any additional information?: No PONV PONV - director of clinical trials: PONV - director of clinical trials Female HX of Motion Sickness HX of N/V After Surgery Non-Smoker Duration of Surgery greater than 60 minutes Number of Risk Factors PONV Score Any additional information?: No Height & Weight Height & Weight: Anesthesia: Height & Weight Height 5 ft 8 in 12/06/24 09:36 Weight: 120.202 kg 12/06/24 09:36 Body Mass Index (BMI) 40.3 12/06/24 09:36 Respiratory Assessment Respiratory Assessment - director of clinical trials: Respiratory Tract Infection Hx - director of clinical trials Hx Respiratory Tract Infection No 12/05/24 20:48 Any additional information?: No STOP Sleep Apnea STOP Sleep Apnea - director of clinical trials: STOP Sleep Apnea - director of clinical trials Hx Hypertension No 12/03/24 23:41 Hx Sleep Apnea No 12/04/24 15:14 CPAP BIPAP Do you snore loudly (louder Yes 12/03/24 23:41 than talking or can be heard Do you often feel tired/ No 12/03/24 23:41 fatigued/ sleepy during daytime? Has anyone observed you stop No 12/03/24 23:41 breathing during sleep? STOP Results Negative 12/04/24 14:50 QUESTION #5 FULL TEXT : Do you snore loudly (louder than talking or can be heard through closed doors)? 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 Specify any problems Hx of Preganancy in last 3 No 12/03/24 23:41 Months Nurse Filling Out Transfusion DRENBACK 12/03/24 23:41 & Questions: Date: 12/03/24 12/03/24 23:41 Time: 23:42 12/03/24 23:41 Patient unable to answer at this time (ie. confused, unrespo Any additional information?: No /Reproduction History /Reproductive History - director of clinical trials: /Reproductive Hx- director of clinical trials Hx Now No 12/05/24 20:48 Gestational Age (in weeks): EDC: Hx Hx Para Hx Section SAB No 12/03/24 23:41 Any additional information?: No Active Medications Active Medications: Current Medications Generic Name Dose Route Start Last Admin Trade Name Freq PRN Reason Stop Dose Admin Piperacillin Sod/Tazobactam 50 mls @ 12.5 mls/hr 12/04/24 06:00 12/06/24 10:24 Sod 3.375 gm/ Sodium Chloride IV Infused Q8 STEFFEN Infusion Pantoprazole Sodium 40 mg/ 100 mls @ 330 mls/hr 12/03/24 22:13 12/05/24 22:58 Sodium Chloride IV Infused 2200 STEFFEN Infusion Sodium Chloride 250 mls @ 15 mls/hr 12/03/24 23:36 IV .[id number] PRN Saline Flush Sodium Chloride 250 mls @ 15 mls/hr 12/03/24 23:36 IV .[id number] PRN Additional IVPB Infusion Sodium Chloride 1,000 mls @ 75 mls/hr 12/04/24 18:45 12/06/24 12:11 IV Infused .[id number] STEFFEN Infusion Sodium Chloride 1,000 mls @ 15 mls/hr 12/06/24 12:25 IV .Q48H STEFFEN Ketorolac Tromethamine 15 mg 12/03/24 23:35 12/05/24 07:38 Ketorolac 15 Mg/Ml Vial IV 12/08/24 23:36 15 mg TID PRN PRN Administration Pain 1-5/10 or Fever Morphine Sulfate 2 mg 12/03/24 23:35 Morphine 2 Mg/Ml Syringe IV Q4H PRN PRN Pain Score 6-10 Ondansetron HCl 4 mg 12/03/24 23:35 Ondansetron 4 Mg/2 Ml Vial IV Q4H PRN PRN NAUSEA/VOMITING Oxycodone HCl 10 mg 12/05/24 09:10 12/05/24 22:42 Oxycodone 5 Mg Tablet PO 10 mg Q6H PRN PRN Administration Pain Score 1-10 Sodium Chloride 10 - 40 ml 12/03/24 23:36 12/05/24 07:38 0.9% Saline Lock 10 Ml Syringe IV 10 ml UD PRN Administration SALINE FLUSH PFSH Medical History Depression Anxiety Physical exam, pre-employment Home Medications ?Medication ?Instructions ?Recorded ?Last Taken ?Type methocarbamol 500 mg tablet 1,000 mg (2 x 500 mg) PO 4 X/DAY 11/29/24 Unknown Rx PRN Muscle pain/spasm #56 tabs oxycodone-acetaminophen 5 mg-325 1 tab PO Q6H PRN pain 3 days #12 11/29/24 Unknown Rx mg tablet (Endocet) tabs Allergy/AdvReac Type Severity Reaction Status Date / Time No Known Allergies Allergy Verified 11/29/24 21:45 Social History Smoking Status: Former smoker Addt'l Information Additional Findings: No issues with anesthesia for ERCP. Review of Systems (Anesthesia) ROS Narrative System reviewed and no additional complaints, except as documented.
--- NOTE | 2024-12-06 13:15 | GALL_PTH ---
PATIENT: SHERRI LOGAN LOC: [facility] U#:[id number] AGE/SX: 19/F ROOM: PA318 RE12/03/[address]: Dr. Kj Garcia, : 2005 BED: 1 DIS: 12/06/2024 SPEC #: [id number] RECD: 12/06/24 16:32 STATUS: RACHEL RERaymundo #: [id number] SAGE: 12/06/24 13:[address]: Nigel Marshall DEPT: SURGICAL PATHOLOGY RECD BY: Ke Campbell ENTERED: 12/07/24 13:18 SP TYPE: GALLBLADDE OTHR DR: Dr. Alex Weems, DO Dr. Kj Garcia, DO No Primary Care Phys Tissues: A - Gallbladder, NOS Procedures: Surgery Specimen Level III Comments: @ Ordering doctor for SUIII edited from to @ by PABLO at 12/07/24 1318 @ Submitting doctor edited from to @ by PABLO at 12/07/24 1318 HEADER OPERATION: Laparoscopic cholecystectomy with IOC PRE-OP DIAGNOSIS: Choledocholithiasis, acute cholecystitis TISSUE SUBMITTED: A- Gallbladder MICROSCOPIC DIAGNOSIS A. Gallbladder, cholecystectomy: - Acute on chronic cholecystitis with cholelithiasis and focal cholesterolosis. - Benign pericystic lymph node x1. MICROSCOPIC DESCRIPTION Slides are reviewed. GROSS DESCRIPTION A. Received in formalin labeled with the patient's name and date of . Designated as gallbladder is an 8.9 x 3.5 x 3.1 cm purple, intact and distended gallbladder with attached patent cystic duct (inked black, shaved). A 0.7 cm lymph node is present. Opening reveals dark green tenacious bile and multiple irregular, bosselated choleliths, ranging 0.3 cm to 0.6 cm. The mucosa is green granular and fibrotic with a maximum wall thickness of 0.2 cm. Focal cholesterolosis is present. Dust Sampler sections are submitted in 1 cassette. [place] 12/07/2024 CPT:29069
[2024-12-06] MEDS: Midazolam 2 MG/2 ML Syringe IV (13:24)
[2024-12-06] MEDS: Lidocaine 1% (5 ml sdv) 5 ML Vial IV (13:30)
--- NOTE | 2024-12-06 13:47 | RAD_ITS ---
PROCEDURE: CHOLANGIOGRAM/ O R,INITIAL 12/06/2024 REASON FOR EXAM: LAP SARAH TECHNIQUE: CHOLANGIOGRAM/ O R,INITIAL. Radiation dose. Fluoroscopy: 32 seconds. 20.75 mGy COMPARISON: None FINDINGS: An intraoperative cholangiogram was performed. A stent is seen within the common bile duct. There is opacification of the gallbladder. Contrast is seen entering the CBD stent with flow into the duodenum. RAD/Cholangiogram/ O R,Initial IMPRESSION: Patent biliary stent with contrast entering the duodenum. Reading Location: [id number]
[2024-12-06] MEDS: Piperacil/Tazobactam 3.375 GM/50 ML ML IV (13:48)
[2024-12-06] MEDS: fentaNYL 100 MCG/2 ML Ampul 200 MCG IV (13:58)
[2024-12-06] MEDS: Lactated Ringers 2,000 ML 2000 ML IV (14:14)
--- NOTE | 2024-12-06 14:29 | OP.PCM_ITS ---
Operative Report (Standard) Operative Information Date of Procedure: 12/06/24 Pre-Operative Diagnosis: Choledocholithiasis and cholelithiasis Post-Operative Diagnosis: Same Surgery/Procedure Performed: Laparoscopic cholecystectomy with cholangiograms maternity floor supervisor: Yes Upholstery Mechanic: Natasha Harp Tasks completed by restaurant assistant manager: Opening & closing and Retracting Type of Anesthesia: General/Regional RN Documented Start/Stop Times: Operation Date: 12/06/24 13:15 Case Time Into Pre-Op 12/06/24 12:19 Out of Pre-Op 12/06/24 13:08 Anesthesia Start 12/06/24 13:24 Into Room 12/06/24 13:24 Procedure Start 12/06/24 13:47 Procedure Start Time: 13:47 Procedure Stop Time: 14:37 Select all DRAINS/GRAFTS/IMPLANTS that apply: None Estimated Blood Loss: 10 Specimen collected: Yes Description of specimen(s) removed: Gallbladder Description of surgery: After obtaining informed consent patient was brought back to the operating room. General anesthesia was induced. The abdomen was prepped and draped in usual sterile fashion. A small midline incision was made superior to the umbilicus and deepened to the level of fascia. The fascia was elevated and incised. Next the peritoneum was elevated and incised in the same fashion. Finger sweep was performed and the Varela trocar was placed into the abdomen. The balloon was inflated. The abdomen was inflated to 15 mmHg. Next a camera was introduced into the abdomen and the abdomen was inspected. Next under direct visualization three 5-mm ports were placed one subxiphoid and 2 subcostal. Next the gallbladder was elevated and retracted toward the right shoulder. The peritoneum was stripped from the gallbladder. The infundibulum was located and retracted laterally. Next the triangle of Calot was dissected and the cystic duct and cystic artery were identified. Cholangiograms were performed. The Park clamp was used to clamp across the infundibulum and the catheter needle was inserted into the gallbladder. Under fluoroscopy contrast was instilled into the gallbladder and the common duct, cystic duct as well as proximal hepatic ducts were identified. There was good filling of the duodenum. There were no filling defects noted in the common bile duct. The clamp was removed as well as the needle and the infundibulum was grasped once more. Three hemolock clips were placed across the cystic duct. The cystic duct was then divided leaving 2 clips on the stump. The cystic artery was clipped and divided in the same fashion. The hook cautery was then used to take the gallbladder off of the gallbladder bed. Hemostasis was obtained. Gallbladder fossa was irrigated and no active bleeding or bile leakage was noted. Next the camera was introduced in the subxiphoid port. An Endopouch bag was placed through the umbilical port and the gallbladder was placed into it. The gallbladder was then removed through the umbilical incision. The camera was then reinserted through the umbilical port. The gallbladder fossa was inspected once more and noted to be hemostatic with no leaking bile. The abdomen was suctioned dry. The 5 mm ports were removed under direct visualization. Next using an 0 Vicryl suture the umbilical fascia was closed in a [id number] fashion using a Esteban Suárez needle. The umbilical port was then removed and the air was removed from the abdomen. The umbilical port site was irrigated local anesthetic was administered to all the incisions. All the incisions were closed with interrupted subcuticular 4-0 Monocryl sutures followed by Steri-Strips and dressings. The patient was awoken and taken to PACU in stable condition. Surgical Findings: Normal intraoperative cholangiograms with stent in place Complications Complications: No Admit VTE Documentation VTE Mechan Device Prophylaxis: SCD's
[2024-12-06] MEDS: Bupiv/Epi 0.25% 30 ML Vial (14:31)
--- NOTE | 2024-12-06 14:32 | DCINST_ITS ---
Discharge Instructions DC O2, CPAP, BIPAP needs Home O2 Discharge instructions: No Dressing / Incision Discharge Activity: May Not Drive (for 2-3 days or while taking narcotic pain medications.) and - (Do not drive, work heavy equipment or sign legal documents for 24 hours.) May shower in (days): 1 Lifting Restrictions: 20 lbs for 2 weeks Additional Activity Instructions:: Pain medication may cause nausea. You should typically eat light foods as you take your pain medications. Pain medication may also cause constipation. If this is a problem for you, please discuss with your doctor. Dressing / Incision Call your doctor if your incision/area has: Continuous Slow Oozing, Sudden Increased Bleeding, Increased Pain/ Swelling, Increased Redness and Foul Smelling Discharge Call your doctor if you observe: Fever of 101 or Higher Suture Line Care: Avoid Pulling/Pushing and Avoid Pinching/Bending Remove Dressing in: 2 days Additional Dressing/Incision Instructions:: Leave operative bandaids on for 2 days. When you remove dressing, leave Steri-Strips on until your follow-up appointment, or until the Steri-Strips fall off on their own. Follow Up Care Please Follow Up With: Nigel Marshall MD When: Please call to schedule 2 week follow up appointment. [phone] Test Results: Test results from this visit will be discussed in further detail at your follow- up appointment, if applicable. Discharge Plan Admission Admit Date/Time: 12/03/24 22:09 Attending Provider: Kj Garcia Primary Care Provider: Care Physician,No Primary Consulting Providers: Alex Weems; Nigel Marshall Discharge Orders/Prescriptions Prescriptions: New oxycodone 5 mg Tablet 5 - 10 mg PO Q4H PRN PRN (Reason: Pain Score 4-10) 5 Days Qty: 20 0RF Discontinued oxycodone-acetaminophen [Endocet] 5-325 mg tablet 1 tab PO Q6H PRN (Reason: pain) 3 Days Qty: 12 0RF No Action methocarbamol 500 mg tablet 1,000 mg PO 4X/DAY PRN (Reason: Muscle pain/spasm) Qty: 56 0RF Referrals / Follow Up: Care Physician,No Primary [Primary Care Provider] - Disposition Disposition (needs filled in before D/C Order can be placed): Home, Self Care
--- NOTE | 2024-12-06 14:43 | PCM.POST.ANE ---
Anesthesia: Postop Eval I Current Vital Signs Temperature: 99.8 F Pulse Rate: 121 Blood Pressure: 144/102 Respiratory Rate: 18 Pulse Ox: 97 Assessment Airway patent: Yes Spontaneous unlabored respirations: Yes nausea: No Vomiting: No Anesthesia Complication: No Fluid Hydration Crystalloid volume administer (ml): 1,300 Total IV fluid infused: 1,300 Progress Note Anesthesia document: Postop Eval 1 completed: Yes
--- NOTE | 2024-12-06 16:15 | SUR.PHASEI ---
Dr. Marshall said from his standpoint if the patient wants to go home tonight, they can.
--- NOTE | 2024-12-06 17:16 | DCINST_ITS ---
Discharge Instructions DC O2, CPAP, BIPAP needs Home O2 Discharge instructions: No Dressing / Incision Discharge Activity: Return to Normal Activity and May Not Drive (For 2 to 3 days) May shower in (days): 1 Weight Bearing Status: Full weight bearing Additional Activity Instructions:: Pain medication may cause nausea. You should typically eat light foods as you take your pain medications. Pain medication may also cause constipation. If this is a problem for you, please discuss with your doctor. Dressing / Incision Call your doctor if your incision/area has: Continuous Slow Oozing, Sudden Increased Bleeding, Increased Pain/ Swelling, Increased Redness and Foul Smelling Discharge Call your doctor if you observe: Fever of 101 or Higher Suture Line Care: Avoid Pulling/Pushing and Avoid Pinching/Bending Additional Dressing/Incision Instructions:: Leave operative bandaids on for 2 days. When you remove dressing, leave Steri-Strips on until your follow-up appointment, or until the Steri-Strips fall off on their own. Follow Up Care Please Follow Up With: Nigel Marshall MD Test Results: Test results from this visit will be discussed in further detail at your follow- up appointment, if applicable. Discharge Plan Admission Admit Date/Time: 12/03/24 22:09 Primary Reason for Your Visit: Choledocholithiasis, acute cholecystitis Attending Provider: Kj Garcia Primary Care Provider: Care Physician,Clarissa Primary Consulting Providers: Alex Weems; Nigel Marshall Discharge Orders/Prescriptions Prescriptions: New oxycodone 5 mg Tablet 5 - 10 mg PO Q4H PRN PRN (Reason: Pain Score 4-10) 5 Days Qty: 20 0RF Continued methocarbamol 500 mg tablet 1,000 mg PO 4X/DAY PRN (Reason: Muscle pain/spasm) Qty: 56 0RF Discontinued oxycodone-acetaminophen [Endocet] 5-325 mg tablet 1 tab PO Q6H PRN (Reason: pain) 3 Days Qty: 12 0RF Referrals / Follow Up: Nigel Marshall MD [Med Staff - Active Staff] - See Referral Note (Call to schedule a 2-week follow-up appointment) Care Physician,No Primary [Primary Care Provider] - Disposition Disposition (needs filled in before D/C Order can be placed): Home, Self Care
--- NOTE | 2024-12-06 17:22 | PCM.DC.SUM ---
Providers Date of Admission: 12/03/24 Date of Discharge: 12/06/24 Primary Care Physician: Clarissa Primary Care Phys Consultations 12/03/24 23:35 Consult: Gastroenterology Routine Consulting Provider: Subha Gastroenterology Reason for Consult: Acute Cholecysitis with suspected Choledocholithiasis. EMERGENT Consult: No Notified: Yes Date Notified: 12/03/24 Time Notified: 22:10 Method of Notification: ED Physician Initiated 12/04/24 08:08 Consult: General Surgery Routine Consulting Provider: Nigel Marshall Reason for Consult: cholecystitis EMERGENT Consult: No Notified: Yes Date Notified: 12/04/24 Time Notified: 08:08 Method of Notification: Verbal Reason For Visit: ACUTE CHOLECYSTITIS AND SUSPECTED Diagnosis Discharge Diagnosis (1) Acute cholecystitis: Status: Resolved Code(s): K81.0 - Acute cholecystitis (2) Nausea and vomiting: Status: Resolved Code(s): R11.2 - Nausea with vomiting, unspecified Qualifiers: Vomiting type: bilious vomiting Qualified Code(s): R11.14 - Bilious vomiting Plan 1. Acute cholecystitis-it is planned for the patient to have a laparoscopic cholecystectomy tomorrow #2 choledocholithiasis-patient underwent an ERCP yesterday with removal of 3 stones #3 nausea and vomiting secondary to #1-patient will remain n.p.o., IV fluids will be administered Total clinical time spent by myself addressing the patient's medical issues, reviewing all of her data, and collaborating with patient's care team: 35 minutes Medications at Discharge Home Medications methocarbamol 500 mg tablet 1,000 mg (2 x 500 mg) PO 4X/DAY PRN Muscle pain/spasm #56 tabs 11/29/24 oxycodone 5 mg tablet 5 - 10 mg (1 - 2 x 5 mg) PO Q4H PRN PRN Pain Score 4-10 5 days #20 tabs 12/06/24 Hospital Course Operations cholecystecomy Procedures - (ERCP) Summary of Care Provided Minutes Spent on Discharge: 32 Hospital Course: This 19-year-old white female was seen in the emergency room at [facility] with complaints of abdominal pain with nausea and vomiting. Her symptoms began 4 days prior to being seen in the ER, she came to the ER on 11/29/2024 for back pain and underwent a workup including negative lumbar x-rays. Patient developed worsening abdominal pain however with nausea and vomiting with bilious emesis. Workup in the emergency room included a gallbladder ultrasound that revealed cholelithiasis with gallbladder distention and mild generalized wall thickening with a mildly dilated common bile duct. CT scan of the abdomen pelvis was obtained that revealed cholelithiasis with CT evidence of acute cholecystitis. Patient's total bilirubin was 2.74 and her liver enzymes were elevated. Patient was admitted to the general medical floor and started on IV antibiotics, GI and general surgery was consulted, GI performed an ERCP with removal of stones and insertion of a temporary stent and sphincterotomy. Patient underwent a laparoscopic cholecystectomy without any complications and was able to be discharged on the day of her surgery. On 12/06/2024, patient was seen and examined: On examination she appeared in good health and spirits, she does not appear to be in any distress. Vital signs as documented. Skin warm and dry and without overt rashes. Neck without JVD, thyroid appears normal, trachea is midline, neck is supple. Lungs clear, normal air movement was noted. Heart exam notable for regular rhythm, normal sounds and absence of murmurs, rubs or gallops. Abdomen unremarkable and without evidence of organomegaly, masses, or abdominal aortic enlargement, bowel sounds are present in all 4 quadrants, no abdominal tenderness was noted. Extremities nonedematous, no cyanosis was noted, no clubbing was noted. Neuro: Cranial nerves II through XII are grossly intact, no focal motor deficits were noted, sensation to light touch and pinprick is intact, motor exam 5/5 throughout. Psych: Patient is alert and oriented x3, she does not appear anxious or depressed, she does not appear agitated. Patient was discharged home in stable condition on 12/06/2024. As a further note, I contacted Dr. White's office to have them contact the patient for a follow-up appointment in 3 weeks due to the fact she has a temporary stent. Weight / BMI Weight Weight: 120.202 kg Body Mass Index (BMI) 40.3 ABG / Lab / Microbiology Data 12/06/24 05:07 12/06/24 05:07 Laboratory: Laboratory Results - last 24 hr 12/06/24 05:07: WBC 10.1, RBC 3.65 L, Hgb 10.4 L, Hct 31.8 L, MCV 87.1, MCH 28.5, MCHC 32.7, RDW Std Deviation 46.3 H, RDW Coeff of Keith 14.6, Plt Count 239, MPV 10.3, Immature Gran % (Auto) 0.400, Neut % (Auto) 69.6, Lymph % (Auto) 21.4, [place] % (Auto) 7.6, Eos % (Auto) 0.8, Baso % (Auto) 0.2, Absolute Neuts (auto) 7.0, Absolute Lymphs (auto) 2.15, Nucleated RBC % 0, Sodium 140, Potassium 3.8, Chloride 108, Carbon Dioxide 22.5, Anion Gap 10, BUN 9, Creatinine 0.77, Estim Creat Clear Calc 158.41, Est GFR (MDRD) Non-Af 114, BUN/Creatinine Ratio 12.2, Glucose 95, Calcium 8.6, Total Bilirubin 0.88, AST 109 H, ALT 215 H, Alkaline Phosphatase 148 H, Total Protein 6.1, Albumin 3.2 L, Globulin 2.8, Albumin/Globulin Ratio 1.2 Radiography Diagnostic Testing: Radiology Impression Endo Retro Cholangiopancreatogram 12/04/24 14:03 IMPRESSION: Nonvisualization of the gallbladder. Dilated common bile duct. Balloon sweep was performed. CBD stent has been inserted in good position. No contrast leakage is noted. [facility] 12/06/24 13:47 IMPRESSION: Patent biliary stent with contrast entering the duodenum. Reading Location: [id number] D/C Instructions May shower in (days): 1 Weight Bearing Status: Full weight bearing Additional Activity Instructions: Pain medication may cause nausea. You should typically eat light foods as you take your pain medications. Pain medication may also cause constipation. If this is a problem for you, please discuss with your doctor. Call your doctor if your incision/area has: Continuous Slow Oozing, Sudden Increased Bleeding, Increased Pain/ Swelling, Increased Redness and Foul Smelling Discharge Call your doctor if you observe: Fever of 101 or Higher Suture Line Care: Avoid Pulling/Pushing and Avoid Pinching/Bending Additional Dressing/Incision Instructions: Leave operative bandaids on for 2 days. When you remove dressing, leave Steri-Strips on until your follow-up appointment, or until the Steri-Strips fall off on their own. DC O2, CPAP, BIPAP Needs Home O2 Discharge instructions: No Please Follow Up With: Nigel Marshall MD When: Please call to schedule 2 week follow up appointment. [phone] Meaningful Use Info Meaningful Use Meaningful Use Diagnoses (Choose all that apply): None applicable Discharge Plan Admission Admit Date/Time: 12/03/24 22:09 Primary Reason for Your Visit: Choledocholithiasis, acute cholecystitis Attending Provider: Kj Garcia Primary Care Provider: Care Physician,No Primary Consulting Providers: Alex Weems; Nigel Marshall Discharge Orders/Prescriptions Prescriptions: New oxycodone 5 mg Tablet 5 - 10 mg PO Q4H PRN PRN (Reason: Pain Score 4-10) 5 Days Qty: 20 0RF Continued methocarbamol 500 mg tablet 1,000 mg PO 4X/DAY PRN (Reason: Muscle pain/spasm) Qty: 56 0RF Discontinued oxycodone-acetaminophen [Endocet] 5-325 mg tablet 1 tab PO Q6H PRN (Reason: pain) 3 Days Qty: 12 0RF Referrals / Follow Up: Nigel Marshall MD [Med Staff - Active Staff] - See Referral Note (Call to schedule a 2-week follow-up appointment) Care Physician,No Primary [Primary Care Provider] - Disposition Disposition (needs filled in before D/C Order can be placed): Home, Self Care Charges/Coding Visit Charges Inpatient E&M: 72703 Disch Hosp >30min
--- NOTE | 2024-12-06 22:58 | ANES.CONFIRM ---
Anesthesia: Confirm Documents Multiple Procedures on Account (2) Confirmed Documents: Yes
--- NOTE | 2024-12-06 23:06 | POSTOPAN2_ITS ---
Anesthesia Postop Eval I Sum Postop Eval Completion status Anesthesia document: Postop Eval 1 completed: Yes Anesthesia Postop Eval I Summary Anesthesia Postop Eval I Summary: Anesthesia Postop Eval I: Assessment Summary Airway patent Yes 12/06/24 14:43 NON DESTRUCTIVE EVALUATION SPECIALIST.[email or web address] Spontaneous unlabored Yes 12/06/24 14:43 NON DESTRUCTIVE EVALUATION SPECIALIST.[email or web address] respirations Mental status Awake,Calm 12/04/24 16:34 nausea No 12/06/24 14:43 NON DESTRUCTIVE EVALUATION SPECIALIST.[email or web address] Vomiting No 12/06/24 14:43 NON DESTRUCTIVE EVALUATION SPECIALIST.[email or web address] Anesthesia Postop Eval I: Fluid Summary Crystalloid volume administer 1,300 12/06/24 14:43 NON DESTRUCTIVE EVALUATION SPECIALIST.PKEL (ml) Colloids volume administered ( ml) Blood Product volume administered (ml) Total IV fluid infused 1,300 12/06/24 14:43 NON DESTRUCTIVE EVALUATION SPECIALIST.[email or web address] Anesthesia Postop Eval I: Summary Notes Anesthesia Complication No 12/06/24 14:43 NON DESTRUCTIVE EVALUATION SPECIALIST.[email or web address] Anesthesia Complication Comment: Post-operative progress note Anesthesia: Postop Eval II Evaluation Mental status: Awake and Calm Pain Level: 1 nausea: No Vomiting: No Complications Anesthesia Complication: No
--- NOTE | 2024-12-06 23:06 | PCM.POSTANE2 ---
Anesthesia Postop Eval I Sum Postop Eval Completion status Anesthesia document: Postop Eval 1 completed: Yes Anesthesia Postop Eval I Summary Anesthesia Postop Eval I Summary: Anesthesia Postop Eval I: Assessment Summary Airway patent Yes 12/06/24 14:43 [email or web address] [email or web address] Spontaneous unlabored Yes 12/06/24 14:43 FACT [email or web address] respirations Mental status Awake,Calm 12/04/24 16:34 nausea No 12/06/24 14:43 FACT [email or web address] Vomiting No 12/06/24 14:43 [email or web address] Anesthesia Postop Eval I: Fluid Summary Crystalloid volume administer 1,300 12/06/24 14:43 FACT [email or web address] (ml) Colloids volume administered ( ml) Blood Product volume administered (ml) Total IV fluid infused 1,300 12/06/24 14:43 [email or web address] Anesthesia Postop Eval I: Summary Notes Anesthesia Complication No 12/06/24 14:43 [email or web address] Anesthesia Complication Comment: Post-operative progress note Anesthesia: Postop Eval II Evaluation Mental status: Awake and Calm Pain Level: 1 nausea: No Vomiting: No Complications Anesthesia Complication: No
== END 2024-12-06 20:33 | disposition home or self-care (01) | DRG 419 ==
LOC: ED 17:19 → MS3 22:23
PROVIDERS: Internal Medicine Gastroenterology; Physician Assistant; Surgery; Admitting Provider Internal Medicine; Emergency Provider Student in an Organized Health Care Education/Training Program; Visit Provider Internal Medicine
PROC: 0FC98ZZ Extirpation of Matter from Common Bile Duct, Via Natural or Artificial Opening Endoscopic (ICD-10-PCS; CPT 43260; principal; 2024-12-04 16:00)
PROC: 0FT44ZZ Resection of Gallbladder, Percutaneous Endoscopic Approach (ICD-10-PCS; CPT 47610; principal; 2024-12-06 12:55)
DX: K80.63 Calculus of gallbladder and bile duct with acute cholecystitis with obstruction (principal); E66.812 Obesity, class 2; Z68.39 Body mass index [BMI] 39.0-39.9, adult; Z87.891 Personal history of nicotine dependence
CPT/HCPCS: 36415; 74177; 74300; 74330; 76000; 76705; 80053; 81001; 83690; 83735; 84100; 84443; 84703; 85025; 88304; 93005; 97802; 99284; C2625; Q9967; A4216; J2405

== ENCOUNTER 2025-02-11 12:04 | Day surgery (SDC) | payer OTHER, SELFPAY ==
--- NOTE | 2025-02-08 16:09 | PAT.ANESEVAL ---
Pre-Assessment Diagnosis/Proposed Procedure Planned Operative Procedure(s): ERCP STENT REMOVAL Anesthesia History Anesthesia History - licensed prosthetist: Anesthesia History - licensed prosthetist Hx Hospitalization Yes: 12/04/24 ERCP, SARAH 02/08/25 13:43 Any Problems With Anesthesia No 02/08/25 13:43 Cholinesterase deficiency No 02/08/25 13:43 You/Your Family Experience No 02/08/25 13:43 fever (hyperthermia) with Relationship Recent Exposure to Contagious No 12/05/24 20:48 Disease Does patient have nerve No 02/08/25 13:43 stimulator Patient instructed to have device shut off --Does patient have Pacemaker or ICD? When Was Last Pacemaker Check QUESTION #4 FULL TEXT: You/Your Family Experience fever (hyperthermia) with Anesthesia Last Oral Intake Last Oral intake: Last Oral Intake NPO since Meds taken in AM with sips of water? 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 - licensed prosthetist: PONV - licensed prosthetist Female Yes 02/08/25 13:43 HX of Motion Sickness Yes 02/08/25 13:43 HX of N/V After Surgery No 02/08/25 13:43 Non-Smoker Yes 02/08/25 13:43 Duration of Surgery greater No 02/08/25 13:43 than 60 minutes Number of Risk Factors 3 02/08/25 13:43 PONV Score Moderate Risk 02/08/25 13:43 Height & Weight Height & Weight: Anesthesia: Height & Weight Height 5 ft 8 in 12/06/24 09:36 Respiratory Assessment Respiratory Assessment - licensed prosthetist: Respiratory Tract Infection Hx - licensed prosthetist Hx Respiratory Tract Infection No 02/08/25 13:43 STOP Sleep Apnea STOP Sleep Apnea - licensed prosthetist: STOP Sleep Apnea - licensed prosthetist Hx Hypertension No 02/08/25 13:43 Hx Sleep Apnea No 02/08/25 13:43 CPAP BIPAP Do you snore loudly (louder No 02/08/25 13:43 than talking or can be heard Do you often feel tired/ No 02/08/25 13:43 fatigued/ sleepy during daytime? Has anyone observed you stop No 02/08/25 13:43 breathing during sleep? STOP Results Negative 02/08/25 13:43 QUESTION #5 FULL TEXT : Do you snore loudly (louder than talking or can be heard through closed doors)? 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 Specify any problems Hx of Preganancy in last 3 N/A 02/08/25 13:43 Months Nurse Filling Out Transfusion NBUCHER 02/08/25 13:43 & Questions: Date: 02/08/25 02/08/25 13:43 Time: 13:44 02/08/25 13:43 Patient unable to answer at this time (ie. confused, unrespo /Reproduction History /Reproductive History - licensed prosthetist: /Reproductive Hx- licensed prosthetist Hx Now No 02/08/25 13:43 Gestational Age (in weeks): EDC: Hx Hx Para Hx Section SAB No 02/08/25 13:43 PFSH Medical History Former smoker Depression Anxiety Obesity (BMI 30-39.9) Physical exam, pre-employment Allergy/AdvReac Type Severity Reaction Status Date / Time No Known Allergies Allergy Verified 02/08/25 13:42 Surgical History (Updated 02/08/25 @ 13:47 by mAada Peterson) History of root canal procedure History of ERCP S/P cholecystectomy Social History Smoking Status: Former smoker Audit: Pertinent Findings Pertinent Findings EKG Perinent findings: 12/04/2024. Sinus bradycardia at 55 bpm with sinus arrhythmia. Additional pertinent findings: 12/06/2024. Hemoglobin is 10.4. Recommendation Anesthesia Recommendation Anesthesia recommendation: OPTIMIZED for anesthesia
[2025-02-11] VITALS (9 sets, daily range): BP systolic 101–136; BP diastolic 59–94; PULSE 100–112; RESP 14–18; TEMP 36.3–37.2; O2SAT 98–100; BMI 40.4
[2025-02-11] MEDS: Lactated Ringers 1,000 ML 15 ML IV (12:38)
[2025-02-11 12:41] LABS: Internal QC Validated? YES +Cl - CLEAR BKGD; Pregnancy, Urine Negative Negative; Record Kit Lot#,Urine Preg 0000980607
--- NOTE | 2025-02-11 13:00 | FLU_PTH ---
PATIENT: SHERRI LOGAN LOC: EN U#:[id number] AGE/SX: 19/F ROOM: RE02/11/[address]: Dr. Michael White DO : 2005 BED: DIS: 02/11/2025 SPEC #: [id number] RECD: 02/11/25 14:25 STATUS: RACHEL RAGSDALE #: [id number] SAGE: 02/11/25 13:[address]: Michael White DEPT: CYTOLOGY RECD BY: Ke Campbell ENTERED: 02/14/25 09:13 SP TYPE: Fluid DARREN DR: Clarissa Primary Care Phys Tissues: A - Biliary tract, NOS Procedures: Special Stain Group II Surgery Specimen Level IV Cytospin Fluid HEADER OPERATION: ERCP with stent removal, balloon sweep PRE-OP DIAGNOSIS: Status post endoscopic retrograde cholangiopancreatography, status post cholecystectomy, occlusion of biliary anastomotic stent TISSUE SUBMITTED: A- Biliary stent for cytology DIAGNOSIS CYTOLOGY A. Biliary stent, ERCP (cytospin, cellblock): - No malignant cells identified. - Essentially acellular specimen. CYTOLOGY STUDY Slides are reviewed. CYTOLOGY GROSS A. Received is 10 blue stent with 0.2 ml of yellow-fluid with particles, labeled with the patient's name and and designated per the requisition as "Biliary stent" Submitted for cytology and cell block preparation. 02/14/2025 CPT: 41055,82893
--- NOTE | 2025-02-11 13:12 | PRE.ANES_ITS ---
ASA Classification* ASA Classification ASA Classification: 3 Assessment & Plan Anesthesia* Anesthesia Assessment Anesthesia Assessment: Discussed sedation and/or anesthesia options, risks, benefits, and alternatives with patient/parents/legal guardian/POA. Questions invited. The patient/parents/legal guardian/POA seems to understand and agrees to proceed with anesthesia plan. Reviewed the physical assessment, medical history, allergy history and patient home medications list prior to surgery/procedure/anesthetic and documented any changes. Performed airway and anesthesia risk assessments. Anesthesia Type Anesthesia Type: MAC History Source History Obtained from:: Patient and Chart Anesthesia Focused Assessment* Temperature: 99 F Pulse Rate: 100 Blood Pressure: 136/94 Respiratory Rate: 16 Pulse Ox: 99 Oxygen Delivery Method: Room Air Airway Assessment Mouth opens: >3 cm Mallampati Score: I Teeth Condition: Chipped/Broken (Chipped left upper molar.) and Missing (Missing left upper molar.) Neck Range of motion (ROM): Full ROM Labs Anesthesia Preop lab: CBC WBC, (4.4-11.0) 10.1 K/mm3 12/06/24, 05:07 RBC, (4.2-5.4) 3.65 M/mm3 L 12/06/24, 05:07 Hgb, (12.0-15.0) 10.4 g/dL L 12/06/24, 05:07 Hct, (37-47) 31.8 % L 12/06/24, 05:07 Plt Count, (150-450) 239 K/mm3 12/06/24, 05:07 CHEMISTRY Potassium, (3.3-5.1) 3.8 mmol/L 12/06/24, 05:07 Sodium, (133-145) 140 mmol/L 12/06/24, 05:07 Magnesium, (1.5-2.2) 2.0 mg/dL 12/03/24, 17:14 Phosphorus, (2.7-4.5) 3.8 mg/dL 12/05/24, 04:54 BUN, (4-19) 9 mg/dL 12/06/24, 05:07 Creatinine, (0.70-1.20) 0.77 mg/dL 12/06/24, 05:07 Glucose, (70-99) 95 mg/dL 12/06/24, 05:07 TSH, (0.300-4.200) 1.800 uIU/mL 12/04/24, 06:23 COAG Urine Test Negative Negative Today, 12:25 Pre-Assessment Diagnosis/Proposed Procedure Planned Operative Procedure(s): ERCP STENT REMOVAL Anesthesia History 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 When Was Last Pacemaker Check QUESTION #4 FULL TEXT: You/Your Family Experience fever (hyperthermia) with Anesthesia Last Oral Intake Last Oral intake: Last Oral Intake NPO since 23:00 02/11/25 12:34 Meds taken in AM with sips of water? 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 - ground worker: PONV - ground worker Female Yes 02/08/25 13:43 HX of Motion Sickness Yes 02/08/25 13:43 HX of N/V After Surgery No 02/08/25 13:43 Non-Smoker Yes 02/08/25 13:43 Duration of Surgery greater No 02/08/25 13:43 than 60 minutes Number of Risk Factors 3 02/08/25 13:43 PONV Score Moderate Risk 02/08/25 13:43 Height & Weight Height & Weight: Anesthesia: Height & Weight Height 5 ft 8 in 02/11/25 12:34 Weight: 120.7 kg 02/11/25 12:34 Body Mass Index (BMI) 40.4 02/11/25 12:34 Respiratory Assessment Respiratory Assessment - ground worker: Respiratory Tract Infection Hx - ground worker Hx Respiratory Tract Infection No 02/08/25 13:43 STOP Sleep Apnea STOP Sleep Apnea - ground worker: STOP Sleep Apnea - ground worker Hx Hypertension No 02/08/25 13:43 Hx Sleep Apnea No 02/08/25 13:43 CPAP BIPAP Do you snore loudly (louder No 02/08/25 13:43 than talking or can be heard Do you often feel tired/ No 02/08/25 13:43 fatigued/ sleepy during daytime? Has anyone observed you stop No 02/08/25 13:43 breathing during sleep? STOP Results Negative 02/08/25 13:43 QUESTION #5 FULL TEXT : Do you snore loudly (louder than talking or can be heard through closed doors)? 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 Specify any problems Hx of Preganancy in last 3 N/A 02/08/25 13:43 Months Nurse Filling Out Transfusion NBUCHER 02/08/25 13:43 & Questions: Date: 02/08/25 02/08/25 13:43 Time: 13:44 02/08/25 13:43 Patient unable to answer at this time (ie. confused, unrespo /Reproduction History /Reproductive History - ground worker: /Reproductive Hx- ground worker Hx Now No 02/08/25 13:43 Gestational Age (in weeks): EDC: Hx Hx Para Hx Section SAB No 02/08/25 13:43 Active Medications Active Medications: Current Medications Generic Name Dose Route Start Last Admin Trade Name Freq PRN Reason Stop Dose Admin Lactated Ringer's 1,000 mls @ 15 mls/hr 02/11/25 12:30 02/11/25 12:38 IV 15 mls/hr .Q48H STEFFEN Administration PFSH Medical History Former smoker Depression Anxiety Obesity (BMI 30-39.9) Physical exam, pre-employment Home Medications Medication Instructions Recorded Last Taken Type NK 02/11/25 Unknown History Allergy/AdvReac Type Severity Reaction Status Date / Time No Known Allergies Allergy Verified 02/11/25 12:34 Surgical History (Updated 02/08/25 @ 13:47 by Amada Peterson) History of root canal procedure History of ERCP S/P cholecystectomy Social History Smoking Status: Former smoker Review of Systems (Anesthesia) ROS Narrative System reviewed and no additional complaints, except as documented.
--- NOTE | 2025-02-11 13:36 | HP.PCM_ITS ---
HPI - General General Date of Admission: 02/11/25 Date of Service: 02/11/25 Chief Complaint: Biliary stent removal HPI Narrative SHERRI LOGAN, is a 19 y/o F I am following s/p laparoscopic cholecystectomy with intraoperative cholangiogram by Dr. Marshall on 12/06/24. She underwent an ERCP with stone removal and stent placement on 12/04/24. Patient tolerated the procedure well. She notes incisional discomfort with movement. She notes i ntermittent nausea and acid reflux. She take TUMs that helps with the reflux. She notes appetite and bowel habits have returned to normal. She comes in today for ERCP with biliary stent removal. [facility] Medical History Former smoker Depression Anxiety Obesity (BMI 30-39.9) Physical exam, pre-employment Home Medications Medication Instructions Recorded Last Taken Type NK 02/11/25 Unknown History Allergy/AdvReac Type Severity Reaction Status Date / Time No Known Allergies Allergy Verified 02/11/25 12:34 Surgical History History of root canal procedure History of ERCP S/P cholecystectomy Social History Smoking Status: Former smoker ROS Constitutional Constitutional: Denies fatigue, fever(s), poor appetite, weight gain or weight loss Gastrointestinal Gastrointestinal: Denies belching, bloating, change in bowel habits, change in stool character, chewing difficulty, coffee ground emesis, constipation, cramping, diarrhea, dyspepsia, dysphagia, early satiety, excessive flatus, fecal incontinence, heartburn, hematemesis, hematochezia, hemorrhoids, loose stools, melena, nausea, odynophagia, rectal bleeding, tenesmus, vomiting or weight changes Vital Signs Vital Signs Vital Signs: 02/11/25 12:34 02/11/25 12:34 02/11/25 13:31 Temperature 99 F 99 F Temperature Source Temporal Pulse Rate 100 100 Respiratory Rate 16 16 Respiratory Pattern Normal Blood Pressure 136/94 H 136/94 H Blood Pressure Mean 108 Blood Pressure Source Monitor Blood Pressure Position Semi-Fowlers Blood Pressure Location Left Arm Pulse Ox 99 99 Oxygen Delivery Method Room Air Room Air Weight Weight: 266 lb 1.567 oz Body Mass Index (BMI) 40.4 Physical Exam Const alert, oriented x3, no apparent distress and healthy appearing General Appearance: cooperative GI normal to inspection, nondistended, normoactive bowel sounds, soft to palpation, non-tender and non-distended Percussion: normal to percussion Rectal Exam: deferred Results Lab / Micro Data Labs: Laboratory Results - last 24 hr 02/11/25 12:25: Urine Test Negative Assessment & Plan Assessment/Plan (1) Status post endoscopic retrograde cholangiopancreatography: (2) S/P cholecystectomy: (3) Occlusion of biliary anastomotic stent: PLAN: She will undergo ERCP with biliary stent removal. She was explained alternatives, risk and benefits include understanding bleeding, infection, sepsis, perforation, need for more surgery . She will have an ASA of 3.
--- NOTE | 2025-02-11 13:50 | RAD_ITS ---
PROCEDURE: ERCP BILIARY/PANCREAS 02/11/2025 REASON FOR EXAM: ERCP STENT REMOVAL TECHNIQUE: Procedure Code: RADERCP Modality: DX Procedure: ERCP BILIARY/PANCREAS. Intraoperative fluoroscopic services provided for ERCP. 1 minute and 16 seconds of fluoroscopy. 49.47 mGy. 8 images were submitted. COMPARISON: Prior study dated December 06, 2024. FINDINGS: Intraoperative fluoroscopic services provided for stent removal. RAD/ERCP Biliary/Pancreas IMPRESSION: Intraoperative fluoroscopic services provided for stent removal. Reading Location: [facility]
--- NOTE | 2025-02-11 14:29 | PCM.POST.ANE ---
Anesthesia: Postop Eval I Current Vital Signs Temperature: 97.4 F Pulse Rate: 107 Blood Pressure: 101/59 Respiratory Rate: 18 Pulse Ox: 98 Oxygen Delivery Method: Nasal Cannula Oxygen Flow Rate (L/min): 3 Assessment Airway patent: Yes Spontaneous unlabored respirations: Yes Mental status: Asleep nausea: No Vomiting: No Anesthesia Complication: No Fluid Hydration Crystalloid volume administer (ml): 600 Total IV fluid infused: 600 Progress Note Anesthesia document: Postop Eval 1 completed: Yes
--- NOTE | 2025-02-11 14:37 | OP.ERCP_ITS ---
Patient Name: Lucía Mays Procedure Date: 02/11/2025 1:36 PM Date of : 2005 Age: 19 Procedure: ERCP Indications: Bile duct stone(s), Biliary stent removal Providers: Michael White DO Referring MD: No Primary Care Physician Medicines: Monitored Anesthesia Care Patient Profile: This is a 19 year old female. Refer to note in patient chart for documentation of history and physical. Patient has symptoms of acute right upper quadrant abdominal pain. Her most recent ERCP for stent and ERCP for stone removal was within the past three months. She is status post laparoscopic cholecystectomy within the past three months. Complications: No immediate complications. Procedure: Pre-Anesthesia Assessment: - Prior to the procedure, a History and Physical was performed, and patient medications and allergies were reviewed. The patient is competent. The risks and benefits of the procedure and the sedation options and risks were discussed with the patient. All questions were answered and informed consent was obtained. Patient identification and proposed procedure were verified by the physician in the pre-procedure area. Mental Status Examination: alert and oriented. Airway Examination: normal oropharyngeal airway and neck mobility. Respiratory Examination: clear to auscultation. CV Examination: normal. ASA Grade Assessment: II - A patient with mild systemic disease. After reviewing the risks and benefits, the patient was deemed in satisfactory condition to undergo the procedure. The anesthesia plan was to use monitored anesthesia care (MAC). Immediately prior to administration of medications, the patient was re-assessed for adequacy to receive sedatives. The heart rate, respiratory rate, oxygen saturations, blood pressure, adequacy of pulmonary ventilation, and response to care were monitored throughout the procedure. The physical status of the patient was re-assessed after the procedure. After obtaining informed consent, the scope was passed under direct vision. Throughout the procedure, the patient's blood pressure, pulse, and oxygen saturations were monitored continuously. The Duodenoscope was introduced through the mouth, and advanced to the duodenum and used to inject contrast into the bile duct. The ERCP was accomplished without difficulty. The patient tolerated the procedure well. Scope In: 1:54:00 PM Scope Out: 2:10:19 PM Total Procedure Duration Time 0 hours 16 minutes 19 seconds Findings: The starch treating assistant film was normal. A biliary stent was visible on the starch treating assistant film. The scope was passed through the upper GI tract without discovering UGI findings. The major papilla was normal. The minor papilla was normal. A long 0.025 inch Jagwire was passed into the biliary tree. The short-nosed traction sphincterotome was passed over the guidewire and the bile duct was then deeply cannulated. Contrast was injected. I personally interpreted the bile duct images. There was brisk flow of contrast through the ducts. Image quality was adequate. Contrast extended to the entire biliary tree. Opacification of the entire opacified area, main bile duct, common bile duct, cystic duct, common hepatic duct, hepatic duct bifurcation, left and right hepatic ducts and all intrahepatic branches and entire biliary tree was successful. The maximum diameter of the ducts was 10 mm. The lower third of the main bile duct contained one stone, which was 6 mm in diameter. The entire biliary tree was diffusely dilated, with a stone causing an obstruction. The largest diameter was 12 mm. A cholecystectomy had been performed. A 5 mm biliary sphincterotomy was made with a traction (standard) sphincterotome using ERBE electrocautery. There was no post-sphincterotomy bleeding. The biliary tree was swept with a 12 mm balloon starting at the upper third of the main bile duct, lower third of the main duct, bifurcation, left intrahepatic duct(s), left main hepatic duct, right intrahepatic duct(s) and right main hepatic duct. Sludge was swept from the duct. All stones were removed. One stent was removed from the biliary tree using a snare and sent for cytology. The stent was found to be partially occluded via the water column test. Impression: - The major papilla appeared normal. - The minor papilla appeared normal. - The entire biliary tree was dilated, with a stone causing an obstruction. - The patient has had a cholecystectomy. - Choledocholithiasis was found. Complete removal was accomplished by biliary sphincterotomy and balloon extraction. - A biliary sphincterotomy was performed. - The biliary tree was swept. - One stent was removed from the biliary tree. Procedure Code(s): --- Professional --- 74692, Endoscopic retrograde cholangiopancreatography (ERCP); with removal of foreign body(s) or stent(s) from biliary/pancreatic duct(s) 75042, Endoscopic retrograde cholangiopancreatography (ERCP); with removal of calculi/debris from biliary/pancreatic duct(s) 23605, Endoscopic retrograde cholangiopancreatography (ERCP); with sphincterotomy/papillotomy 23239, 26, Endoscopic catheterization of the biliary ductal system, radiological supervision and interpretation CPT copyright 2021 [employer]. All rights reserved. The codes documented in this report are preliminary and upon quality system manager review may be revised to meet current compliance requirements. Michael White DO 02/11/2025 2:37:03 PM This report has been signed electronically. Number of Addenda: 0 Note Initiated On: 02/11/2025 1:36 PM
--- NOTE | 2025-02-11 14:37 | OP.PROVAT_ITS ---
02/11/2025 No Primary Care Physician Re : ERCP procedure for Lucía Mays [facility] Physician This procedure was performed on Tuesday, February 11, 2025. My impressions and recommendations are as follows: Impressions : - The major papilla appeared normal. - The minor papilla appeared normal. - The entire biliary tree was dilated, with a stone causing an obstruction. - The patient has had a cholecystectomy. - Choledocholithiasis was found. Complete removal was accomplished by biliary sphincterotomy and balloon extraction. - A biliary sphincterotomy was performed. - The biliary tree was swept. - One stent was removed from the biliary tree. Recommendations : My findings are described in the full procedure note, which is enclosed. If I can be of further assistance, please feel free to contact me at . Sincerely, Michael White, 02/11/2025 2:37:03 PM This report has been signed electronically.
[2025-02-11] MEDS: Lactated Ringers 1,000 ML 999 ML IV (14:51)
[2025-02-11] MEDS: Lactated Ringers 1,000 ML 1000 ML IV (16:00)
--- NOTE | 2025-02-11 19:31 | PCM.POSTANE2 ---
Anesthesia Postop Eval I Sum Postop Eval Completion status Anesthesia document: Postop Eval 1 completed: Yes Anesthesia Postop Eval I Summary Anesthesia Postop Eval I Summary: Anesthesia Postop Eval I: Assessment Summary Airway patent Yes 02/11/25 14:31 [email or web address] Spontaneous unlabored Yes 02/11/25 14:31 [email or web address] respirations Mental status Asleep 02/11/25 14:31 [email or web address] nausea No 02/11/25 14:31 [email or web address] Vomiting No 02/11/25 14:31 [email or web address] Anesthesia Postop Eval I: Fluid Summary Crystalloid volume administer 600 02/11/25 14:31 [email or web address] (ml) Colloids volume administered ( ml) Blood Product volume administered (ml) Total IV fluid infused 600 02/11/25 14:31 [email or web address] Anesthesia Postop Eval I: Summary Notes Anesthesia Complication No 02/11/25 14:31 [email or web address] Anesthesia Complication Comment: Post-operative progress note Anesthesia: Postop Eval II Evaluation Mental status: Awake and Calm Pain Level: 0 nausea: No Vomiting: No Complications Anesthesia Complication: No
== END 2025-02-11 17:21 | disposition home or self-care (01) ==
LOC: EN 12:09 → AC 12:11
PROVIDERS: Anesthesiology; Visit Provider Internal Medicine Gastroenterology
PROC: (CPT 43260; principal; 2025-02-11 12:40)
DX: K80.51 Calculus of bile duct without cholangitis or cholecystitis with obstruction (principal); Z90.49 Acquired absence of other specified parts of digestive tract; Z87.891 Personal history of nicotine dependence
CPT/HCPCS: 43262; 43275; 43264; 74330; 76000; 81025; 88108; 88305; 88313; J2405

== ENCOUNTER 2025-03-15 08:22 | Emergency (ER) | payer OTHER, SELFPAY ==
[2025-03-15 08:22] VITALS: BP 150/101; PULSE 98; RESP 14; TEMP 36.8; O2SAT 98; BMI 42.2
[2025-03-15 08:37] VITALS: BP 147/83; PULSE 95; O2SAT 98
--- NOTE | 2025-03-15 09:02 | EDS_ITS ---
HPI HPI - GI History of Present Illness Chief Complaint: Abd Pain Detail of Chief Complaint: Abdominal pain Informant: patient Narrative Narrative: Patient presents with abdominal pain and started 2 weeks ago. Patient states pains been intermittent. Has had some nausea but no vomiting. Yesterday had 3 episodes of soft stool. Food does not seem to affect her pain. She took a dose of omeprazole 1 time it seemed to help her pain. She had her gallbladder removed. She denies urinary symptoms. She has the [employer] control but states it is since last month. Does not think she is but her last menstrual period was over 2 months ago. [facility] Medical History Former smoker Depression Anxiety Obesity (BMI 30-39.9) Physical exam, pre-employment Home Medications ?Medication ?Instructions ?Recorded ?Last Taken ?Type hydrocodone-acetaminophen 5-325mg 1 tab PO Q4H PRN PRN Pain 2 days 03/15/25 Unknown Rx 5mg-325mg #10 TABLETS ondansetron 4 mg disintegrating 4 mg PO Q8H PRN PRN Na usea #10 tabs 03/15/25 Unknown Rx tablet Allergy/AdvReac Type Severity Reaction Status Date / Time No Known Allergies Allergy Verified 03/15/25 08:24 Family History unable to obtain Surgical History History of root canal procedure History of ERCP S/P cholecystectomy Social History Smoking Status: Former smoker ROS ROS ED Review of Systems ROS Unobtainable: other Constitutional Constitutional ED: Reports lethargy; Denies chills, fever(s), sweats or weight loss Eyes Eyes: Denies blurry vision, change in vision or diplopia ENT ENT ED: Denies rhinorrhea or sore throat Cardiovascular Cardiovascular: Denies chest pain, orthopnea or racing heartbeat Respiratory/Chest Respiratory/Chest: Denies cough, dyspnea, dyspnea on exertion, orthopnea or sputum Gastrointestinal Gastrointestinal: Reports abdominal pain and nausea; Denies diarrhea or vomiting Genitourinary Genitourinary ED: Denies dysuria, hematuria or urinary frequency Musculoskeletal Musculoskeletal: Denies arthralgias, back pain, myalgias or neck pain Integumentary Denies abscess, Abrasions or rash Neurologic Neurologic: Denies headache(s) or weakness Psychiatric Psychiatric: Denies anxiety, depression or suicidal thoughts Endocrine Endocrinology: Denies polydipsia, polyphagia or polyuria Hematologic/Lymphatic Hematologic/Lymphatic: Denies easy bleeding, easy bruising or lymphadenopathy Allergic/Immunologic Allergic/Immunologic ED: Denies mouth swelling, tongue swelling or urticaria EXAM Physical Exam Const Vital Signs: 03/15/25 08:22 03/15/25 08:37 03/15/25 10:43 Temperature 98.3 F Temperature Source Temporal Pulse Rate 98 95 92 Respiratory Rate 14 Blood Pressure 150/101 H 147/83 H 146/92 H Blood Pressure Mean 117 104 110 Pulse Ox 98 98 98 Oxygen Delivery Method Room Air Room Air Positive well nourished and well developed General Appearance ED: well developed and NAD HEENT Reports TM's clear and moist mucous membranes normocephalic and atraumatic; Negative for trauma or tenderness Tympanic Membrane ED: Yes TM's clear Eyes PERRL and EOMs intact bilaterally General Eye ED: Negative for pale conjunctiva or scleral icterus Neck no lymphadenopathy, supple and no JVD General: Negative for tenderness Chest Wall inspection of chest normal and palpation of chest normal Chest: Negative for tenderness Resp normal respiratory effort and clear to auscultation bilaterally Effort and Inspection: Negative for respiratory distress or pain with movement Auscultation: Negative for rhonchi, wheezes or diminished lung sounds Cardio regular rate, regular rhythm, S1 normal heart sound, S2 normal heart sound and no murmurs Peripheral Pulses: pulses 2+ throughout GI normal to inspection, nondistended, normoactive bowel sounds, soft to palpation, non-distended and no masses GI Narrative: Epigastric tenderness on exam. There is mild guarding. No rebound or rigidity or peritoneal signs. She also some mild diffuse tenderness over the right lower quadrant and suprapubic and left lower quadrant regions. Back/Spine no CVA tenderness and no thoracic nor lumbar tenderness Extremity normal to inspection General Extremety ED: Negative for edema General Extremity: Negative for edema Neuro oriented x3, CN's II-XII intact bilaterally, no sensory deficits noted and gait normal Sensorium / Orientation: awake, alert, oriented to person, oriented to place and oriented to time Motor Exam: strength 5/5 throughout and strength abnormal Psych mental status grossly normal Skin no rashes or lesions noted and no wounds MDM MDM MDM Narrative Medical decision making narrative: Patient presents to the emergency department with abdominal pain has been intermittent for 2 weeks. She has had prior cholecystectomy. She said no vomiting. Patient has had no fever. Pain at times positional. On exam abdomen seems benign and I do not appreciate any masses or hernias. She has had old surgical wounds from laparoscopic cholecystectomy. IV line established. CBC with differential obtained showed a normal white count of 7.5 with hemoglobin 12.9 and platelet count of 359. Chemistries unremarkable. Urinalysis without signs of infection. hCG was negative. LFTs and lipase were normal. Patient was given a GI cocktail and she really did not have much relief with that. At this point patient was concerned about possibility of a hernia although I do not appreciate a hernia on exam. Her pain is all epigastric. I did offer to obtain imaging such as CT scan to evaluate further as etiology of her abdominal pain unclear. I have low suspicion for acute intra-abdominal process and at this point she is comfortable with no imaging and outpatient follow-up. Patient will be given a prescription for few [place] for pain. Advised to return if worsening pain, fever, vomiting, or condition should worsen anyway. Lab Data Attestation: I reviewed the patient's lab results. Labs: Laboratory Results - last 24 hr 03/15/25 03/15/25 03/15/25 09:27 10:01 10:04 WBC 7.5 RBC 4.74 Hgb 12.9 Hct 40.3 MCV 85.0 MCH 27.2 MCHC 32.0 RDW Std Deviation 40.5 RDW Coeff of Keith 13.0 Plt Count 359 MPV 9.4 Immature Gran % (Auto) 0.400 Neut % (Auto) 70.6 H Lymph % (Auto) 17.2 L [place] % (Auto) 7.7 Eos % (Auto) 3.6 Baso % (Auto) 0.5 Absolute Neuts (auto) 5.3 Absolute Lymphs (auto) 1.29 Nucleated RBC % 0 Sodium 136 Potassium 4.4 Chloride 105 Carbon Dioxide 20.9 L Anion Gap 10 BUN 9 Creatinine 0.71 Estim Creat Clear Calc 177.06 Est GFR (MDRD) Non-Af 126 BUN/Creatinine Ratio 13.0 Glucose 88 Calcium 8.6 Total Bilirubin 0.24 AST 21 ALT 18 Alkaline Phosphatase 102 Total Protein 6.4 Albumin 3.5 Globulin 2.8 Albumin/Globulin Ratio 1.2 Lipase 22 Urine Color Straw Urine Clarity Clear Urine pH 7.0 Ur Specific [place] 1.010 Urine Protein Negative Urine Glucose (UA) Normal Urine Ketones Negative Urine Occult Blood Negative Urine Nitrite Negative Urine Bilirubin Negative Urine Urobilinogen Normal Ur Leukocyte Esterase Negative Urine RBC 0 SEEN Urine WBC 0 SEEN Ur Squamous Epith Cells 0-5 SEEN Urine Bacteria 0 SEEN Urine Mucus 0 SEEN Urine Test Negative Discharge Plan Triage Chief Complaint: Abd Pain ED Provider: Alejandro Ch Dx/Rx/DC Orders Clinical Impression: Abdominal pain Instructions: ED Abdominal Pain Unkn Cause Fem Prescriptions: New hydrocodone-acetaminophen 5-325 mg tablet 1 tab PO Q4H PRN PRN (Reason: Pain) 2 Days Qty: 10 0RF ondansetron 4 mg tablet,disintegrating 4 mg PO Q8H PRN PRN (Reason: Nausea) Qty: 10 0RF Primary Care Provider: Care Physician,No Primary Referrals: Care Physician,No Primary [Primary Care Provider, Medical] Print Language: Nigerian Disposition Disposition: Home, Self Care
[2025-03-15] MEDS: Lidocaine 2% Viscous15 ML UDC 15 ML PO (09:22)
[2025-03-15] MEDS: 0.9% Normal Saline (1000mL) 1,000 ML 125 ML IV (09:22)
[2025-03-15 09:41] LABS: Hematocrit 40.3 % (37-47); Hemoglobin 12.9 g/dL (12.0-15.0); Immature Granulocytes Count 0.030 X10^3/uL (0.0-0.0); Mean Corp Hgb Conc 32.0 g/dL (32-36); Mean Corpuscular Volume 85.0 fL (81-99); Mean Platelet Vol. 9.4 fl (6.2-12.0); NRBC Flagged by Analyzer 0 % (0-5); Platelet Count 359 K/mm3 (150-450); RBC Distribution Width CV 13.0 % (11.6-14.6); RBC Distribution Width SD 40.5 fl (35.1-43.9); Red Blood Count 4.74 M/mm3 (4.2-5.4); White Blood Count 7.5 K/mm3 (4.4-11.0)
[2025-03-15 10:10] LABS: Mucous, Urine 0 SEEN /hpf (<or=2+); Red Blood Cells-Urine 0 SEEN /hpf (0-5)
[2025-03-15 10:14] LABS: Lipase 22 U/L (13-75)
[2025-03-15 10:15] LABS: AST(SGOT) 21 U/L (<=31); Alanine Aminotransfer ALT/SGPT 18 U/L (<=34); Albumin, Serum 3.5 g/dL (3.5-5.0); Alkaline Phosphatase 102 U/L (35-104); Anion Gap 10 (5-15); BUN 9 mg/dL (4-19); BUN/Creat Ratio 13.0 RATIO (10-20); Calcium,Total 8.6 mg/dL (7.6-11.0); Carbon Dioxide 20.9 mmol/L (21.0-32.0); Chloride 105 mmol/L (98-108); Estimated Creatinine Clearance 177.06 ml/min (50-250); Globulin 2.8 g/dL (2.2-4.2); Glucose 88 mg/dL (70-99); Potassium 4.4 mmol/L (3.3-5.1)
[2025-03-15 10:17] LABS: Color, Urine Straw (Yellow); Glucose, Dipstick Normal (Normal); Ketone-Dipstick Negative (Negative); Leukocyte Esterase-Dipstick Negative /ul (Negative); Nitrite-Dipstick Negative (Negative); Occult Blood-Urine Negative /ul (Negative); Protein-Dipstick Negative (Negative); Specific Gravity, Urine 1.010 (1.002-1.030); Urine Bilirubin Dipstick Negative (Negative)
[2025-03-15 10:25] LABS: Squamous Epithelial Cells - UA 0-5 SEEN /hpf (5-10)
[2025-03-15 10:35] LABS: Internal QC Validated? YES +Cl - CLEAR BKGD; Pregnancy, Urine Negative Negative; Record Kit Lot#,Urine Preg 980607
[2025-03-15 10:43] VITALS: BP 146/92; PULSE 92; O2SAT 98
[2025-03-15 11:23] VITALS: BP 118/78; PULSE 64; RESP 18; TEMP 36.6; O2SAT 99
--- NOTE | 2025-03-15 13:32 | CM.ED ---
Social Work Reason for visit: No PCP Patient verified that she does not currently have a PCP. [facility] provider list along with flyer for offices that are currently accepting new patients was given to patient. Patient expressed gratitude and stated she did not know there were so many options in the [place] area. No further needs identified at this time. Sumaya Mcdaniel, HOE WORKER, TEST TECH
== END 2025-03-15 11:24 | disposition home or self-care (01) ==
PROVIDERS: Emergency Provider Emergency Medicine; Visit Provider Emergency Medicine
DX: R10.13 Epigastric pain (principal); Z87.891 Personal history of nicotine dependence; Z90.49 Acquired absence of other specified parts of digestive tract
CPT/HCPCS: 80053; 81001; 81025; 83690; 85025; 96360; 96361; 99283; A4216